=== PATIENT | female | born 1935 | race Caucasian/White ===

== ENCOUNTER 2018-01-23 16:00 | Inpatient (IN) ==
[2018-01-23] MEDS ORDERED: LORazepam 1 MG TABLET PO PRN (16:43)
[2018-01-23] MEDS ORDERED: SENNOSIDES 8.6 MG TABLET PO PRN (16:43)
[2018-01-23] MEDS ORDERED: DiphenhydrAMINE 50 MG/ML INJECTION IVP PRN (16:43)
[2018-01-23] MEDS ORDERED: DiphenhydrAMINE 25 MG CAPSULE PO PRN (16:43)
[2018-01-23] MEDS ORDERED: FALL RISK - PHARMACY CONSULT XX ONE (16:43)
--- NOTE | 2018-01-23 17:13 | IRU History & Physical Report ---
[facility] Date: Date: 01/23/18 Time: 170 Chief complaint: I had my hip replaced HPI: Ms. Webb is a pleasant 82 yo female referred by Dr. Vicente Ramon. Her primary care provider is Dr. Oscar Neff. Mrs. Webb had a scheduled right total hip arthroplasty performed by Dr. Ramon on 01/21/2018. Surgery went well but in the postoperative timeframe she developed paroxysmal atrial fibrillation with rapid ventricular response. She apparently has a long history of paroxysmal atrial fibrillation dating back to 2011. She has been on warfarin in this regard. She has been offered RF ablation procedure in the past but declined that. At this time she developed rapid ventricular response in the postoperative timeframe and was transferred to the intensive care unit. She was seen by Dr. Lopez. She was treated medically with verapamil and esmolol. She had control of her rate. She was asymptomatic. She had no chest pain. Consideration was given to cardioversion but this was decided against due to her recent medical standpoint as well as the fact that she had a controlled rate. The patient has developed multiple functional deficits as a result of her recent right total hip arthroplasty. In addition she requires close monitoring of her cardiac status in view of the recent atrial fibrillation with rapid ventricular response. The patient lives with her son in their own home. She has about 2 steps to get up in her home. She has been walking with a single-point cane at home. We discussed the issue of resuscitation with the patient. She declines CPR or any other heroic resuscitative efforts in the event of an arrest. Prior level of functioning is as follows: She was independent for all activities except for walking which was modified independent due to the use of a single-point cane. Current level of functioning is as follows: She is independent for eating require supervision for grooming, and upper body dressing. She requires moderate assistance for lower body dressing, minimum assistance for toileting, bed/chair/wheelchair transfers and toilet transfers. She requires total assistance for walking. She walks with a rolling walker 20 feet. The following medical conditions are noted and require active monitoring and/or management: 1. s/p total hip arthroplasty 2. Paroxysmal atrial fibrillation with episodes of rapid ventricular response 3. Benign essential hypertension The following therapies will be needed: 1. Physical therapy: for transfers and ambulation and stairs. 2. Occupational therapy: for ADL's and transfers. 3. Medical management: for the above conditions. 4. 24 hour Rehabilitation Nursing to monitor and address the following: Close monitoring of her cardiac status, blood pressure and wound monitoring. 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 Bilateral cataract procedure. Right total hip arthroplasty Family History: Family History (Last Reviewed 12/25/17 @ 13:32 by Vicente Ramon MD) Mother Arthritis Heart failure Father Liver cancer - Social History Smoking status: Never smoker second hand exposure: No Substance use type: does not use Alcohol intake: never Alcohol intake frequency: does not drink Housing: house Household members: other (1 adult son) Current occupational status: retired Does patient use chewing tobacco?: No Current residence: Apartment/Private Home Social history: Patient works for [employer] in [place]. She is retired twice from that company. She is a . She lives with her son in their own home. Review of Systems - Constitutional Constitutional: Present: weight gain. Absent: anorexia, chills, fatigue, fever( s), headache(s), lethargy, malaise, night sweats, weakness, weight loss - EENMT Eyes: Absent: blurry vision, change in vision, diplopia Mouth/Throat: Absent: changes in swallowing, painful swallowing, change in taste , bleeding gums, change in voice - Cardiovascular Cardiovascular: Present: dyspnea on exertion. Absent: chest pain, palpitations , syncope, orthopnea, edema, cyanosis, heart murmur Rhythm: Present: abnormal rhythm Vascular: Absent: intermittent claudication, pedal edema, unilateral swelling - Respiratory Respiratory: Present: dyspnea on exertion. Absent: cough, dyspnea, hemoptysis, wheezing, pain on inspiration, chest congestion, excessive phlegm production - Gastrointestinal Gastrointestinal: Absent: abdominal pain, change in bowel habits, constipation, diarrhea, dyspepsia, dysphagia, early satiety, hematochezia, melena, nausea, vomiting - Musculoskeletal Musculoskeletal: Present: arthralgias. Absent: abnormal gait, back pain, joint swelling, limited range of motion, muscle weakness - Integumentary/Breasts Integumentary: Absent: alopecia, erythema, lesions, pruritus, rash, jaundice - Neurological Neurological: Absent: abnormal gait, abnormal movements, abnormal speech, confusion, convulsions, dizziness, focal weakness, frequent falls, headache(s), loss of vision, memory loss, numbness, paresthesias, tremor(s) - Psychiatric Psychiatric: Absent: abnormal sleep pattern, anxiety, depression - Endocrine Endocrine: Absent: cold intolerance, flushing, heat intolerance, palpitations - Hematologic/Lymphatic Hematologic/Lymphatic: Absent: easy bleeding, easy bruising, lymphadenopathy - Allergic/Immunologic Allergic/Immunologic: Absent: urticaria Medications Home Medications Medication Instructions Recorded Confirmed Type Levothyroxine Sodium 112 mcg PO DAILY #0 05/11/14 01/21/18 History colon health 1 cap PO 1200 #0 10/28/16 01/21/18 History Calcium 500 + D [Os Jerry-D 500] 1 tab PO DAILY 12/25/17 01/21/18 History Losartan [Cozaar] 50 mg PO BID 12/25/17 01/21/18 History Louise-3/Dha/Epa/Fish Oil [Fish Oil 1 each PO DAILY 12/25/17 01/21/18 History 1,000 mg Softgel] Verapamil HCl [Verapamil ER] 180 mg PO DAILY 12/31/17 01/21/18 History Potassium Chloride [K-DUR 20 mEq 1 tab PO TID #30 tab 01/14/18 01/21/18 Rx Tablet] Ergocalciferol (Vitamin D2) 50,000 unit PO NOTE 01/21/18 01/21/18 History [Vitamin D2] Acetaminophen [Tylenol] 650 mg PO QID tab 01/23/18 Rx Enoxaparin Sodium [Lovenox] 70 mg SQ BID syringe 01/23/18 Rx Metoprolol Tartrate 100 mg PO BID #0 01/23/18 01/21/18 Rx PEG 3350 17gm PACKET [Miralax] 17 gm PO DAILY packet 01/23/18 Rx Tramadol [Ultram] 50 - 100 mg PO Q6H PRN tab 01/23/18 Rx Verapamil SR [Calan Sr] 180 mg PO DAILY tab 01/23/18 Rx Allergies Allergy/AdvReac Type Severity Reaction Status Date / Time Penicillins Allergy Mild Itching Verified 01/21/18 09:58 amlodipine AdvReac Unknown Nausea and Verified 01/21/18 09:58 Vomiting sulfamethoxazole AdvReac Nausea Verified 01/21/18 09:59 [From Bactrim] trimethoprim [From Bactrim] AdvReac Nausea Verified 01/21/18 09:59 Exam Height/Weight/BMI: Weight 69.8 kg - Constitutional Present: no acute distress, well nourished, well developed, average body habitus , cooperative - Routine HEENT Exam Head: Present: normocephalic, atraumatic. Absent: cushingoid faces, abrasion, laceration, hematoma Eye: Present: EOMI, PERRL. Absent: conjunctival icterus, scleral injection, periorbital swelling, nystagmus ENT: Present: mucous membranes moist, oropharynx clear - Routine Neck Exam Present: supple, full ROM, trachea midline. Absent: lymphadenopathy, thyromegaly, tenderness, swelling - Routine Chest/Breast/Axilla Exam Chest wall: Absent: tenderness, mass Axillae: Absent: lymphadenopathy, mass - Routine Respiratory Exam Present: CTA bilaterally. Absent: accessory muscle use, decreased breath sounds , prolonged expiratory phase, rales, respiratory distress, rhonchi, stridor, wheezes, crackles, distant breath sounds - Routine Cardiovascular Exam Present: S1, S2, no murmur, irregularly irregular. Absent: gallop, S3, S4, click, irregular rhythm - Routine Abdominal Exam Present: soft, normoactive bowel sounds, non distended, non tender. Absent: rebound, guarding, firm, rigid, organomegaly, mass, hernia, wound - Routine Extremities Exam Present: no edema, non tender, pulses intact, normal capillary refill. Absent: cyanosis, clubbing - Routine Back/Spine/Pelvis Exam Back/Spine: Present: full ROM. Absent: scoliosis, kyphosis - Routine Skin Exam Present: intact, dry, warm. Absent: cyanosis, erythema, pallor, mottling, petechiae, urticaria, lesions, jaundice - Routine Neurological Exam Present: alert, oriented X3, CN II-XII intact, moving all extremities, normal speech - Routine Psychiatric Exam Present: normal affect, normal thought process, cooperative, good insight, good judgment. Absent: depressed, anxious Sepsis Assessment - Evaluation Severe Sepsis: none seen IRU A/P (1) S/P hip replacement Qualifiers: Laterality: left Qualified Code(s): Z96.642 - Presence of left artificial hip joint Current visit: Yes Status: Acute (2) A-fib Qualifiers: Atrial fibrillation type: paroxysmal Qualified Code(s): I48.0 - Paroxysmal atrial fibrillation Current visit: No Status: Acute (3) Hypertension Qualifiers: Hypertension type: essential hypertension Qualified Code(s): I10 - Essential (primary) hypertension Current visit: No Status: Acute (4) Paroxysmal atrial fibrillation Current visit: No Status: Chronic DVT Prophylaxis: SCD's, Coumadin Resuscitation Status: Do Not Resuscitate - Course Hospital Course: Hoang Mondragon MD: - Interventions to Obtain Goals Goals Progress/Modifications: Patient has developed multiple functional deficits related to her recent surgery. She has a long history of paroxysmal atrial fibrillation but with recent rapid ventricular response. She has hypertension. She requires a multidisciplinary approach including PT and OT and 24 rehabilitation nursing with medical supervision.
--- NOTE | 2018-01-23 17:39 | IRU 24Hr Post Admit Eval ---
24 Hr Post Admission Physical - Relevant Changes Relevant Changes: No Reviewed: I have reviewed the patient's information and concur with the finding and results of the pre-admission screen. Certification: I certify the patient for rehabilitation. - Patient Condition (1) S/P hip replacement Status: Acute Qualifiers: Laterality: left Qualified Code(s): Z96.642 - Presence of left artificial hip joint Code(s): Z96.649 - Presence of unspecified artificial hip joint Classification: Present on IRF Admission, IRF Tx That Should Address Diagnosis, Diagnosis Requiring Medical Follow Up (2) A-fib Status: Acute Qualifiers: Atrial fibrillation type: paroxysmal Qualified Code(s): I48.0 - Paroxysmal atrial fibrillation Code(s): I48.91 - Unspecified atrial fibrillation Classification: Present on IRF Admission, IRF Tx That Should Address Diagnosis, Diagnosis Requiring Medical Follow Up (3) Hypertension Status: Acute Qualifiers: Hypertension type: essential hypertension Qualified Code(s): I10 - Essential (primary) hypertension Code(s): I10 - Essential (primary) hypertension Classification: Present on IRF Admission, IRF Tx That Should Address Diagnosis, Diagnosis Requiring Medical Follow Up (4) Paroxysmal atrial fibrillation Status: Chronic Code(s): I48.0 - Paroxysmal atrial fibrillation Classification: Present on IRF Admission, IRF Tx That Should Address Diagnosis, Diagnosis Requiring Medical Follow Up - Prior Functional Status Lives With: Other (with adult son) Residence Type: Apartment/Private Home Assitive Devices: Straight Cane Prior Functional Status: Indep. at home or school, Indep. w/ IADL - Current Functional Status Current Level of Function: Current level of functioning is as follows: She is independent for eating require supervision for grooming, and upper body dressing. She requires moderate assistance for lower body dressing, minimum assistance for toileting, bed/chair/wheelchair transfers and toilet transfers. She requires total assistance for walking. She walks with a rolling walker 20 feet. Failed Alternative Therapy: Arrived from Acute Care Patient Requirements: The patient requires oversight by rehabilitation physician to manage their rehabilitation treatment plan and multidisciplinary approach to care that can only be provided in an IRF and requires a multidisciplinary approach to care, provided by professional PTs, OTs, STs, dieticians, RTs, rehabilitation nurses and is not available in lesser levels of care. Limitations Req: Mobility Impairment, ADL Impairment Physical Therapy Minutes: 90 Occupational Therapy Minutes: 90 Therapy: The patient is to receive therapy at least 5 days a week. ROM Deficit: Right Lower Extremity - Complications/Comorbidities Impact on Functional Outcomes: Patient's pain as well as potential rapid ventricular response from her atrial fibrillation may negatively impact her functional outcome. - Plan to Avoid Complications Plan to Avoid Complications: The patient cannot receive this care in a lesser intensive setting such as Alf or Outpatient Therapy due to the patient requiring the following : Need for a multidisciplinary approach with PT, OT and 24 hour rehabilitation nursing to monitor atrial fibrillation and cardiac status as well as blood pressure. She requires medical supervision of these as well. .
[2018-01-23 17:56] VITALS: BMI 29.6
[2018-01-23] MEDS: ACETAMINOPHEN 325 MG TABLET PO SCH (18:38)
[2018-01-23] MEDS ORDERED: BISACODYL 10 MG SUPPOSITORY RECTALLY SCH (20:00)
[2018-01-23] MEDS: DOCUSATE SODIUM 100 MG CAPSULE PO SCH (20:42)
[2018-01-23] MEDS: ENOXAPARIN 80 MG/0.8 ML INJECTION SQ SCH (20:43)
[2018-01-23] MEDS: LOSARTAN 50 MG TABLET PO SCH (20:44)
[2018-01-23] MEDS: SENNOSIDES 8.6 MG TABLET PO SCH (20:44)
[2018-01-23] MEDS: NOZIN NASAL SWAB NAS SCH (20:46)
[2018-01-24] MEDS: NOZIN NASAL SWAB NAS SCH ×4 (00:23→21:08)
[2018-01-24] MEDS: ACETAMINOPHEN 325 MG TABLET PO SCH ×5 (01:25→21:09)
[2018-01-24] MEDS: TRAMADOL 50 MG TABLET PO PRN ×2 (05:05→23:11)
[2018-01-24] MEDS: LEVOTHYROXINE 112 MCG TABLET PO SCH ×2 (05:08→06:14)
[2018-01-24] MEDS: LOSARTAN 50 MG TABLET PO SCH ×2 (08:15→21:08)
[2018-01-24] MEDS: DOCUSATE SODIUM 100 MG CAPSULE PO SCH (08:15)
[2018-01-24] MEDS: POLYETHYL GLYCOL 3350 17gm PACKET PO SCH (08:25)
--- NOTE | 2018-01-24 08:36 | Consult Note ---
Consult Information - Data of Consult Consult date: 01/24/18 Requesting Physician: Hoang Mondragon MD Primary Care Provider: Richar Neff MD Family Provider: Richar Neff MD - Consult Narrative Reason for consult: S/P right hip arthroplasty, a-fib History of present illness: Ms. Tika Webb is a pleasant 82-year-old female patient of Dr. Neff who underwent elective right total hip arthroplasty performed by Dr. Ramon on 2017. She reports that her surgery went well but in the postoperative timeframe she developed paroxysmal atrial fibrillation with rapid ventricular response. She was transferred to the ICU and Dr. Lopez, her freezer worker was consulted. She was treated medically with an esmolol drip as well as continuation of her home verapamil. She established rate control and the esmolol drip was discontinued on 01/22/18. At that time, Dr. Lopez recommended increasing her home metoprolol dose from 50mg BID to 100mg BID while continuing her home verapamil at 180mg daily for continued rate control. She apparently has a long history of paroxysmal atrial fibrillation dating back to 2011 and is chronically anticoagulated on warfarin. She has been offered RF ablation procedure in the past but declined. She underwent cardioversion in June 2015. Throughout her acute admission, she remained asymptomatic without chest pain, shortness of breath, dizziness, lightheadedness or syncope. She was noted to have some acute post op anemia with labs continuing to show her hemoglobin trending down. She has a history of hypothyroidism and is currently on Synthroid 122mcg daily. Recent TSH revealed low TSH of 0.17 on 12/25/17. Given she has developed multiple functional deficits as a result of her recent right total hip arthroplasty as well as her continued need for close monitoring of her cardiac status in view of the recent atrial fibrillation with rapid ventricular response, she was admitted to IRU. The hospitalist service was consulted for continued medical management. She is seen on admission in the dining room after having completed almost all of her breakfast. She reports that she doesn't' have much of an appetite but is eating well. She admits to having a brief episode of lightheadedness this morning after standing up but denies any other complaints or concerns. No chest pain, shortness of breath, abdominal pain, nausea, vomiting or dysuria. Her bowels are moving and her pain is well controlled. She declines CPR or any other heroic resuscitative efforts in the event of an arrest. Past Medical History Patient Stated Medical History S/P rigth hip arthroplasty - 01/21/18, Dr. Ramon. Paroxysmal a-rib with history of RVR. Hypertension. Nonrheumatic mitral and tricuspid insufficiency. Chronic anticoagulation on warfarin. Hypothyroidism. Osteoarthritis. Cataracts. History of hypokalemia- resolved. History of cardioversion - 06/20/15, Dr. Lopez. Surgical History: Appendix - 1963. Adhesions removed off of ovaries - 1965. Bilateral cataract procedure. Right total hip arthroplasty - 01/21/18, Dr. Ramon. Cardioversion - 06/20/15. Family History Updates: Mother - Arthritis, Heart failure. Father - Liver cancer. - Social History Smoking status: Never smoker Substance use type: does not use Alcohol intake frequency: does not drink Housing: house Household members: family (adult son) Current occupational status: employed ([employer] in [place] - retired twice, but continues to work), retired Current residence: Apartment/Private Home Social history: PCP - Dr. Neff. Cardio - Dr. Lopez. Review of Systems All systems PM: 10-point ROS was reviewed, no additional remarkable complaints except - Constitutional Constitutional: Present: fatigue, weakness (generalized). Absent: chills, fever (s), headache(s), lethargy, malaise, night sweats - EENMT Eyes: Absent: diplopia, loss of vision, photophobia Ears: Absent: ear pain Balance: Absent: vertigo, falling to one side Nose: Absent: nosebleeds Mouth/Throat: Absent: sore throat, changes in swallowing, dry mouth - Cardiovascular Cardiovascular: Present: heart murmur. Absent: chest pain, palpitations, syncope, dyspnea on exertion, orthopnea, edema Vascular: Absent: pallor of an extermity, pedal edema - Respiratory Respiratory: Absent: cough, dyspnea, hemoptysis, dyspnea on exertion, wheezing, pain on inspiration, chest congestion - Gastrointestinal Gastrointestinal: Absent: abdominal pain, constipation, diarrhea, hematochezia, melena, nausea, vomiting - Genitourinary Genitourinary: Absent: dysuria, flank pain, hematuria Menstruation: post menopausal - Musculoskeletal Musculoskeletal: Present: muscle weakness. Absent: back pain, deformity - Integumentary/Breasts Integumentary: Absent: rash - Neurological Neurological: Present: weakness. Absent: confusion, convulsions, focal weakness , headache(s) - Psychiatric Psychiatric: Absent: anxiety, depression - Endocrine Endocrine: Absent: flushing, palpitations - Hematologic/Lymphatic Hematologic/Lymphatic: Present: easy bruising (chronic anticoagulation) - Allergic/Immunologic Allergic/Immunologic: Absent: seasonal rhinorrhea Medications Home Medications Medication Instructions Recorded Confirmed Type Levothyroxine Sodium 112 mcg PO DAILY #0 05/11/14 01/24/18 History colon health 1 cap PO 1200 #0 10/28/16 01/21/18 History Calcium 500 + D [Os Jerry-D 500] 1 tab PO DAILY 12/25/17 01/21/18 History Losartan [Cozaar] 50 mg PO BID 12/25/17 01/24/18 History [place]-3/Dha/Epa/Fish Oil [Fish Oil 1 each PO DAILY 12/25/17 01/21/18 History 1,000 mg Softgel] Verapamil HCl [Verapamil ER] 180 mg PO DAILY 12/31/17 01/21/18 History Potassium Chloride [K-DUR 20 mEq 1 tab PO TID #30 tab 01/14/18 01/24/18 Rx Tablet] Ergocalciferol (Vitamin D2) 50,000 unit PO NOTE 01/21/18 01/21/18 History [Vitamin D2] Acetaminophen [Tylenol] 650 mg PO QID tab 01/23/18 Rx Enoxaparin Sodium [Lovenox] 70 mg SQ BID syringe 01/23/18 Rx Metoprolol Tartrate 100 mg PO BID #0 01/23/18 01/24/18 Rx PEG 3350 17gm PACKET [Miralax] 17 gm PO DAILY packet 01/23/18 01/24/18 Rx Tramadol [Ultram] 50 - 100 mg PO Q6H PRN tab 01/23/18 01/24/18 Rx Verapamil SR [Calan Sr] 180 mg PO DAILY tab 01/23/18 01/24/18 Rx Allergies Allergy/AdvReac Type Severity Reaction Status Date / Time Penicillins Allergy Mild Itching Verified 01/21/18 09:58 amlodipine AdvReac Unknown Nausea and Verified 01/21/18 09:58 Vomiting sulfamethoxazole AdvReac Nausea Verified 01/21/18 09:59 [From Bactrim] trimethoprim [From Bactrim] AdvReac Nausea Verified 01/21/18 09:59 Exam Vital Signs: Temperature 98.3 F 01/24/18 08:00 Pulse Rate 123 H 01/24/18 08:00 Respiratory Rate 18 01/24/18 08:00 Blood Pressure 140/76 H 01/24/18 08:00 Pulse Oximetry 99 01/24/18 08:00 Telemetry Rhythm: A-fib with RVR Height/Weight/BMI: Height 5 ft 5 in Weight 153 lb 14.122 oz Body Mass Index 29.6 - Constitutional Present: no acute distress, well nourished, well developed, cooperative - Routine HEENT Exam Head: Present: normocephalic, atraumatic Eye: Present: PERRL. Absent: conjunctival icterus ENT: Present: mucous membranes moist, oropharynx clear - Routine Neck Exam Present: supple, full ROM, trachea midline - Routine Chest/Breast/Axilla Exam Chest wall: Absent: tenderness, pacemaker - Routine Respiratory Exam Present: CTA bilaterally. Absent: accessory muscle use, dyspnea, rales, respiratory distress, rhonchi, stridor, wheezes, crackles - Routine Cardiovascular Exam Present: irregularly irregular (a-fib with RVR) - Routine Abdominal Exam Present: soft, normoactive bowel sounds, non distended, non tender - Routine Extremities Exam Present: no edema, pulses intact - Routine Back/Spine/Pelvis Exam Back/Spine: Present: full ROM. Absent: vertebral tenderness - Routine Skin Exam Present: dry, pallor, warm. Absent: jaundice Comments: afebrile. - Routine Neurological Exam Present: alert, oriented X3, moving all extremities, hearing grossly intact, normal speech. Absent: facial asymmetry - Routine Psychiatric Exam Present: normal affect, cooperative Results - Labs CBC & Chem 7: 01/24/18 04:03 01/24/18 04:03 Assessment and Plan (1) S/P hip replacement Problem details: 01/21/18 - Dr. Ramon (right). Current visit: Yes Status: Acute (2) Paroxysmal atrial fibrillation Current visit: Yes Status: Chronic (3) Nonrheumatic mitral valve insufficiency Current visit: No Status: Chronic (4) Non-rheumatic tricuspid valve insufficiency Current visit: No Status: Chronic Assessment and Plan: Assessment: S/P rigth hip arthroplasty - 01/21/18, Dr. Ramon. Generalized debility and gait instability secondary to recent surgery. Paroxysmal a-rib with RVR. Acute blood loss anemia. Hyperthyroidism - history of hypothyroidism currently on Synthroid. Hypertension. Nonrheumatic mitral and tricuspid insufficiency. Chronic anticoagulation on warfarin. Osteoarthritis. Cataracts. History of hypokalemia- resolved. History of cardioversion - 06/20/15, Dr. Lopez. Plan - 01/24/18: Admit IRU for continued therapies and pain control per Dr. Mondragon for improvement in functional abilities and strength. A-fib with RVR (HR 140-150) on admission. Recent treatment in ICU with esmolol drip with improvement. Drip discontinued 01/22/18. Continue home medications - Cozaar 50mg BID and verapamil SR 180mg daily. Home metoprolol dose was increased from 50mg BID to 100mg BID by cardiology on . Will continue metoprolol 100mg BID. Consult Dr. Lopez for continued cardiac care. Continue to monitor closely on telemetry. History of hypothyroidism. Home Synthroid dose 112mcg daily. TSH on 01/22/18 was low at 0.17. Will decrease Synthroid dose to 88mcg daily and recommend rechecking TSH in 4-6 weeks. Hemoglobin slow trending down since surgery. Currently Hgb 9.0. Continue to monitor periodically. Patient asymptomatic without signs of acute bleeding. Lovenox for DVT prophylaxis and bridge therapy with Coumadin until INR therapeutic - currently INR 1.47. SCDs. Encourage incentive spirometry. Recheck labs on 01/26/18 to monitor blood counts, electrolytes and renal function. DVT Prophylaxis: SCD's, Lovenox, Coumadin Resuscitation Status: Do Not Resuscitate - Time spent with patient Time with patient PN: 50 minutes - Physician Narrative Physician: Joanne Angulo MD Narrative: Date: 01/24/18 Time: 1949 I have independently evaluated and examined this patient. I reviewed the chart, the patient's history, and the STEAM OVEN OPERATOR/PA's documented findings as above. We discussed and formulated the assessment and plan as above with additions as below: Mrs. Webb transfer to IRU yesterday evening following right elective WESLEY on 01/21 complicated by atrial fibrillation as described above. She denies current palpitations and reports pain control is adequate. She had minor lightheadedness this morning but was subsequently able to get up and walk with physical therapy without difficulty today. She has no concerns other than getting stronger and being able to go home functionally independently. NAD, alert, fluent speech Respirations nonlabored, good airflow, breath sounds clear Regular rhythm, S1-S2 INR 1.47, hemoglobin 9.0 (preop hemoglobin 13.3 on 01/14/18) Medications adjusted as noted above to minimize recurrent tachycardia. Monitor hemoglobin intermittently, do not anticipate significant further drop in hemoglobin at this point. Hospital Course Summary Disclaimer: The visit summary below is not to be considered part of the above Progress Note. Hospital Course: Plan - 01/24/18: Admit IRU for continued therapies and pain control per Dr. Mondragon for improvement in functional abilities and strength. A-fib with RVR (HR 140-150) on admission. Recent treatment in ICU with esmolol drip with improvement. Drip discontinued 01/22/18. Continue home medications - Cozaar 50mg BID and verapamil SR 180mg daily. Home metoprolol dose was increased from 50mg BID to 100mg BID by cardiology on . Will continue metoprolol 100mg BID. Consult Dr. Lopez for continued cardiac care. Continue to monitor closely on telemetry. History of hypothyroidism. Home Synthroid dose 112mcg daily. TSH on 01/22/18 was low at 0.17. Will decrease Synthroid dose to 88mcg daily and recommend rechecking TSH in 4-6 weeks. Hemoglobin slow trending down since surgery. Currently Hgb 9.0. Continue to monitor periodically. Patient asymptomatic without signs of acute bleeding. Lovenox for DVT prophylaxis and bridge therapy with Coumadin until INR therapeutic - currently INR 1.47. SCDs. Encourage incentive spirometry. Recheck labs on 01/26/18 to monitor blood counts, electrolytes and renal function.
[2018-01-24] MEDS ORDERED: WARFARIN - PHARMACY CONSULT MC ONE (08:55)
[2018-01-24] MEDS ORDERED: DOCUSATE SODIUM 100 MG CAPSULE PO PRN (09:26)
--- NOTE | 2018-01-24 09:27 | Pharmacy Consult ---
Pharmacy Consult-Warfarin - Laboratory Information 01/24/18 04:03 INR 1.47 H - Consult Information Not in target range yet. Warfarin 6mg ordered for today. Thank you.
[2018-01-24] MEDS: ENOXAPARIN 80 MG/0.8 ML INJECTION SQ SCH ×2 (09:32→21:08)
--- NOTE | 2018-01-24 11:26 | IRU Progress Note ---
- Subjective/Serverity of Illness Date: 01/24/18 Ms. Webb was assessed in her room today with therapy present. She is cooperative with therapy. Occupational therapy noted that there was some bump in her heart rate with activity. Reviewed telemetry indicates a heart rate maximum of 133, in atrial fibrillation pattern. She was however asymptomatic in this regard. She denies any dyspnea. She denies any chest pain. She would like to use her "Sepaton" probiotic from home and I told her that would be fine. She reports that the pain is a limiting factor but is reasonably well controlled at present. Exam Vital Signs: Temperature 98.3 F 01/24/18 08:00 Pulse Rate 123 H 01/24/18 08:00 Respiratory Rate 18 01/24/18 08:00 Blood Pressure 140/76 H 01/24/18 08:00 Pulse Oximetry 99 01/24/18 08:00 Height/Weight/BMI: Height 1.65 m Weight 69.8 kg Body Mass Index 29.6 - Constitutional Present: no acute distress, well nourished, well developed, cooperative Comments: loquacious - Routine HEENT Exam Head: Present: normocephalic Eye: Present: EOMI. Absent: scleral injection ENT: Present: mucous membranes moist, oropharynx clear - Routine Neck Exam Present: supple - Routine Respiratory Exam Present: CTA bilaterally. Absent: wheezes - Routine Cardiovascular Exam Present: S1, S2, murmur, irregularly irregular - Routine Abdominal Exam Present: soft, normoactive bowel sounds, non distended. Absent: tenderness - Routine Extremities Exam Present: edema (trace edema right lower extremity as anticipated.), normal capillary refill - Routine Skin Exam Present: dry, warm - Routine Neurological Exam Present: alert, oriented X3, CN II-XII intact - Routine Psychiatric Exam Present: normal affect, cooperative Results IRU - Labs Labs: Reviewed INR which is subtherapeutic at 1.47, managed by pharmacy. Also reviewed telemetry strips demonstrating atrial fibrillation with rates as high as 133 but now back down. IRU A/P (1) S/P hip replacement Qualifiers: Laterality: left Qualified Code(s): Z96.642 - Presence of left artificial hip joint Problem details: 01/21/18 - Dr. Ramon (right). Current visit: Yes Status: Acute Pain management appears to be adequate. We will try to get back on narcotics and rely on Tylenol etc. Unable to use nonsteroidals in view of her use of warfarin. (2) A-fib Qualifiers: Atrial fibrillation type: paroxysmal Qualified Code(s): I48.0 - Paroxysmal atrial fibrillation Current visit: No Status: Acute Has atrial fibrillation on telemetry which is been rather asymptomatic. Heart rate does bump up with activity as anticipated. INR managed by pharmacy and somewhat subtherapeutic at present. (3) Hypertension Qualifiers: Hypertension type: essential hypertension Qualified Code(s): I10 - Essential (primary) hypertension Current visit: No Status: Chronic Blood pressure is been reasonably well-controlled while on rehabilitation. (4) Paroxysmal atrial fibrillation Current visit: No Status: Chronic DVT Prophylaxis: SCD's, Lovenox, Coumadin Resuscitation Status: Do Not Resuscitate - Course Hospital Course: Hoang Mondragon MD: 01/24/18 11:27 Getting started with therapy and appears to be participatory. Reports pain adequately controlled in the hip. Atrial fib with occasional responses up to 133, asymptomatic. Denies dyspnea. - Interventions to Obtain Goals PT Treatment Plan: Balance/Proprioception, Functional Activities, Manual Therapy , Patient/Family Education, Therapeutic Exercise OT Treatment Plan: ADL (Basic Care), Balance Training, IADL, Pt./Family Education, Ther. Exercise for ADL Goals Progress/Modifications: Patient seems to be settling into rehabilitation routine well. Denies chest pain or shortness of breath. Reports pain is fairly well-controlled. We will try to schedule regular doses of Tylenol and just use narcotics as needed. In addition, we are monitoring her atrial fibrillation which at present is asymptomatic and not resulting in hypotension. Please note that the patient's individual plan of care was developed and documented today, requiring review of therapy notes, medical conditions and anticipated functional recovery. This required additional medical decision making with regard to interaction of the patient's medical issues with the anticipated functional recovery. Please see separate document
--- NOTE | 2018-01-24 11:31 | IRU Plan of Care ---
[facility] Overall Plan of Care - Date Date: 01/24/18 - Patient Impairments (1) S/P hip replacement Qualifiers: Laterality: left Qualified Code(s): Z96.642 - Presence of left artificial hip joint Code(s): Z96.649 - Presence of unspecified artificial hip joint Status: Acute Classification: Present on IRF Admission, IRF Tx That Should Address Diagnosis, Diagnosis Requiring Medical Follow Up (2) Paroxysmal atrial fibrillation Code(s): I48.0 - Paroxysmal atrial fibrillation Status: Chronic Classification: Present on IRF Admission, IRF Tx That Should Address Diagnosis, Diagnosis Requiring Medical Follow Up (3) Nonrheumatic mitral valve insufficiency Code(s): I34.0 - Nonrheumatic mitral (valve) insufficiency Status: Chronic Classification: Present on IRF Admission, Diagnosis Requiring Medical Follow Up (4) Non-rheumatic tricuspid valve insufficiency Code(s): I36.1 - Nonrheumatic tricuspid (valve) insufficiency Status: Chronic Classification: Present on IRF Admission, Diagnosis Requiring Medical Follow Up (5) Essential (primary) hypertension Code(s): I10 - Essential (primary) hypertension Status: Chronic Classification: Present on IRF Admission, IRF Tx That Should Address Diagnosis, Diagnosis Requiring Medical Follow Up - Relevant Changes Relevant Changes: No Reviewed: I have reviewed the patient's information and concur with the finding and results of the pre-admission screen. Certification: I certify the patient for rehabilitation. - Medical Prognosis Medical Prognosis: Good Vital Signs: Last Vital Signs Temp 98.3 F 01/24/18 08:00 Pulse 123 H 01/24/18 08:00 Resp 18 01/24/18 08:00 BP 140/76 H 01/24/18 08:00 Pulse Ox 99 01/24/18 08:00 - Anticipated Interventions Anticipated Interventions: The patient requires inpatient IRF care for PT and OT for residuals remaining from hip replacement and atrial fib with RVR resulting in muscular weakness and strength deficits. An individualized overall plan of care has been developed after careful review of the patient's preadmission screening, post admission physician evaluation and assessments of all therapy disciplines and/or other pertinent clinicians involved in treating the patient. This indicates medical necessity and rehabilitation necessity have been established through a thorough review of all available medical information. ROM Deficit: Right Lower Extremity Strength Deficits: Right Lower Extremity - Current Functional Status Failed Alternative Therapy: Arrived from Acute Care Patient Requires: The patient requires oversight by rehabilitation physician to manage their rehabilitation treatment plan and multidisciplinary approach to care that can only be provided in an IRF and requires a multidisciplinary approach to care, provided by professional PTs, OTs, STs, rehabilitation nurses, and may require STs, dieticians, and RTS. This is not available in lesser levels of care. Physical Therapy Minutes: 90 Occupational Therapy Minutes: 90 Therapy: The patient is to receive therapy at least 5 days a week. - Anticipated LOS/Outcomes Anticipated Functional Outcome: It is anticipated the patient will go to return to her home and live with her son at independent or modified independent level of functioning for ADLs, ambulation, transfers etc. It is anticipated that her atrial fibrillation will be adequately controlled and remain asymptomatic. Anticipated Length of Stay (days): 10 Anticipated DC Destination: Home, Self Care, Home Health Service Home Safety Plan: The patient will be provided with the development of a Home Safety Plan for return to a home or home-like environment and and to ensure safety post discharge. - Plan to Avoid Complications Barriers to Attaining Goals: Weakness, Endurance, Pain Control Plan to Avoid Complications: The patient cannot receive this care in a lesser intensive setting such as Senior Living or Outpatient Therapy due to the patient requiring the following : Patient has had rapid ventricular response from her atrial fibrillation. She has history of elevated blood pressure as well. She requires a multidisciplinary approach with PT, OT, 24 hour rehabilitation nursing and medical supervision to allow her to return to her previous level of functioning at a modified independent or independent level. This cannot be provided at a lower level of care.
[2018-01-24] MEDS ORDERED: WARFARIN 6 MG TABLET PO SCH (12:00)
--- NOTE | 2018-01-24 17:13 | Cardiology Consult Note ---
<Verito Coronado - Last Filed: 01/24/18 17:07> History of Present Illness Consult date: 01/24/18 Consult reason: atrial fibrillation Chief complaint: AFib RVR History of present illness: Tika is a 82 year old female who is well known to Dr. Lopez with a history PAF , nonrheumatic mitral and tricuspid insufficiency, HTN who is S/P Right hip arthroplasty and had Afib with RVR. She is chronically in A Fib, rate controlled and was discharged to IRU yesterday and this morning again had Afib RVR .Dr. Lopez is consulted for management and we appreciate the consult. She is seen in her room on IRU. She is asymptomatic. Currently rate is controlled. She denies chest pain or pressure, she denies racing or skipping heart beats, she denies nausea, dizziness or lightheadedness. Review of Systems - Constitutional Constitutional: Absent: chills, fatigue, fever(s) - EENMT Eyes: Absent: change in vision Balance: Absent: vertigo Mouth/Throat: Absent: sore throat - Cardiovascular Cardiovascular: Absent: chest pain, palpitations, syncope, dyspnea on exertion, orthopnea - Respiratory Respiratory: Absent: cough, dyspnea - Gastrointestinal Gastrointestinal: Absent: abdominal pain, nausea, vomiting - Genitourinary Genitourinary: Absent: dysuria - Integumentary/Breasts Integumentary: Absent: rash - Neurological Neurological: Absent: dizziness - Endocrine Endocrine: Absent: palpitations PFSH Patient Stated Medical History Cataracts Yes Cardiac Arrhythmia Yes: AFib Hypertension Yes Valvular Heart Disease Yes: stable tricuspid and mitral valve insuff per cardiology Sleep Apnea No Diabetes Mellitus Type 1 No Diabetes Mellitus Type 2 No Constipation No Hx Incontinence No Osteoarthritis Yes: right hip Other Musculoskeletal Yes: RA; osteopenia Blood Transfusions Yes: no known reactions Clinic Medical History (Last Reviewed 12/25/17 @ 13:32 by Vicente Ramon MD) Atrial fibrillation (Chronic Medical) Surgical History: Appendix - 1963. Adhesions removed off of ovaries - 1965. Bilateral cataract procedure. Right total hip arthroplasty - 01/21/18, Dr. Ramon. Cardioversion - 06/20/15. Family History: Family History (Last Reviewed 12/25/17 @ 13:32 by Vicente Ramon MD) Mother Arthritis Heart failure Father Liver cancer Family History Updates: Mother - Arthritis, Heart failure. Father - Liver cancer. - Social History Smoking status: Never smoker second hand exposure: No Substance use type: does not use Alcohol intake: never Alcohol intake frequency: does not drink Housing: house Household members: family (adult son) Current occupational status: employed (Merged with [employer] in [place] - retired twice, but continues to work), retired Does patient use chewing tobacco?: No Current residence: Apartment/Private Home Medications Home Medications Medication Instructions Recorded Confirmed Type colon health 1 cap PO 1200 #0 10/28/16 01/21/18 History Calcium 500 + D [Os Jerry-D 500] 1 tab PO DAILY 12/25/17 01/21/18 History Losartan [Cozaar] 50 mg PO BID 12/25/17 01/24/18 History [place]-3/Dha/Epa/Fish Oil [Fish Oil 1 each PO DAILY 12/25/17 01/21/18 History 1,000 mg Softgel] Potassium Chloride [K-DUR 20 mEq 1 tab PO TID #30 tab 01/14/18 01/24/18 Rx Tablet] Ergocalciferol (Vitamin D2) 50,000 unit PO NOTE 01/21/18 01/21/18 History [Vitamin D2] Acetaminophen [Tylenol] 650 mg PO QID tab 01/23/18 Rx PEG 3350 17gm PACKET [Miralax] 17 gm PO DAILY packet 01/23/18 01/24/18 Rx Digoxin [Lanoxin] 125 mcg PO DAILY #30 tab 01/30/18 Rx Furosemide [Lasix 40 mg Tab] 40 mg PO DAILY #30 tab 01/30/18 Rx Levothyroxine Tab [Synthroid] 88 mcg PO ACB #30 tab 01/30/18 Rx Metoprolol Tartrate [Lopressor] 200 mg PO BIDWM #60 tab 01/30/18 Rx PEG 3350 17gm PACKET [Miralax] 17 gm PO DAILY packet 01/30/18 Rx Verapamil SR [Calan Sr] 240 mg PO DAILY #30 tab 01/30/18 Rx Warfarin [Coumadin] 3 mg PO DAILY #30 tab 01/30/18 Rx Tramadol [Ultram] 50 mg PO Q6H PRN #40 tab 01/31/18 Rx Allergies Allergy/AdvReac Type Severity Reaction Status Date / Time Penicillins Allergy Mild Itching Verified 01/21/18 09:58 sulfamethoxazole Allergy Unknown Nausea Unverified 01/31/18 10:19 trimethoprim Allergy Unknown Nausea Unverified 01/31/18 10:19 amlodipine AdvReac Unknown Nausea and Verified 01/21/18 09:58 Vomiting Exam Vital signs: Temperature 97.9 F 01/24/18 15:59 Pulse Rate 92 01/24/18 16:35 Respiratory Rate 20 01/24/18 15:59 Blood Pressure 153/79 H 01/24/18 15:59 Pulse Oximetry 100 01/24/18 15:59 - Constitutional no acute distress, well nourished, cooperative - Routine HEENT Exam Head: Present: normocephalic ENT: Present: mucous membranes moist - Routine Neck Exam Absent: JVD, carotid bruit - Routine Chest/Breast/Axilla Exam Chest wall: Absent: tenderness - Routine Respiratory Exam Present: CTA bilaterally. Absent: rales, wheezes - Routine Cardiovascular Exam Present: no murmur, irregularly irregular - Routine Abdominal Exam Present: soft - Routine Extremities Exam Present: no edema - Routine Skin Exam Present: intact, dry, warm - Routine Neurological Exam Present: alert, oriented X3 - Routine Psychiatric Exam Present: normal affect, normal thought process Results 01/24/18 04:03 01/24/18 04:03 CBC 01/24/18 Range/Units 04:03 WBC 10.1 (4.5-11.0) T/MM3 RBC 2.77 L (4.00-5.20) M/MM3 Hgb 9.0 L (12-16) GM/DL Hct 27.5 L (36-46) % Plt Count 305 (130-400) T/MM3 Neut # (Auto) 6.5 (1.8-7.7) T/MM3 Lymph # (Auto) 2.3 (1-4.8) T/MM3 [place] # (Auto) 1.0 H (0-0.8) T/MM3 Eos # (Auto) 0.3 (0-0.5) T/MM3 Baso # (Auto) 0.0 (0-0.2) T/MM3 Comprehensive Metabolic Panel 01/24/18 Range/Units 04:03 Sodium 139 (134-144) MEQ/L Potassium 4.3 (3.6-5) MEQ/L Chloride 106 (98-107) MEQ/L Carbon Dioxide 23 (22-30) MEQ/L BUN 17.0 (7-17) MG/DL Creatinine 0.7 D (0.7-1.2) mg/dL Glucose 89 (65-110) MG/DL Calcium 8.7 (8.4-10.2) MG/DL Intake and Output 01/24/18 01/24/18 01/24/18 06:59 14:59 22:59 Intake Total 667 / 667 Balance 7 / 667 Intake: Oral 7 / 667 Other: Urine Appearance Clear Urine Color Yellow Yellow Straw Urine Odor Normal Normal Stool Color Brown Stool Consistency Loose Size of Bowel Movement Small # Voids 1 1 1 # Bowel Movements 1 Assessment and Plan - Assessment and Plan (1) Paroxysmal atrial fibrillation Status: Chronic Chronic: Rate control with Metoprolol 100mg po BID - Verapamil 180mg daily for rate control - Coumadin for stroke prevention - Lovenox 1mg/kg until INR therapeutic - EKG please (2) Nonrheumatic mitral valve insufficiency Status: Chronic (3) Non-rheumatic tricuspid valve insufficiency Status: Chronic (4) Essential (primary) hypertension Status: Chronic (5) S/P hip replacement Problem details: 01/21/18 - Dr. Ramon (right). Status: Acute - Assessment and Plan A FIB: Chronic: Rate control with Metoprolol 100mg po BID - Verapamil 180mg daily for rate control - Coumadin for stroke prevention - Lovenox 1mg/kg until INR therapeutic - EKG please Thank you for allowing us to participate in the care of this patient. Hospital Course Summary Disclaimer: The visit summary below is not to be considered part of the above Progress Note. Hospital Course: Plan - 01/24/18: Admit IRU for continued therapies and pain control per Dr. Mondragon for improvement in functional abilities and strength. A-fib with RVR (HR 140-150) on admission. Recent treatment in ICU with esmolol drip with improvement. Drip discontinued 01/22/18. Continue home medications - Cozaar 50mg BID and verapamil SR 180mg daily. Home metoprolol dose was increased from 50mg BID to 100mg BID by cardiology on . Will continue metoprolol 100mg BID. Consult Dr. Lopez for continued cardiac care. Continue to monitor closely on telemetry. History of hypothyroidism. Home Synthroid dose 112mcg daily. TSH on 01/22/18 was low at 0.17. Will decrease Synthroid dose to 88mcg daily and recommend rechecking TSH in 4-6 weeks. Hemoglobin slow trending down since surgery. Currently Hgb 9.0. Continue to monitor periodically. Patient asymptomatic without signs of acute bleeding. Lovenox for DVT prophylaxis and bridge therapy with Coumadin until INR therapeutic - currently INR 1.47. SCDs. Encourage incentive spirometry. Recheck labs on 01/26/18 to monitor blood counts, electrolytes and renal function. <Tej Lopez - Last Filed: 02/05/18 12:28> [facility] Patient Stated Medical History Cataracts Yes Cardiac Arrhythmia Yes: AFib Hypertension Yes Valvular Heart Disease Yes: stable tricuspid and mitral valve insuff per cardiology Sleep Apnea No Diabetes Mellitus Type 1 No Diabetes Mellitus Type 2 No Constipation No Hx Incontinence No Osteoarthritis Yes: right hip Other Musculoskeletal Yes: RA; osteopenia Blood Transfusions Yes: no known reactions Clinic Medical History (Last Reviewed 12/25/17 @ 13:32 by Vicente Ramon MD) Atrial fibrillation (Chronic Medical) Family History: Family History (Last Reviewed 12/25/17 @ 13:32 by Vicente Ramon MD) Mother Arthritis Heart failure Father Liver cancer Exam Vital signs: Temperature 97.0 F 01/31/18 07:20 Pulse Rate 138 H 01/31/18 09:54 Respiratory Rate 18 01/31/18 07:20 Blood Pressure 130/82 01/31/18 07:28 Pulse Oximetry 97 01/31/18 07:28 Results 01/31/18 04:13 01/31/18 04:13 Assessment and Plan - Attestation Attestation Narrative: 02/05/18 12:28 Recommendation After examining the patient I agree with the above assessment. I am involved in the formulation of the patient's plan of care. - Assessment and Plan (1) Paroxysmal atrial fibrillation Status: Chronic (2) Nonrheumatic mitral valve insufficiency Status: Chronic (3) Non-rheumatic tricuspid valve insufficiency Status: Chronic (4) Essential (primary) hypertension Status: Chronic (5) S/P hip replacement Problem details: 01/21/18 - Dr. Ramon (right). Status: Acute Hospital Course Summary Disclaimer: The visit summary below is not to be considered part of the above Progress Note.
[2018-01-24] MEDS: SENNOSIDES 8.6 MG TABLET PO SCH (21:07)
[2018-01-25] MEDS: LEVOTHYROXINE 88 MCG TABLET PO SCH (05:56)
[2018-01-25] MEDS: TRAMADOL 50 MG TABLET PO PRN (05:56)
--- NOTE | 2018-01-25 06:57 | Pharmacy Consult ---
Pharmacy Consult-Warfarin - Laboratory Information WARFARIN THERAPY: 01/24/18 01/25/18 04:03 04:25 INR 1.47 H 1.84 H 82yo F post left hip replacement. Developed significant Paroxysmal A. Fib with RVR. Has hx of this. And was on Warfarin therapy for this prior to procedure. Home dose reported as 5mg daily. INR has been slow getting to therapeutic level. Have been giving warfarin 6mg. Will repeat 6mg dose again today. On Enoxaparin 70mg SQ BID until we reach therapeutic INR. Thank you
[2018-01-25] MEDS: ACETAMINOPHEN 325 MG TABLET PO SCH ×4 (09:03→20:42)
[2018-01-25] MEDS: NOZIN NASAL SWAB NAS SCH ×4 (09:03→22:59)
[2018-01-25] MEDS: ENOXAPARIN 80 MG/0.8 ML INJECTION SQ SCH ×2 (09:05→20:43)
[2018-01-25] MEDS: LOSARTAN 50 MG TABLET PO SCH ×2 (09:05→20:42)
[2018-01-25] MEDS: POLYETHYL GLYCOL 3350 17gm PACKET PO SCH (09:05)
[2018-01-25] MEDS ORDERED: DIGOXIN 250 MCG TABLET PO ONE (10:34)
[2018-01-25] MEDS ORDERED: WARFARIN 6 MG TABLET PO SCH (12:00)
--- NOTE | 2018-01-25 14:19 | Progress Note ---
- Date 01/25/18 Subjective: Tika is seen today in follow up. She is feeling fairly well today. RN called today and reported patient was experiencing HR 140-150's when OOB. She was asx, but RN reports this persisted any time she is up. I did order a one time dig dose until I could assess her. Patient is feeling well- denies any c/o such as chest pain, SOA, or lightheadedness with standing. She reports "my heart rate was high, but I didn't feel a thing!" She denies any other c/o or concerns. Objective Vital signs: Temperature 97.6 F 01/25/18 07:22 Pulse Rate 105 H 01/25/18 10:40 Respiratory Rate 16 01/25/18 07:22 Blood Pressure 158/90 H 01/25/18 07:22 Pulse Oximetry 93 01/25/18 07:22 Rhythm: Atrial Fibrillation with Normal Ventricular Rate, Atrial Fibrillation with RVR Height/Weight/BMI: Height 1.65 m Weight 69.8 kg Body Mass Index 29.6 - Constitutional Present: no acute distress, obese, cooperative - Routine HEENT Exam Head: Present: normocephalic, atraumatic Eye: Present: EOMI, PERRL ENT: Present: mucous membranes moist - Routine Respiratory Exam Present: CTA bilaterally. Absent: rales, rhonchi, wheezes - Routine Cardiovascular Exam Present: S1, S2, irregular rhythm, irregularly irregular Comments: HR is controlled during exam. - Routine Abdominal Exam Present: soft, normoactive bowel sounds, non distended - Routine Extremities Exam Present: no edema, non tender - Routine Musculoskeletal Exam Musculoskeletal: Present: normal strength, moving extremities well, limited range of motion - Routine Skin Exam Present: intact, dry, warm - Routine Neurological Exam Present: alert, oriented X3 - Routine Psychiatric Exam Present: normal affect, cooperative Results - Labs CBC & Chem 7: 01/24/18 04:03 01/24/18 04:03 Assessment and Plan (1) Paroxysmal atrial fibrillation Current visit: Yes Status: Chronic (2) Nonrheumatic mitral valve insufficiency Current visit: No Status: Chronic (3) Non-rheumatic tricuspid valve insufficiency Current visit: No Status: Chronic (4) S/P hip replacement Problem details: 01/21/18 - Dr. Ramon (right). Current visit: Yes Status: Acute Assessment and Plan: Assessment: S/P right hip arthroplasty - 01/21/18, Dr. Ramon. Generalized debility and gait instability secondary to recent surgery. Paroxysmal a-rib with RVR. Acute blood loss anemia. Hyperthyroidism - history of hypothyroidism currently on Synthroid. Hypertension. Nonrheumatic mitral and tricuspid insufficiency. Chronic anticoagulation on warfarin. Osteoarthritis. Cataracts. History of hypokalemia- resolved. History of cardioversion - 06/20/15, Dr. Lopez. Plan - 01/25/18: Patient is improving- participating in therapy. She continues to struggle with an elevated HR- need to reassess labs in AM- anemia may be a part of the uncontrolled HR. Provided Dig x 1 dose only. Noted BB dosing was increased. Give Verapamil IR this evening, and then increase dose of SR to 240mg tomorrow AM. Continue Warfarin/Lovenox. (Consider change to NOAC?). Some mild hyperthyroid- Synthroid decreased. Recheck TSH in a few weeks. Monitor electrolytes. Overall, she is doing well. DVT Prophylaxis: Lovenox Resuscitation Status: Do Not Resuscitate - Physician Narrative Narrative: Date: 01/25/18 Time: 1415 Hospital Course Summary Disclaimer: The visit summary below is not to be considered part of the above Progress Note. Hospital Course: Plan - 01/24/18: Admit IRU for continued therapies and pain control per Dr. Mondragon for improvement in functional abilities and strength. A-fib with RVR (HR 140-150) on admission. Recent treatment in ICU with esmolol drip with improvement. Drip discontinued 01/22/18. Continue home medications - Cozaar 50mg BID and verapamil SR 180mg daily. Home metoprolol dose was increased from 50mg BID to 100mg BID by cardiology on . Will continue metoprolol 100mg BID. Consult Dr. Lopez for continued cardiac care. Continue to monitor closely on telemetry. History of hypothyroidism. Home Synthroid dose 112mcg daily. TSH on 01/22/18 was low at 0.17. Will decrease Synthroid dose to 88mcg daily and recommend rechecking TSH in 4-6 weeks. Hemoglobin slow trending down since surgery. Currently Hgb 9.0. Continue to monitor periodically. Patient asymptomatic without signs of acute bleeding. Lovenox for DVT prophylaxis and bridge therapy with Coumadin until INR therapeutic - currently INR 1.47. SCDs. Encourage incentive spirometry. Recheck labs on 01/26/18 to monitor blood counts, electrolytes and renal function. Plan - 01/25/18: Patient is improving- participating in therapy. She continues to struggle with an elevated HR- need to reassess labs in AM- anemia may be a part of the uncontrolled HR. Provided Dig x 1 dose only. Noted BB dosing was increased. Give Verapamil IR this evening, and then increase dose of SR to 240mg tomorrow AM. Continue Warfarin/Lovenox. (Consider change to NOAC?). Some mild hyperthyroid- Synthroid decreased. Recheck TSH in a few weeks. Monitor electrolytes. Overall, she is doing well.
[2018-01-25] MEDS: SENNOSIDES 8.6 MG TABLET PO SCH (20:42)
[2018-01-25] MEDS: ONDANSETRON 4 MG/2 ML INJECTION IVP PRN (22:45)
[2018-01-26] MEDS: LEVOTHYROXINE 88 MCG TABLET PO SCH ×2 (04:50→07:28)
[2018-01-26] MEDS: NOZIN NASAL SWAB NAS SCH ×4 (04:50→21:28)
[2018-01-26] MEDS: TRAMADOL 50 MG TABLET PO PRN (05:45)
--- NOTE | 2018-01-26 07:58 | Pharmacy Consult ---
Pharmacy Consult-Warfarin - Laboratory Information WARFARIN THERAPY: 01/24/18 01/25/18 01/26/18 04:03 04:25 06:36 INR 1.47 H 1.84 H 2.00 H 82yo F post left hip replacement. Developed significant Paroxysmal A. Fib with RVR. Has hx of this. And was on Warfarin therapy for this prior to procedure. Home dose reported as 5mg daily. INR has been slow getting to therapeutic level. Have been giving warfarin 6mg. Will repeat 6mg dose again today. On Enoxaparin 70mg SQ BID until we reach therapeutic INR. Thank you
[2018-01-26] MEDS: Verapamil SR 120 MG TABLET E.R. PO SCH (08:59)
[2018-01-26] MEDS: LOSARTAN 50 MG TABLET PO SCH ×2 (09:00→20:03)
[2018-01-26] MEDS: ENOXAPARIN 80 MG/0.8 ML INJECTION SQ SCH ×2 (09:00→21:27)
[2018-01-26] MEDS: ACETAMINOPHEN 325 MG TABLET PO SCH ×4 (09:00→20:03)
[2018-01-26] MEDS: POLYETHYL GLYCOL 3350 17gm PACKET PO SCH (09:01)
[2018-01-26] MEDS ORDERED: DIGOXIN 250 MCG TABLET PO ONE (10:34)
[2018-01-26] MEDS ORDERED: WARFARIN 6 MG TABLET PO SCH (12:00)
[2018-01-26] MEDS: ONDANSETRON 4 MG/2 ML INJECTION IVP PRN ×2 (14:39→19:50)
--- NOTE | 2018-01-26 14:48 | Cardiology Progress Note ---
<Lynette Caba L - Last Filed: 01/26/18 14:59> Subjective Principal diagnosis: hip fx, chronic afib w/RVR episode post op Interval history: Pt reports feeling nauseated and recently received some antinausea medication. She denies dyspnea, chest pain or dizziness. She is unaware her heart is beating rapidly. Exam Vital signs: Temperature 96.8 F 01/26/18 08:00 Pulse Rate 106 H 01/26/18 08:00 Respiratory Rate 16 01/26/18 08:00 Blood Pressure 165/88 H 01/26/18 08:00 Pulse Oximetry 92 01/26/18 08:00 Inpatient Medications: Generic Name Dose Route Start Last Admin Trade Name Freq PRN Reason Stop Dose Admin Acetaminophen 650 mg 01/23/18 17:00 01/26/18 14:39 Tylenol PO Not Given QID YAKOV Diphenhydramine HCl 25 mg 01/23/18 16:43 Benadryl PO Q6H PRN Itching Diphenhydramine HCl 25 mg 01/23/18 16:43 Benadryl IVP Q6HR PRN Itching Docusate Sodium 100 mg 01/24/18 09:26 Colace PO BID PRN Enoxaparin Sodium 70 mg 01/23/18 21:00 01/26/18 09:00 Lovenox SQ 70 mg BID YAKOV Administration Isopropyl Alcohol 1 each 01/23/18 22:00 01/26/18 14:39 Nozin Nasal Swab GISELL 1 each 0600,1400,2200 YAKOV Administration Levothyroxine Sodium 88 mcg 01/25/18 06:30 01/26/18 07:28 Synthroid PO Not Given ACB YAKOV Lorazepam 1 mg 01/23/18 16:43 Ativan PO HS PRN Sleep Losartan Potassium 50 mg 01/23/18 21:00 01/26/18 09:00 Cozaar PO 50 mg BID YAKOV Administration Metoprolol Tartrate 100 mg 01/24/18 17:30 01/26/18 09:00 Lopressor PO 100 mg BIDWM YAKOV Administration Probiotic Caps - 1 each 01/26/18 12:00 01/26/18 12:08 Lactobacillus PO 1 each DAILY@1200 YAKOV Administration Ondansetron HCl 4 mg 01/23/18 16:43 01/26/18 14:39 Zofran IVP 4 mg Q4H PRN Administration Nausea &/or vomiting Polyethylene Glycol 17 gm 01/24/18 09:00 01/26/18 09:01 Miralax PO 17 gm DAILY [facility] Administration Potassium Chloride 20 meq 01/23/18 17:30 01/26/18 12:08 K-Dur 20 Meq Tablet PO 20 meq TIDWM YAKOV Administration Senna 17.2 mg 01/23/18 21:00 01/25/18 20:42 Senna Lax PO 17.2 mg HS YAKOV Administration Senna 17.2 mg 01/23/18 16:43 Senna Lax PO DAILY PRN Constipation Tramadol HCl 50 - 100 mg 01/23/18 16:43 01/26/18 05:45 Ultram PO 50 mg Q6H PRN Administration Pain Verapamil HCl 240 mg 01/26/18 09:00 01/26/18 08:59 Calan Sr PO 240 mg DAILY [facility] Administration Warfarin Sodium 0 01/24/18 09:15 Coumadin Protocol NOTE YAKOV Discontinued Medications Generic Name Dose Route Start Last Admin Trade Name Freq PRN Reason Stop Dose Admin Bisacodyl 10 mg 01/23/18 20:00 01/23/18 20:41 Dulcolax RECTALLY 01/23/18 20:01 Not Given DAILY [facility] Digoxin 250 mcg 01/26/18 10:34 Lanoxin PO 01/26/18 10:35 ONE TIME ONE Digoxin 250 mcg 01/25/18 10:34 01/25/18 10:40 Lanoxin PO 01/25/18 10:35 250 mcg ONE TIME ONE Administration Docusate Sodium 100 mg 01/23/18 21:00 01/24/18 08:15 Colace PO 100 mg BID [facility] Administration Levothyroxine Sodium 112 mcg 01/24/18 06:30 01/24/18 06:14 Synthroid PO Not Given ACB [facility] Metoprolol Tartrate 50 mg 01/23/18 17:30 01/24/18 08:19 Lopressor PO 50 mg BIDWM [facility] Administration Metoprolol Tartrate 50 mg 01/24/18 08:51 01/24/18 08:57 Lopressor PO 01/24/18 08:52 50 mg O ONE Administration Probiotic Caps - 1 each 01/25/18 13:00 01/25/18 12:33 Lactobacillus PO 1 each DAILY@1300 [facility] Administration Pharmacy Consult 1 each 01/23/18 16:43 Pharmacy Consult - Fall Risk XX 01/23/18 16:44 ONE TIME ONE Verapamil HCl 180 mg 01/24/18 09:00 01/25/18 09:05 Calan Sr PO 180 mg DAILY YAKOV Administration Verapamil HCl 240 mg 01/25/18 14:15 01/25/18 18:21 Calan Sr PO Not Given DAILY YAKOV Verapamil HCl 80 mg 01/25/18 17:00 01/25/18 17:47 Calan PO 01/25/18 17:01 80 mg O ONE Administration Warfarin Sodium 1 each 01/24/18 08:55 01/25/18 08:36 Pharmacy Consult - Warfarin MC 01/24/18 08:56 1 each O ONE Administration Warfarin Sodium 6 mg 01/24/18 12:00 01/24/18 12:24 Coumadin PO 01/24/18 12:30 6 mg NOON YAKOV Administration Warfarin Sodium 6 mg 01/25/18 12:00 01/25/18 12:31 Coumadin PO 01/25/18 13:00 6 mg NOON YAKOV Administration Warfarin Sodium 6 mg 01/26/18 12:00 01/26/18 12:08 Coumadin PO 01/26/18 13:00 6 mg NOON YAKOV Administration - Constitutional mild distress - Routine HEENT Exam Head: Present: normocephalic, atraumatic Eye: Present: EOMI ENT: Present: mucous membranes moist - Routine Neck Exam Absent: JVD, carotid bruit - Routine Respiratory Exam Present: CTA bilaterally - Routine Cardiovascular Exam Present: tachycardia, irregular rhythm - Routine Abdominal Exam Present: soft, normoactive bowel sounds - Routine Skin Exam Present: intact - Routine Neurological Exam Present: alert, oriented X3 - Routine Psychiatric Exam Present: normal affect, normal thought process, cooperative Results 01/26/18 06:36 01/26/18 06:36 CBC 01/26/18 Range/Units 06:36 WBC 10.0 (4.5-11.0) T/MM3 RBC 2.98 L (4.00-5.20) M/MM3 Hgb 9.6 L (12-16) GM/DL Hct 29.8 L (36-46) % Plt Count 355 (130-400) T/MM3 Neut # (Auto) 5.9 (1.8-7.7) T/MM3 Lymph # (Auto) 2.8 (1-4.8) T/MM3 Garza # (Auto) 0.8 (0-0.8) T/MM3 Eos # (Auto) 0.3 (0-0.5) T/MM3 Baso # (Auto) 0.1 (0-0.2) T/MM3 Comprehensive Metabolic Panel 01/26/18 Range/Units 06:36 Sodium 139 (134-144) MEQ/L Potassium 4.5 (3.6-5) MEQ/L Chloride 104 (98-107) MEQ/L Carbon Dioxide 22 (22-30) MEQ/L BUN 13.0 (7-17) MG/DL Creatinine 0.7 (0.7-1.2) mg/dL Glucose 97 (65-110) MG/DL Calcium 8.9 (8.4-10.2) MG/DL Intake and Output 01/25/18 01/26/18 01/26/18 21:59 06:59 14:59 Intake Total 240 / 240 Balance 240 / 240 Intake: Oral 240 / 240 Other: Urine Appearance Cloudy Urine Color Yellow Urine Odor Normal Stool Color Yellow Stool Consistency Soft Formed Size of Bowel Movement Small # Voids 1 # Bowel Movements 1 Laboratory Results - last 24 hr 01/26/18 01/26/18 01/26/18 06:36 06:36 06:36 WBC 10.0 RBC 2.98 L Hgb 9.6 L Hct 29.8 L MCV 100.0 MCH 32.2 MCHC 32.2 RDW Std Deviation 47.0 Plt Count 355 MPV 10.2 Immature Gran % (Auto) 1.6 H Neut % (Auto) 58.9 Lymph % (Auto) 28.0 Garza % (Auto) 8.2 Eos % (Auto) 2.8 Baso % (Auto) 0.5 Neut # (Auto) 5.9 Lymph # (Auto) 2.8 Garza # (Auto) 0.8 Eos # (Auto) 0.3 Baso # (Auto) 0.1 Abs Immat Gran (auto) 0.16 H INR 2.00 H Turbidity < 20 Sodium 139 Potassium 4.5 Chloride 104 Carbon Dioxide 22 Anion Gap 13 BUN 13.0 Creatinine 0.7 GFR Calculation 80 BUN/Creatinine Ratio 19 Glucose 97 Calculated Osmolality 268 Calcium 8.9 Icterus Index < 2 Specimen Hemolysis 91 H Assessment and Plan - Assessment and Plan (1) Paroxysmal atrial fibrillation Status: Chronic (2) Nonrheumatic mitral valve insufficiency Status: Chronic (3) Non-rheumatic tricuspid valve insufficiency Status: Chronic (4) Essential (primary) hypertension Status: Chronic (5) S/P hip replacement Problem details: 01/21/18 - Dr. Ramon (right). Status: Acute - Assessment and Plan 01/24/18 A FIB: Chronic: Rate control with Metoprolol 100mg po BID - Verapamil 180mg daily for rate control - Coumadin for stroke prevention - Lovenox 1mg/kg until INR therapeutic - EKG please 01/26/18 Chronic afib, pt having runs of rvr. Previously rate controlled prior to transfer to IRU on metoprolol 100mg bid. Since transfer tele shows AFib rates 93-167. Vitals report pluse 70-90's. Verapamil 180mg added 2 days ago. Verapamil increased to 240mg today per attending, agree with plan. Monitor bp with dosage increases. Warfarin therapy for stroke risk reduction, managed per pharmacy. Would anticipate elevated rates with increased activity during PT, will follow along. Hospital Course Summary Disclaimer: The visit summary below is not to be considered part of the above Progress Note. Hospital Course: Plan - 01/24/18: Admit IRU for continued therapies and pain control per Dr. Mondragon for improvement in functional abilities and strength. A-fib with RVR (HR 140-150) on admission. Recent treatment in ICU with esmolol drip with improvement. Drip discontinued 01/22/18. Continue home medications - Cozaar 50mg BID and verapamil SR 180mg daily. Home metoprolol dose was increased from 50mg BID to 100mg BID by cardiology on . Will continue metoprolol 100mg BID. Consult Dr. Lopez for continued cardiac care. Continue to monitor closely on telemetry. History of hypothyroidism. Home Synthroid dose 112mcg daily. TSH on 01/22/18 was low at 0.17. Will decrease Synthroid dose to 88mcg daily and recommend rechecking TSH in 4-6 weeks. Hemoglobin slow trending down since surgery. Currently Hgb 9.0. Continue to monitor periodically. Patient asymptomatic without signs of acute bleeding. Lovenox for DVT prophylaxis and bridge therapy with Coumadin until INR therapeutic - currently INR 1.47. SCDs. Encourage incentive spirometry. Recheck labs on 01/26/18 to monitor blood counts, electrolytes and renal function. Plan - 01/25/18: Patient is improving- participating in therapy. She continues to struggle with an elevated HR- need to reassess labs in AM- anemia may be a part of the uncontrolled HR. Provided Dig x 1 dose only. Noted BB dosing was increased. Give Verapamil IR this evening, and then increase dose of SR to 240mg tomorrow AM. Continue Warfarin/Lovenox. (Consider change to NOAC?). Some mild hyperthyroid- Synthroid decreased. Recheck TSH in a few weeks. Monitor electrolytes. Overall, she is doing well. <Tej Lopez - Last Filed: 01/31/18 17:32> Exam Vital signs: Temperature 97.0 F 01/31/18 07:20 Pulse Rate 138 H 01/31/18 09:54 Respiratory Rate 18 01/31/18 07:20 Blood Pressure 130/82 01/31/18 07:28 Pulse Oximetry 97 01/31/18 07:28 Inpatient Medications: Discontinued Medications Generic Name Dose Route Start Last Admin Trade Name Freq PRN Reason Stop Dose Admin Acetaminophen 650 mg 01/23/18 17:00 01/31/18 08:17 Tylenol PO 650 mg QID YAKOV Administration Bisacodyl 10 mg 01/23/18 20:00 01/23/18 20:41 Dulcolax RECTALLY 01/23/18 20:01 Not Given DAILY YAKOV Digoxin 250 mcg 01/26/18 10:34 Lanoxin PO 01/26/18 10:35 ONE TIME ONE Digoxin 250 mcg 01/25/18 10:34 01/25/18 10:40 Lanoxin PO 01/25/18 10:35 250 mcg ONE TIME ONE Administration Digoxin 125 mcg 01/28/18 14:30 01/31/18 08:14 Lanoxin PO 125 mcg DAILY YAKOV Administration Digoxin 125 mcg 01/30/18 09:52 01/30/18 09:58 Lanoxin PO 01/30/18 09:53 125 mcg O ONE Administration Diphenhydramine HCl 25 mg 01/23/18 16:43 Benadryl PO Q6H PRN Itching Diphenhydramine HCl 25 mg 01/23/18 16:43 Benadryl IVP Q6HR PRN Itching Docusate Sodium 100 mg 01/23/18 21:00 01/24/18 08:15 Colace PO 100 mg BID YAKOV Administration Docusate Sodium 100 mg 01/24/18 09:26 Colace PO BID PRN Enoxaparin Sodium 70 mg 01/23/18 21:00 01/27/18 08:36 Lovenox SQ 70 mg BID YAKOV Administration Furosemide 40 mg 01/30/18 15:45 01/31/18 08:17 Lasix 40 Mg Tab PO 40 mg DAILY YAKOV Administration Isopropyl Alcohol 1 each 01/23/18 22:00 01/31/18 08:07 Nozin Nasal Swab GISELL Not Given 0600,1400,2200 YAKOV Levothyroxine Sodium 112 mcg 01/24/18 06:30 01/24/18 06:14 Synthroid PO Not Given ACB YAKOV Levothyroxine Sodium 88 mcg 01/25/18 06:30 01/31/18 05:30 Synthroid PO 88 mcg ACB YAKOV Administration Lorazepam 1 mg 01/23/18 16:43 Ativan PO HS PRN Sleep Losartan Potassium 50 mg 01/23/18 21:00 01/31/18 08:14 Cozaar PO 50 mg BID YAKOV Administration Metoprolol Tartrate 50 mg 01/23/18 17:30 01/24/18 08:19 Lopressor PO 50 mg BIDWM YAKOV Administration Metoprolol Tartrate 100 mg 01/24/18 17:30 01/27/18 08:35 Lopressor PO 100 mg BIDWM YAKOV Administration Metoprolol Tartrate 50 mg 01/24/18 08:51 01/24/18 08:57 Lopressor PO 01/24/18 08:52 50 mg O ONE Administration Metoprolol Tartrate 2.5 mg 01/27/18 10:21 01/27/18 10:40 Lopressor IVP 01/27/18 10:22 2.5 mg ONCE ONE Administration Metoprolol Tartrate 150 mg 01/27/18 17:30 01/27/18 17:53 Lopressor PO Not Given BIDWM YAKOV Metoprolol Tartrate 200 mg 01/27/18 17:45 01/31/18 08:13 Lopressor PO 200 mg BIDWM YAKOV Administration Probiotic Caps - 1 each 01/25/18 13:00 01/25/18 12:33 Lactobacillus PO 1 each DAILY@1300 YAKOV Administration Probiotic Caps - 1 each 01/26/18 12:00 01/30/18 12:18 Lactobacillus PO 1 each DAILY@1200 YAKOV Administration Ondansetron HCl 4 mg 01/23/18 16:43 01/30/18 18:18 Zofran IVP 4 mg Q4H PRN Administration Nausea &/or vomiting Pharmacy Consult 1 each 01/23/18 16:43 Pharmacy Consult - Fall Risk XX 01/23/18 16:44 ONE TIME ONE Polyethylene Glycol 17 gm 01/24/18 09:00 01/31/18 09:56 Miralax PO Not Given DAILY YAKOV Potassium Chloride 20 meq 01/23/18 17:30 01/31/18 08:14 K-Dur 20 Meq Tablet PO 20 meq TIDWM YAKOV Administration Potassium Chloride 20 meq 01/30/18 15:35 01/30/18 16:02 K-Dur 20 Meq Tablet PO 01/30/18 15:36 20 meq O ONE Administration Potassium Chloride 20 meq 01/31/18 08:00 K-Dur 20 Meq Tablet PO WB YAKOV Senna 17.2 mg 01/23/18 21:00 01/30/18 20:22 Senna Lax PO Not Given HS YAKOV Senna 17.2 mg 01/23/18 16:43 Senna Lax PO DAILY PRN Constipation Sodium Chloride 10 ml 01/27/18 20:39 01/30/18 20:23 Iv Flush IV 10 ml PRN PRN Administration Flushing Tramadol HCl 50 - 100 mg 01/23/18 16:43 01/31/18 08:26 Ultram PO 50 mg Q6H PRN Administration Pain Verapamil HCl 180 mg 01/24/18 09:00 01/25/18 09:05 Calan Sr PO 180 mg DAILY YAKOV Administration Verapamil HCl 240 mg 01/25/18 14:15 01/25/18 18:21 Calan Sr PO Not Given DAILY YAKOV Verapamil HCl 80 mg 01/25/18 17:00 01/25/18 17:47 Calan PO 01/25/18 17:01 80 mg O ONE Administration Verapamil HCl 240 mg 01/26/18 09:00 01/31/18 08:16 Calan Sr PO 240 mg DAILY YAKOV Administration Warfarin Sodium 1 each 01/24/18 08:55 01/25/18 08:36 Pharmacy Consult - Warfarin MC 01/24/18 08:56 1 each O ONE Administration Warfarin Sodium 0 01/24/18 09:15 Coumadin Protocol [facility] Warfarin Sodium 6 mg 01/24/18 12:00 01/24/18 12:24 Coumadin PO 01/24/18 12:30 6 mg NOON YAKOV Administration Warfarin Sodium 6 mg 01/25/18 12:00 01/25/18 12:31 Coumadin PO 01/25/18 13:00 6 mg NOON YAKOV Administration Warfarin Sodium 6 mg 01/26/18 12:00 01/26/18 12:08 Coumadin PO 01/26/18 13:00 6 mg NOON YAKOV Administration Warfarin Sodium 5 mg 01/27/18 12:00 01/27/18 12:24 Coumadin PO 01/27/18 12:30 5 mg NOON YAKOV Administration Warfarin Sodium 2.5 mg 01/28/18 12:00 01/28/18 12:26 Coumadin PO 01/28/18 12:30 2.5 mg NOON YAKOV Administration Warfarin Sodium 3 mg 01/30/18 12:00 01/30/18 12:18 Coumadin PO 01/30/18 12:30 3 mg NOON YAKOV Administration Warfarin Sodium 4 mg 01/31/18 12:00 Coumadin PO 01/31/18 12:15 NOON YAKOV Results 01/31/18 04:13 01/31/18 04:13 Cardiac Enzymes 01/31/18 Range/Units 04:13 AST 25 (14-36) U/L CBC 01/30/18 01/31/18 Range/Units 18:40 04:13 WBC 9.3 (4.5-11.0) T/MM3 RBC 2.73 L (4.00-5.20) M/MM3 Hgb 9.4 L 8.9 L (12-16) GM/DL Hct 27.6 L (36-46) % Plt Count 398 (130-400) T/MM3 Neut # (Auto) 6.1 (1.8-7.7) T/MM3 Lymph # (Auto) 2.0 (1-4.8) T/MM3 Garza # (Auto) 0.7 (0-0.8) T/MM3 Eos # (Auto) 0.2 (0-0.5) T/MM3 Baso # (Auto) 0.1 (0-0.2) T/MM3 Comprehensive Metabolic Panel 01/31/18 Range/Units 04:13 Sodium 137 (134-144) MEQ/L Potassium 4.0 (3.6-5) MEQ/L Chloride 101 (98-107) MEQ/L Carbon Dioxide 23 (22-30) MEQ/L BUN 16.0 (7-17) MG/DL Creatinine 0.8 D (0.7-1.2) mg/dL Glucose 94 (65-110) MG/DL Calcium 9.2 (8.4-10.2) MG/DL AST 25 (14-36) U/L ALT 21 (1-35) U/L Alkaline Phosphatase 97 (38-126) U/L Total Protein 6.7 (6.3-8.2) g/dL Albumin 3.8 (3.5-5.0) g/dL Intake and Output 01/31/18 01/31/18 01/31/18 06:59 14:59 22:59 Intake Total 840 / 840 Balance 840 / 840 Intake: Oral 840 / 840 Other: Urine Appearance Clear Urine Color Yellow Urine Odor Normal # Voids 1 Assessment and Plan - Assessment and Plan (1) Paroxysmal atrial fibrillation Status: Chronic (2) Nonrheumatic mitral valve insufficiency Status: Chronic (3) Non-rheumatic tricuspid valve insufficiency Status: Chronic (4) Essential (primary) hypertension Status: Chronic (5) S/P hip replacement Problem details: 01/21/18 - Dr. Ramon (right). Status: Acute - Attestation Attestation Narrative: 01/31/18 17:32 Recommendation I agree with the above and I am involved in the formulation of the patient's plan of care. Hospital Course Summary Disclaimer: The visit summary below is not to be considered part of the above Progress Note.
[2018-01-26] MEDS: SENNOSIDES 8.6 MG TABLET PO SCH (20:03)
[2018-01-27] MEDS: LEVOTHYROXINE 88 MCG TABLET PO SCH (05:52)
[2018-01-27] MEDS: Verapamil SR 120 MG TABLET E.R. PO SCH (08:34)
[2018-01-27] MEDS: TRAMADOL 50 MG TABLET PO PRN (08:34)
[2018-01-27] MEDS: LOSARTAN 50 MG TABLET PO SCH ×2 (08:35→20:47)
[2018-01-27] MEDS: ENOXAPARIN 80 MG/0.8 ML INJECTION SQ SCH (08:36)
--- NOTE | 2018-01-27 08:39 | Pharmacy Consult ---
Pharmacy Consult-Warfarin - Laboratory Information 01/24/18 01/25/18 01/26/18 04:03 04:25 06:36 INR 1.47 H 1.84 H 2.00 H 01/27/18 08:06 INR 2.4 - Consult Information INR in target range (increased 0.4). Warfarin 5mg ordered for today. Thank you.
[2018-01-27] MEDS: NOZIN NASAL SWAB NAS SCH ×3 (08:48→20:42)
[2018-01-27] MEDS: ACETAMINOPHEN 325 MG TABLET PO SCH ×4 (08:49→20:40)
[2018-01-27] MEDS: POLYETHYL GLYCOL 3350 17gm PACKET PO SCH (08:50)
[2018-01-27] MEDS ORDERED: METOPROLOL 5mg/5ml INJECTION IVP ONE (10:21)
--- NOTE | 2018-01-27 10:29 | IRU Progress Note ---
- Subjective/Serverity of Illness Date: 01/27/18 Ms. Webb was interviewed and examined in her room. She currently is on contact isolation due to loose stools. C. difficile has not yet been recovered. She reports that she feels very tired. She does not have energy to do much. She actually denies that she feels palpitations and denies shortness of breath or chest pain. Appetite is reasonable. She has been seen by cardiology. Continues to have rapid ventricular response intermittently with her atrial fibrillation. Her INR is now therapeutic at 2.4 so we will discontinue the enoxaparin. Brief therapy update: For occupational therapy she is contact-guard assist for toilet transfers. Bed/chair/wheelchair transfers are contact guard assist as well. For physical therapy she is moderate assistance for bed/chair/wheelchair transfers. She was able to walk 144 feet with a front-wheeled walker with standby assist of 1 person. Update on medical issues were actively monitoring and managin. s/p total hip arthroplasty: She continues to have discomfort in the hip as anticipated. 2. Paroxysmal atrial fibrillation with episodes of rapid ventricular response: She is followed by cardiology. She is on metoprolol 100 mg twice daily and verapamil has recently been increased. 3. Benign essential hypertension: Her blood pressures remain elevated at times it 140/100. Other times they are 130 systolic. No evidence of hypotension. Exam Vital Signs: Temperature 98.7 F 01/27/18 10:24 Pulse Rate 141 H 01/27/18 10:24 Respiratory Rate 16 01/27/18 10:24 Blood Pressure 139/67 01/27/18 10:24 Pulse Oximetry 99 01/27/18 10:24 Height/Weight/BMI: Height 1.65 m Weight 69.8 kg Body Mass Index 29.6 - Constitutional Present: mild distress (she feels fatigued today.), well nourished, well developed, cooperative - Routine HEENT Exam Head: Present: normocephalic Eye: Present: EOMI ENT: Present: mucous membranes moist, oropharynx clear - Routine Neck Exam Present: supple - Routine Respiratory Exam Present: CTA bilaterally. Absent: dyspnea, respiratory distress, wheezes, crackles - Routine Cardiovascular Exam Present: S1, S2, irregularly irregular. Absent: murmur - Routine Abdominal Exam Present: soft, normoactive bowel sounds, non distended. Absent: tenderness - Routine Extremities Exam Present: edema (trace edema right lower extremity.) - Routine Skin Exam Present: dry, warm - Routine Neurological Exam Present: alert, oriented X3, CN II-XII intact - Routine Psychiatric Exam Present: normal affect Results IRU - Labs Labs: I have reviewed the telemetry strips indicating occasional episodes of rapid ventricular response. Looks like she has chronic atrial fibrillation. Also reviewed labs. IRU A/P (1) S/P hip replacement Qualifiers: Laterality: left Qualified Code(s): Z96.642 - Presence of left artificial hip joint Problem details: 01/21/18 - Dr. Ramon (right). Current visit: Yes Status: Acute Pain reasonably well controlled. However she does report significant fatigue with activity. She denies any chest pain or overt shortness of breath. (2) Paroxysmal atrial fibrillation Current visit: Yes Status: Chronic Continues to have episodes of rapid ventricular response. Cardiology has seen. She is on metoprolol her milligrams twice daily and verapamil has been increased. (3) Nonrheumatic mitral valve insufficiency Current visit: No Status: Chronic (4) Non-rheumatic tricuspid valve insufficiency Current visit: No Status: Chronic (5) Essential (primary) hypertension Current visit: No Status: Chronic Overall blood pressures remain a bit high at times. DVT Prophylaxis: Lovenox Resuscitation Status: Do Not Resuscitate - Course Hospital Course: Hoang Mondragon MD: 01/24/18 11:27 Getting started with therapy and appears to be participatory. Reports pain adequately controlled in the hip. Atrial fib with occasional responses up to 133, asymptomatic. Denies dyspnea. 01/27/18 10:31 She does develop some loose stools. C. difficile is pending. Continues to have rapid ventricular response with her atrial fibrillation. Verapamil has been increased area Blood pressures a bit elevated. Complains of fatigue but no dyspnea. - Interventions to Obtain Goals PT Treatment Plan: Balance/Proprioception, Functional Activities, Manual Therapy , Patient/Family Education, Therapeutic Exercise OT Treatment Plan: ADL (Basic Care), Balance Training, IADL, Pt./Family Education, Ther. Exercise for ADL Goals Progress/Modifications: At the present time she complains of significant fatigue with activity. It is possible this is related to her rapid ventricular response although could also be related to the metoprolol 100 mg twice daily plus verapamil. In any event, her lungs remain clear and it is now felt she has heart failure at the present time. She denies any nausea or vomiting. She denies any chest pain. She is cooperative with therapy but does have fatigue. We will monitor carefully. In addition she has developed some loose stools. C. difficile is pending but she is in contact isolation until this is clarified.
--- NOTE | 2018-01-27 10:38 | Progress Note ---
- Date 01/27/18 Subjective: Tika was resting in her recliner. She feels tired, and has been told that her HR is high. She gets fatigued and tired with exertion as well. She denies shortness of breath or chest pain. She has had some laxatives and is now having diarrhea. Yesterday she was nauseated after lunch and didn't eat supper but she was able to eat breakfast this am without problems. She has bruising to her RLE. Objective Vital signs: Temperature 98.7 F 01/27/18 10:24 Pulse Rate 141 H 01/27/18 10:24 Respiratory Rate 16 01/27/18 10:24 Blood Pressure 139/67 01/27/18 10:24 Pulse Oximetry 99 01/27/18 10:24 Rhythm: Atrial Fibrillation with RVR Height/Weight/BMI: Height 1.65 m Weight 69.8 kg Body Mass Index 29.6 - Constitutional Present: no acute distress, well nourished, well developed - Routine HEENT Exam Head: Present: normocephalic Eye: Absent: conjunctival icterus, scleral injection - Routine Respiratory Exam Present: CTA bilaterally - Routine Cardiovascular Exam Present: tachycardia (rate 160 during exam), irregularly irregular - Routine Abdominal Exam Present: soft, normoactive bowel sounds, non distended, non tender - Routine Extremities Exam Present: edema (RLE), pulses intact. Absent: calf tenderness - Routine Skin Exam Present: dry, pallor, warm, ecchymosis (RLE purple discoloration) - Routine Neurological Exam Present: alert, oriented X3 - Routine Psychiatric Exam Present: normal affect, normal thought process, cooperative Results - Labs CBC & Chem 7: 01/26/18 06:36 01/26/18 06:36 Assessment and Plan (1) Paroxysmal atrial fibrillation Current visit: Yes Status: Chronic (2) Nonrheumatic mitral valve insufficiency Current visit: No Status: Chronic (3) Non-rheumatic tricuspid valve insufficiency Current visit: No Status: Chronic (4) S/P hip replacement Problem details: 01/21/18 - Dr. Ramon (right). Current visit: Yes Status: Acute Assessment and Plan: Assessment: S/P right hip arthroplasty - 01/21/18, Dr. Ramon. Generalized debility and gait instability secondary to recent surgery. Paroxysmal a-rib with RVR. Acute blood loss anemia. Hyperthyroidism - history of hypothyroidism currently on Synthroid. Hypertension. Nonrheumatic mitral and tricuspid insufficiency. Chronic anticoagulation on warfarin. Osteoarthritis. Cataracts. History of hypokalemia- resolved. History of cardioversion - 06/20/15, Dr. Lopez. Plan - 01/27/18: A-fib with RVR: Hr 160 (BP stable) during assessment today; RVR persists after verapamil 240 mg and metoprolol 100 mg this am. Verito Coronado APRN ordered metoprolol 2.5 mg IV -- RN assessing response. Metoprolol tartrate increased to 150 mg BID. ABLA - hgb improved to 9.6. Cont to monitor. Electrolytes are stable. Hypothyroidism with low TSH and normal free T4 - Synthroid dose decreased from 112 to 88 mcg. Rt leg ecchymosis and post op swelling. No calf tenderness. INR therapeutic. Discussed with RN and with cardiology. DVT Prophylaxis: Coumadin - Physician Narrative Narrative: Date: 01/27/18 Time: 1034 Hospital Course Summary Disclaimer: The visit summary below is not to be considered part of the above Progress Note. Hospital Course: Plan - 01/24/18: Admit IRU for continued therapies and pain control per Dr. Mondragon for improvement in functional abilities and strength. A-fib with RVR (HR 140-150) on admission. Recent treatment in ICU with esmolol drip with improvement. Drip discontinued 01/22/18. Continue home medications - Cozaar 50mg BID and verapamil SR 180mg daily. Home metoprolol dose was increased from 50mg BID to 100mg BID by cardiology on . Will continue metoprolol 100mg BID. Consult Dr. Lopez for continued cardiac care. Continue to monitor closely on telemetry. History of hypothyroidism. Home Synthroid dose 112mcg daily. TSH on 01/22/18 was low at 0.17. Will decrease Synthroid dose to 88mcg daily and recommend rechecking TSH in 4-6 weeks. Hemoglobin slow trending down since surgery. Currently Hgb 9.0. Continue to monitor periodically. Patient asymptomatic without signs of acute bleeding. Lovenox for DVT prophylaxis and bridge therapy with Coumadin until INR therapeutic - currently INR 1.47. SCDs. Encourage incentive spirometry. Recheck labs on 01/26/18 to monitor blood counts, electrolytes and renal function. Plan - 01/25/18: Patient is improving- participating in therapy. She continues to struggle with an elevated HR- need to reassess labs in AM- anemia may be a part of the uncontrolled HR. Provided Dig x 1 dose only. Noted BB dosing was increased. Give Verapamil IR this evening, and then increase dose of SR to 240mg tomorrow AM. Continue Warfarin/Lovenox. (Consider change to NOAC?). Some mild hyperthyroid- Synthroid decreased. Recheck TSH in a few weeks. Monitor electrolytes. Overall, she is doing well. 01/27/18 A-fib with RVR: Hr 160 (BP stable) during assessment today; RVR persists after verapamil 240 mg and metoprolol 100 mg this am. Verito Coronado APRN ordered metoprolol 2.5 mg IV -- RN assessing response. Metoprolol tartrate increased to 150 mg BID. ABLA - hgb improved to 9.6. Cont to monitor. Electrolytes are stable. Hypothyroidism with low TSH and normal free T4 - Synthroid dose decreased from 112 to 88 mcg. Rt leg ecchymosis and post op swelling. No calf tenderness. INR therapeutic.
[2018-01-27] MEDS ORDERED: WARFARIN 5 MG TABLET PO SCH (12:00)
--- NOTE | 2018-01-27 14:33 | Cardiology Progress Note ---
<Verito Coronado M - Last Filed: 01/28/18 07:46> Subjective Principal diagnosis: hip fx, chronic afib w/RVR episode post op Interval history: Tika is seen in follow up for AFib RVR. This morning her rate was quite elevated , as high as the 160s. She is unaware as she does not feel it. She denies dyspnea, chest pain or dizziness. Exam Vital signs: Temperature 98.7 F 01/27/18 10:24 Pulse Rate 93 01/27/18 14:21 Respiratory Rate 16 01/27/18 10:24 Blood Pressure 131/71 01/27/18 11:11 Pulse Oximetry 99 01/27/18 11:11 Inpatient Medications: Generic Name Dose Route Start Last Admin Trade Name Freq PRN Reason Stop Dose Admin Acetaminophen 650 mg 01/23/18 17:00 01/27/18 12:25 Tylenol PO 650 mg QID YAKOV Administration Diphenhydramine HCl 25 mg 01/23/18 16:43 Benadryl PO Q6H PRN Itching Diphenhydramine HCl 25 mg 01/23/18 16:43 Benadryl IVP Q6HR PRN Itching Docusate Sodium 100 mg 01/24/18 09:26 Colace PO BID PRN Isopropyl Alcohol 1 each 01/23/18 22:00 01/27/18 14:10 Nozin Nasal Swab GISELL 1 each 0600,1400,2200 YAKOV Administration Levothyroxine Sodium 88 mcg 01/25/18 06:30 01/27/18 05:52 Synthroid PO 88 mcg ACB YAKOV Administration Lorazepam 1 mg 01/23/18 16:43 Ativan PO HS PRN Sleep Losartan Potassium 50 mg 01/23/18 21:00 01/27/18 08:35 Cozaar PO 50 mg BID YAKOV Administration Metoprolol Tartrate 150 mg 01/27/18 17:30 Lopressor PO BIDWM YAKOV Probiotic Caps - 1 each 01/26/18 12:00 01/27/18 12:28 Lactobacillus PO 1 each DAILY@1200 YAKOV Administration Ondansetron HCl 4 mg 01/23/18 16:43 01/26/18 19:50 Zofran IVP 4 mg Q4H PRN Administration Nausea &/or vomiting Polyethylene Glycol 17 gm 01/24/18 09:00 01/27/18 08:50 Miralax PO Not Given DAILY YAKOV Potassium Chloride 20 meq 01/23/18 17:30 01/27/18 12:25 K-Dur 20 Meq Tablet PO 20 meq TIDWM YAKOV Administration Senna 17.2 mg 01/23/18 21:00 01/26/18 20:03 Senna Lax PO Not Given HS YAKOV Senna 17.2 mg 01/23/18 16:43 Senna Lax PO DAILY PRN Constipation Tramadol HCl 50 - 100 mg 01/23/18 16:43 01/27/18 08:34 Ultram PO 50 mg Q6H PRN Administration Pain Verapamil HCl 240 mg 01/26/18 09:00 01/27/18 08:34 Calan Sr PO 240 mg DAILY YAKOV Administration Warfarin Sodium 0 01/24/18 09:15 Coumadin Protocol NOTE YAKOV Discontinued Medications Generic Name Dose Route Start Last Admin Trade Name Freq PRN Reason Stop Dose Admin Bisacodyl 10 mg 01/23/18 20:00 01/23/18 20:41 Dulcolax RECTALLY 01/23/18 20:01 Not Given DAILY YAKOV Digoxin 250 mcg 01/26/18 10:34 Lanoxin PO 01/26/18 10:35 ONE TIME ONE Digoxin 250 mcg 01/25/18 10:34 01/25/18 10:40 Lanoxin PO 01/25/18 10:35 250 mcg ONE TIME ONE Administration Docusate Sodium 100 mg 01/23/18 21:00 01/24/18 08:15 Colace PO 100 mg BID YAKOV Administration Enoxaparin Sodium 70 mg 01/23/18 21:00 01/27/18 08:36 Lovenox SQ 70 mg BID YAKOV Administration Levothyroxine Sodium 112 mcg 01/24/18 06:30 01/24/18 06:14 Synthroid PO Not Given ACB YAKOV Metoprolol Tartrate 50 mg 01/23/18 17:30 01/24/18 08:19 Lopressor PO 50 mg BIDWM YAKOV Administration Metoprolol Tartrate 100 mg 01/24/18 17:30 01/27/18 08:35 Lopressor PO 100 mg BIDWM YAKOV Administration Metoprolol Tartrate 50 mg 01/24/18 08:51 01/24/18 08:57 Lopressor PO 01/24/18 08:52 50 mg O ONE Administration Metoprolol Tartrate 2.5 mg 01/27/18 10:21 01/27/18 10:40 Lopressor IVP 01/27/18 10:22 2.5 mg ONCE ONE Administration Probiotic Caps - 1 each 01/25/18 13:00 01/25/18 12:33 Lactobacillus PO 1 each DAILY@1300 [facility] Administration Pharmacy Consult 1 each 01/23/18 16:43 Pharmacy Consult - Fall Risk XX 01/23/18 16:44 ONE TIME ONE Verapamil HCl 180 mg 01/24/18 09:00 01/25/18 09:05 Calan Sr PO 180 mg DAILY [facility] Administration Verapamil HCl 240 mg 01/25/18 14:15 01/25/18 18:21 Calan Sr PO Not Given DAILY [facility] Verapamil HCl 80 mg 01/25/18 17:00 01/25/18 17:47 Calan PO 01/25/18 17:01 80 mg O ONE Administration Warfarin Sodium 1 each 01/24/18 08:55 01/25/18 08:36 Pharmacy Consult - Warfarin MC 01/24/18 08:56 1 each O ONE Administration Warfarin Sodium 6 mg 01/24/18 12:00 01/24/18 12:24 Coumadin PO 01/24/18 12:30 6 mg NOON [facility] Administration Warfarin Sodium 6 mg 01/25/18 12:00 01/25/18 12:31 Coumadin PO 01/25/18 13:00 6 mg NOON [facility] Administration Warfarin Sodium 6 mg 01/26/18 12:00 01/26/18 12:08 Coumadin PO 01/26/18 13:00 6 mg NOON [facility] Administration Warfarin Sodium 5 mg 01/27/18 12:00 01/27/18 12:24 Coumadin PO 01/27/18 12:30 5 mg NOON [facility] Administration - Constitutional no acute distress, well nourished, cooperative - Routine HEENT Exam Head: Present: normocephalic ENT: Present: mucous membranes moist - Routine Neck Exam Absent: JVD, carotid bruit - Routine Chest/Breast/Axilla Exam Chest wall: Absent: tenderness - Routine Respiratory Exam Present: CTA bilaterally. Absent: rales, wheezes - Routine Cardiovascular Exam Present: tachycardia, irregular rhythm - Routine Abdominal Exam Present: soft, normoactive bowel sounds - Routine Extremities Exam Present: no edema - Routine Skin Exam Present: intact, dry, warm - Routine Neurological Exam Present: alert, oriented X3 - Routine Psychiatric Exam Present: normal affect, normal thought process - Additional findings Additional findings: Acetaminophen (Tylenol) 650 mg PO QID [facility] Last Admin: 01/27/18 12:25 Dose: 650 mg Diphenhydramine HCl (Benadryl) 25 mg PO Q6H PRN PRN Reason: Itching Diphenhydramine HCl (Benadryl) 25 mg IVP Q6HR PRN PRN Reason: Itching Docusate Sodium (Colace) 100 mg PO BID PRN Isopropyl Alcohol (Nozin Nasal Swab) 1 each GISELL 0600,1400,2200 [facility] Last Admin: 01/27/18 14:10 Dose: 1 each Levothyroxine Sodium (Synthroid) 88 mcg PO ACB [facility] Last Admin: 01/27/18 05:52 Dose: 88 mcg Lorazepam (Ativan) 1 mg PO HS PRN PRN Reason: Sleep Losartan Potassium (Cozaar) 50 mg PO BID [facility] Last Admin: 01/27/18 08:35 Dose: 50 mg Metoprolol Tartrate (Lopressor) 150 mg PO BIDWM [facility] Probiotic Caps - (Lactobacillus) 1 each PO DAILY@1200 [facility] Last Admin: 01/27/18 12:28 Dose: 1 each Ondansetron HCl (Zofran) 4 mg IVP Q4H PRN PRN Reason: Nausea &/or vomiting Last Admin: 01/26/18 19:50 Dose: 4 mg Polyethylene Glycol (Miralax) 17 gm PO DAILY [facility] Last Admin: 01/27/18 08:50 Dose: Not Given Potassium Chloride (K-Dur 20 Meq Tablet) 20 meq PO TIDWM [facility] Last Admin: 01/27/18 12:25 Dose: 20 meq Senna (Senna Lax) 17.2 mg PO HS [facility] Last Admin: 01/26/18 20:03 Dose: Not Given Senna (Senna Lax) 17.2 mg PO DAILY PRN PRN Reason: Constipation Tramadol HCl (Ultram) 50 - 100 mg PO Q6H PRN PRN Reason: Pain Last Admin: 01/27/18 08:34 Dose: 50 mg Verapamil HCl (Calan Sr) 240 mg PO DAILY [facility] Last Admin: 01/27/18 08:34 Dose: 240 mg Warfarin Sodium (Coumadin Protocol) 0 MC NOTE [facility] Results 01/26/18 06:36 01/26/18 06:36 Intake and Output 01/26/18 01/27/18 01/27/18 22:59 06:59 14:59 Other: Stool Color Brown Stool Consistency Liquid Liquid Size of Bowel Movement Large Moderate # Voids 1 1 # Bowel Movements 1 1 Assessment and Plan - Assessment and Plan (1) Paroxysmal atrial fibrillation Status: Chronic (2) Nonrheumatic mitral valve insufficiency Status: Chronic (3) Non-rheumatic tricuspid valve insufficiency Status: Chronic (4) Essential (primary) hypertension Status: Chronic (5) S/P hip replacement Problem details: 01/21/18 - Dr. Ramon (right). Status: Acute - Assessment and Plan 01/24/18 A FIB: Chronic: Rate control with Metoprolol 100mg po BID - Verapamil 180mg daily for rate control - Coumadin for stroke prevention - Lovenox 1mg/kg until INR therapeutic - EKG please 01/26/18 Chronic afib, pt having runs of rvr. Previously rate controlled prior to transfer to IRU on metoprolol 100mg bid. Since transfer tele shows AFib rates 93-167. Vitals report pluse 70-90's. Verapamil 180mg added 2 days ago. Verapamil increased to 240mg today per attending, agree with plan. Monitor bp with dosage increases. Warfarin therapy for stroke risk reduction, managed per pharmacy. Would anticipate elevated rates with increased activity during PT, will follow along. 01/27/18 Poor rate control today, HR up to 160s - Metoprolol 2.5mg IV X1 - Increase Metoprolol to 200mg BID Hospital Course Summary Disclaimer: The visit summary below is not to be considered part of the above Progress Note. Hospital Course: Plan - 01/24/18: Admit IRU for continued therapies and pain control per Dr. Mondragon for improvement in functional abilities and strength. A-fib with RVR (HR 140-150) on admission. Recent treatment in ICU with esmolol drip with improvement. Drip discontinued 01/22/18. Continue home medications - Cozaar 50mg BID and verapamil SR 180mg daily. Home metoprolol dose was increased from 50mg BID to 100mg BID by cardiology on . Will continue metoprolol 100mg BID. Consult Dr. Lopez for continued cardiac care. Continue to monitor closely on telemetry. History of hypothyroidism. Home Synthroid dose 112mcg daily. TSH on 01/22/18 was low at 0.17. Will decrease Synthroid dose to 88mcg daily and recommend rechecking TSH in 4-6 weeks. Hemoglobin slow trending down since surgery. Currently Hgb 9.0. Continue to monitor periodically. Patient asymptomatic without signs of acute bleeding. Lovenox for DVT prophylaxis and bridge therapy with Coumadin until INR therapeutic - currently INR 1.47. SCDs. Encourage incentive spirometry. Recheck labs on 01/26/18 to monitor blood counts, electrolytes and renal function. Plan - 01/25/18: Patient is improving- participating in therapy. She continues to struggle with an elevated HR- need to reassess labs in AM- anemia may be a part of the uncontrolled HR. Provided Dig x 1 dose only. Noted BB dosing was increased. Give Verapamil IR this evening, and then increase dose of SR to 240mg tomorrow AM. Continue Warfarin/Lovenox. (Consider change to NOAC?). Some mild hyperthyroid- Synthroid decreased. Recheck TSH in a few weeks. Monitor electrolytes. Overall, she is doing well. 01/27/18 A-fib with RVR: Hr 160 (BP stable) during assessment today; RVR persists after verapamil 240 mg and metoprolol 100 mg this am. Verito Coronado APRN ordered metoprolol 2.5 mg IV -- RN assessing response. Metoprolol tartrate increased to 150 mg BID. ABLA - hgb improved to 9.6. Cont to monitor. Electrolytes are stable. Hypothyroidism with low TSH and normal free T4 - Synthroid dose decreased from 112 to 88 mcg. Rt leg ecchymosis and post op swelling. No calf tenderness. INR therapeutic. <Tej Lopez - Last Filed: 02/05/18 12:31> Exam Vital signs: Temperature 97.0 F 01/31/18 07:20 Pulse Rate 138 H 01/31/18 09:54 Respiratory Rate 18 01/31/18 07:20 Blood Pressure 130/82 01/31/18 07:28 Pulse Oximetry 97 01/31/18 07:28 Inpatient Medications: Discontinued Medications Generic Name Dose Route Start Last Admin Trade Name Freq PRN Reason Stop Dose Admin Acetaminophen 650 mg 01/23/18 17:00 01/31/18 08:17 Tylenol PO 650 mg QID YAKOV Administration Bisacodyl 10 mg 01/23/18 20:00 01/23/18 20:41 Dulcolax RECTALLY 01/23/18 20:01 Not Given DAILY YAKOV Digoxin 250 mcg 01/26/18 10:34 Lanoxin PO 01/26/18 10:35 ONE TIME ONE Digoxin 250 mcg 01/25/18 10:34 01/25/18 10:40 Lanoxin PO 01/25/18 10:35 250 mcg ONE TIME ONE Administration Digoxin 125 mcg 01/28/18 14:30 01/31/18 08:14 Lanoxin PO 125 mcg DAILY YAKOV Administration Digoxin 125 mcg 01/30/18 09:52 01/30/18 09:58 Lanoxin PO 01/30/18 09:53 125 mcg O ONE Administration Diphenhydramine HCl 25 mg 01/23/18 16:43 Benadryl PO Q6H PRN Itching Diphenhydramine HCl 25 mg 01/23/18 16:43 Benadryl IVP Q6HR PRN Itching Docusate Sodium 100 mg 01/23/18 21:00 01/24/18 08:15 Colace PO 100 mg BID YAKOV Administration Docusate Sodium 100 mg 01/24/18 09:26 Colace PO BID PRN Enoxaparin Sodium 70 mg 01/23/18 21:00 01/27/18 08:36 Lovenox SQ 70 mg BID YAKOV Administration Furosemide 40 mg 01/30/18 15:45 01/31/18 08:17 Lasix 40 Mg Tab PO 40 mg DAILY YAKOV Administration Isopropyl Alcohol 1 each 01/23/18 22:00 01/31/18 08:07 Nozin Nasal Swab GISELL Not Given 0600,1400,2200 YAKOV Levothyroxine Sodium 112 mcg 01/24/18 06:30 01/24/18 06:14 Synthroid PO Not Given ACB YAKOV Levothyroxine Sodium 88 mcg 01/25/18 06:30 01/31/18 05:30 Synthroid PO 88 mcg ACB YAKOV Administration Lorazepam 1 mg 01/23/18 16:43 Ativan PO HS PRN Sleep Losartan Potassium 50 mg 01/23/18 21:00 01/31/18 08:14 Cozaar PO 50 mg BID YAKOV Administration Metoprolol Tartrate 50 mg 01/23/18 17:30 01/24/18 08:19 Lopressor PO 50 mg BIDWM YAKOV Administration Metoprolol Tartrate 100 mg 01/24/18 17:30 01/27/18 08:35 Lopressor PO 100 mg BIDWM YAKOV Administration Metoprolol Tartrate 50 mg 01/24/18 08:51 01/24/18 08:57 Lopressor PO 01/24/18 08:52 50 mg O ONE Administration Metoprolol Tartrate 2.5 mg 01/27/18 10:21 01/27/18 10:40 Lopressor IVP 01/27/18 10:22 2.5 mg ONCE ONE Administration Metoprolol Tartrate 150 mg 01/27/18 17:30 01/27/18 17:53 Lopressor PO Not Given BIDWM YAKOV Metoprolol Tartrate 200 mg 01/27/18 17:45 01/31/18 08:13 Lopressor PO 200 mg BIDWM YAKOV Administration Probiotic Caps - 1 each 01/25/18 13:00 01/25/18 12:33 Lactobacillus PO 1 each DAILY@1300 YAKOV Administration Probiotic Caps - 1 each 01/26/18 12:00 01/30/18 12:18 Lactobacillus PO 1 each DAILY@1200 YAKOV Administration Ondansetron HCl 4 mg 01/23/18 16:43 01/30/18 18:18 Zofran IVP 4 mg Q4H PRN Administration Nausea &/or vomiting Pharmacy Consult 1 each 01/23/18 16:43 Pharmacy Consult - Fall Risk XX 01/23/18 16:44 ONE TIME ONE Polyethylene Glycol 17 gm 01/24/18 09:00 01/31/18 09:56 Miralax PO Not Given DAILY YAKOV Potassium Chloride 20 meq 01/23/18 17:30 01/31/18 08:14 K-Dur 20 Meq Tablet PO 20 meq TIDWM YAKOV Administration Potassium Chloride 20 meq 01/30/18 15:35 01/30/18 16:02 K-Dur 20 Meq Tablet PO 01/30/18 15:36 20 meq O ONE Administration Potassium Chloride 20 meq 01/31/18 08:00 K-Dur 20 Meq Tablet PO WB YAKOV Senna 17.2 mg 01/23/18 21:00 01/30/18 20:22 Senna Lax PO Not Given HS YAKOV Senna 17.2 mg 01/23/18 16:43 Senna Lax PO DAILY PRN Constipation Sodium Chloride 10 ml 01/27/18 20:39 01/30/18 20:23 Iv Flush IV 10 ml PRN PRN Administration Flushing Tramadol HCl 50 - 100 mg 01/23/18 16:43 01/31/18 08:26 Ultram PO 50 mg Q6H PRN Administration Pain Verapamil HCl 180 mg 01/24/18 09:00 01/25/18 09:05 Calan Sr PO 180 mg DAILY YAKOV Administration Verapamil HCl 240 mg 01/25/18 14:15 01/25/18 18:21 Calan Sr PO Not Given DAILY YAKOV Verapamil HCl 80 mg 01/25/18 17:00 01/25/18 17:47 Calan PO 01/25/18 17:01 80 mg O ONE Administration Verapamil HCl 240 mg 01/26/18 09:00 01/31/18 08:16 Calan Sr PO 240 mg DAILY YAKOV Administration Warfarin Sodium 1 each 01/24/18 08:55 01/25/18 08:36 Pharmacy Consult - Warfarin 01/24/18 08:56 1 each O ONE Administration Warfarin Sodium 0 01/24/18 09:15 Coumadin Protocol NOTE YAKOV Warfarin Sodium 6 mg 01/24/18 12:00 01/24/18 12:24 Coumadin PO 01/24/18 12:30 6 mg NOON YAKOV Administration Warfarin Sodium 6 mg 01/25/18 12:00 01/25/18 12:31 Coumadin PO 01/25/18 13:00 6 mg NOON YAKOV Administration Warfarin Sodium 6 mg 01/26/18 12:00 01/26/18 12:08 Coumadin PO 01/26/18 13:00 6 mg NOON YAKOV Administration Warfarin Sodium 5 mg 01/27/18 12:00 01/27/18 12:24 Coumadin PO 01/27/18 12:30 5 mg NOON YAKOV Administration Warfarin Sodium 2.5 mg 01/28/18 12:00 01/28/18 12:26 Coumadin PO 01/28/18 12:30 2.5 mg NOON YAKOV Administration Warfarin Sodium 3 mg 01/30/18 12:00 01/30/18 12:18 Coumadin PO 01/30/18 12:30 3 mg NOON YAKOV Administration Warfarin Sodium 4 mg 01/31/18 12:00 Coumadin PO 01/31/18 12:15 NOON YAKOV Results 01/31/18 04:13 01/31/18 04:13 Assessment and Plan - Assessment and Plan (1) Paroxysmal atrial fibrillation Status: Chronic (2) Nonrheumatic mitral valve insufficiency Status: Chronic (3) Non-rheumatic tricuspid valve insufficiency Status: Chronic (4) Essential (primary) hypertension Status: Chronic (5) S/P hip replacement Problem details: 01/21/18 - Dr. Ramon (right). Status: Acute - Attestation Attestation Narrative: 02/05/18 12:31 Recommendation After examining the patient I agree with the above assessment. I am involved in the formulation of the patient's plan of care. Hospital Course Summary Disclaimer: The visit summary below is not to be considered part of the above Progress Note.
[2018-01-27] MEDS: SALINE FLUSH 10ml SYRINGE IV PRN (20:40)
[2018-01-27] MEDS: SENNOSIDES 8.6 MG TABLET PO SCH (20:48)
[2018-01-28] MEDS: NOZIN NASAL SWAB NAS SCH ×4 (02:33→22:44)
[2018-01-28] MEDS: LEVOTHYROXINE 88 MCG TABLET PO SCH ×2 (05:16→08:38)
--- NOTE | 2018-01-28 07:48 | Pharmacy Consult ---
Pharmacy Consult-Warfarin - Laboratory Information 01/24/18 01/25/18 01/26/18 04:03 04:25 06:36 INR 1.47 H 1.84 H 2.00 H 01/27/18 01/28/18 08:06 06:16 INR 2.4 2.90 H - Consult Information INR is in target range. INR trending up. Warfarin 2.5mg ordered for noon today. Thank you.
[2018-01-28] MEDS: Verapamil SR 120 MG TABLET E.R. PO SCH (08:46)
[2018-01-28] MEDS: ACETAMINOPHEN 325 MG TABLET PO SCH ×4 (08:46→22:16)
[2018-01-28] MEDS: LOSARTAN 50 MG TABLET PO SCH ×2 (08:46→22:17)
[2018-01-28] MEDS: POLYETHYL GLYCOL 3350 17gm PACKET PO SCH (08:47)
[2018-01-28] MEDS: SALINE FLUSH 10ml SYRINGE IV PRN ×3 (08:47→22:51)
--- NOTE | 2018-01-28 10:41 | IRU Progress Note ---
- Subjective/Serverity of Illness Date: 01/28/18 Tika was evaluated in her room on inpatient rehabilitation. She continues to state that she has significant fatigue with activity. She actually denies shortness of breath and cannot tell when her heart is beating fast. Pain control is reasonably good she states. There is a trace of edema in the right lower extremity. Was seen by cardiology yesterday. She is on verapamil and now metoprolol has been increased to 200 mg twice daily. Her appetite tends to come and go. Does not like the food always. However no nausea no vomiting. Chart indicates liquid stool yesterday. However stool was sent down apparently it was too formed to be checked for C. difficile. She states that she has had formed stools ever since. She denies any abdominal cramping or pain. Continues to progress with therapy. Has not really walked in the hallway but mainly complains of fatigability. Exam Vital Signs: Temperature 98.2 F 01/28/18 08:38 Pulse Rate 110 H 01/28/18 08:38 Respiratory Rate 16 01/28/18 08:38 Blood Pressure 156/88 H 01/28/18 08:38 Pulse Oximetry 98 01/28/18 08:38 Height/Weight/BMI: Height 1.65 m Weight 69.8 kg Body Mass Index 29.6 - Constitutional Present: no acute distress, well nourished, well developed, average body habitus , cooperative - Routine HEENT Exam Head: Present: normocephalic, atraumatic Eye: Present: EOMI ENT: Present: mucous membranes moist, oropharynx clear - Routine Neck Exam Present: supple - Routine Respiratory Exam Present: CTA bilaterally. Absent: wheezes - Routine Cardiovascular Exam Present: S1, S2, irregularly irregular. Absent: murmur - Routine Abdominal Exam Present: soft, normoactive bowel sounds, non distended. Absent: tenderness - Routine Extremities Exam Present: edema (trace right lower extremity). Absent: cyanosis, clubbing - Routine Skin Exam Present: dry, warm - Routine Neurological Exam Present: alert, oriented X3, CN II-XII intact - Routine Psychiatric Exam Present: normal affect, cooperative Results IRU - Labs Labs: Reviewed other providers notes, lab results etc. Reviewed telemetry strips as well. IRU A/P (1) S/P hip replacement Qualifiers: Laterality: right Qualified Code(s): Z96.641 - Presence of right artificial hip joint Problem details: 01/21/18 - Dr. Ramon (right). Current visit: Yes Status: Acute Patient has the anticipated amount of mild edema on the right side. Reports that her pain is adequately controlled at present. Complains of fatigability with activity. (2) Paroxysmal atrial fibrillation Current visit: Yes Status: Chronic Atrial fibrillation appears to be more chronic at present. Cardiology has seen and his increased metoprolol to 200 mg twice daily. Rates are around 100-120 on tele. (3) Nonrheumatic mitral valve insufficiency Current visit: No Status: Chronic (4) Non-rheumatic tricuspid valve insufficiency Current visit: No Status: Chronic (5) Essential (primary) hypertension Current visit: No Status: Chronic Blood pressure overall is adequately controlled. Still has occasional spikes, despite metoprolol. DVT Prophylaxis: Coumadin Resuscitation Status: Do Not Resuscitate - Course Hospital Course: Hoang Mondragon MD: 01/24/18 11:27 Getting started with therapy and appears to be participatory. Reports pain adequately controlled in the hip. Atrial fib with occasional responses up to 133, asymptomatic. Denies dyspnea. 01/27/18 10:31 She does develop some loose stools. C. difficile is pending. Continues to have rapid ventricular response with her atrial fibrillation. Verapamil has been increased area Blood pressures a bit elevated. Complains of fatigue but no dyspnea. 01/28/18 10:43 Loose stools abating. She reports firm stools at present. Easy fatigability. Metoprolol increased to 200 mg twice daily. RVR a bit improved at 100-120. - Interventions to Obtain Goals PT Treatment Plan: Balance/Proprioception, Functional Activities, Manual Therapy , Patient/Family Education, Therapeutic Exercise OT Treatment Plan: ADL (Basic Care), Balance Training, IADL, Pt./Family Education, Ther. Exercise for ADL
[2018-01-28] MEDS ORDERED: WARFARIN 2.5 MG TABLET PO SCH (12:00)
--- NOTE | 2018-01-28 13:51 | IRU Team Meeting ---
IRU Team Meeting - Nursing Bladder Assistive Devices Utilized:: Absorbent Pad Bladder Management Level of Assist: Independent Bladder Frequency of Accidents: No accidents Bowel Assistive Devices Utilized:: Medication Bowel Management Level of Assist: Modified Independent Bowel Frequency of Accidents: No accidents Vital Signs: Vital Signs - 24 hr 01/27/18 14:21 01/27/18 15:30 01/27/18 15:55 Temperature 97.8 F Pulse Rate 93 78 92 Respiratory Rate 16 Blood Pressure 144/83 H Pulse Oximetry 95 01/27/18 20:47 01/28/18 00:00 01/28/18 05:36 Temperature 97.9 F Pulse Rate 81 84 108 H Respiratory Rate 20 Blood Pressure 135/71 Pulse Oximetry 98 01/28/18 08:00 01/28/18 08:38 Temperature 98.2 F Pulse Rate 112 H 110 H Respiratory Rate 16 Blood Pressure 156/88 H Pulse Oximetry 98 Current Medications: Acetaminophen (Tylenol) 650 mg PO QID [facility] Last Admin: 01/28/18 12:26 Dose: 650 mg Diphenhydramine HCl (Benadryl) 25 mg PO Q6H PRN PRN Reason: Itching Diphenhydramine HCl (Benadryl) 25 mg IVP Q6HR PRN PRN Reason: Itching Docusate Sodium (Colace) 100 mg PO BID PRN Isopropyl Alcohol (Nozin Nasal Swab) 1 each GISELL 0600,1400,2200 [facility] Last Admin: 01/28/18 05:16 Dose: 1 each Levothyroxine Sodium (Synthroid) 88 mcg PO ACB [facility] Last Admin: 01/28/18 08:38 Dose: Not Given Lorazepam (Ativan) 1 mg PO HS PRN PRN Reason: Sleep Losartan Potassium (Cozaar) 50 mg PO BID [facility] Last Admin: 01/28/18 08:46 Dose: 50 mg Metoprolol Tartrate (Lopressor) 200 mg PO BIDWM [facility] Last Admin: 01/28/18 08:46 Dose: 200 mg Probiotic Caps - (Lactobacillus) 1 each PO DAILY@1200 [facility] Last Admin: 01/28/18 12:26 Dose: 1 each Ondansetron HCl (Zofran) 4 mg IVP Q4H PRN PRN Reason: Nausea &/or vomiting Last Admin: 01/26/18 19:50 Dose: 4 mg Polyethylene Glycol (Miralax) 17 gm PO DAILY [facility] Last Admin: 01/28/18 08:47 Dose: Not Given Potassium Chloride (K-Dur 20 Meq Tablet) 20 meq PO TIDWM [facility] Last Admin: 01/28/18 12:26 Dose: 20 meq Senna (Senna Lax) 17.2 mg PO HS [facility] Last Admin: 01/27/18 20:48 Dose: Not Given Senna (Senna Lax) 17.2 mg PO DAILY PRN PRN Reason: Constipation Sodium Chloride (Iv Flush) 10 ml IV PRN PRN PRN Reason: Flushing Last Admin: 01/28/18 08:47 Dose: 10 ml Tramadol HCl (Ultram) 50 - 100 mg PO Q6H PRN PRN Reason: Pain Last Admin: 01/27/18 08:34 Dose: 50 mg Verapamil HCl (Calan Sr) 240 mg PO DAILY [facility] Last Admin: 01/28/18 08:46 Dose: 240 mg Warfarin Sodium (Coumadin Protocol) 0 MC NOTE [facility] Current Medical Issues: atrial fib, hypertension, occasional loose stools Comments: I certify that I personally led the interdisciplinary team meeting and agree with comments, barriers and goals indicated. Team meeting was held in the patient's room with the patient and the following family members present: pt alone Patient's atrial fibrillation has continued to demonstrate rapid ventricular response. Her metoprolol has been increased to 200 mg twice daily. She remains on verapamil. She does have easy fatigability but denies much in the way of dyspnea. She has had some loose stools but these are thankfully negative for C. difficile. - Physical Therapy Bed, Chair, Wheelchair Transfer Assist: Stand By Assist/Supervision, 1 Person Assist Ambulation Ability: Stand By Assist/Supervision, Household Exception Ambulation Distance: 66 Wheelchair Propulsion Ability: Maximal Assistance Wheelchair Propulsion Distance: 20 Stair Climbing Ability: Maximal Assistance, 1 Person Assist Number of Steps Climbed: 6 Car Transfer Ability: Minimal Assistance, 1 Person Assist Comments: Patient has demonstrated good bilateral lower extremity strength. She has tolerated progressive exercises to the standing position. She has demonstrated good maintenance of hip precautions and is able to verbalize 3 out of 3. Due to contact precautions, distance has been limited with regard to gait. With resolution of her contact precautions, strength and endurance and distance should increase. - Occupational Therapy Eating Ability: Independent Grooming Ability: Stand By Assist/Supervision Bathing Ability: Modified Independent Upper Body Dressing Ability: Independent Lower Body Dressing Ability: Modified Independent Tub Transfer Assist: Stand By Assist/Supervision Toileting Assist: Modified Independent Toilet Transfer Assist: Stand By Assist/Supervision Comments: She does tend to fatigue quickly and has a low activity tolerance. She does require encouragement to participate in therapy and does take some extra time to complete tasks. Nevertheless she is independent for many activities and modified independent for lower body dressing and bathing ability. She is standby assist for grooming and tub transfer assist. - Goals Physical Therapy Goals: 01/28/18 Goals: 1.) Amublation distance of 150 feet with front wheeled walker. 2.) Demonstrate hip precautions 100% of the time with functional mobility. Occupational Therapy Goals: 01/28/18 Goals: 1) Perform lower body dressing with adaptive equipment modified-independent. 2) Demonstrate hip precautions 100% of the time during self-care tasks. - Barriers to Discharge Barriers to Attaining Goals: Weakness (she is provided with progressive resistive exercises.), Endurance (goal for fewer rest breaks and increased cardiovascular training.), Comprehension (hip precautions: She is provided continued education and visual aid.) - Care Plan Anticipated Length of Stay (days): 3 Anticipated DC Destination: Home, Self Care, Home Health Service I have led this team conference and agree with the plan. Interventions/Goals: If the patient continues to progress as anticipated, she will be dismissed to her home with home health assistance on 01/31/2018. Her questions were addressed.
--- NOTE | 2018-01-28 14:18 | Cardiology Progress Note ---
<Verito Coronado M - Last Filed: 01/28/18 14:14> Subjective Principal diagnosis: hip fx, chronic afib w/RVR episode post op Interval history: Tika is seen in follow up for AFib RVR. She reports increased swelling to operative knee, but denies pain in calf or knee. Her rate is suboptimally controlled. She is unaware as she does not feel it. Will add a little Digoxin. She denies dyspnea, chest pain or dizziness. Exam Vital signs: Temperature 98.2 F 01/28/18 08:38 Pulse Rate 110 H 01/28/18 08:38 Respiratory Rate 16 01/28/18 08:38 Blood Pressure 156/88 H 01/28/18 08:38 Pulse Oximetry 98 01/28/18 08:38 Inpatient Medications: Generic Name Dose Route Start Last Admin Trade Name Freq PRN Reason Stop Dose Admin Acetaminophen 650 mg 01/23/18 17:00 01/28/18 12:26 Tylenol PO 650 mg QID YAKOV Administration Diphenhydramine HCl 25 mg 01/23/18 16:43 Benadryl PO Q6H PRN Itching Diphenhydramine HCl 25 mg 01/23/18 16:43 Benadryl IVP Q6HR PRN Itching Docusate Sodium 100 mg 01/24/18 09:26 Colace PO BID PRN Isopropyl Alcohol 1 each 01/23/18 22:00 01/28/18 05:16 Nozin Nasal Swab GISELL 1 each 0600,1400,2200 YAKOV Administration Levothyroxine Sodium 88 mcg 01/25/18 06:30 01/28/18 08:38 Synthroid PO Not Given ACB YAKOV Lorazepam 1 mg 01/23/18 16:43 Ativan PO HS PRN Sleep Losartan Potassium 50 mg 01/23/18 21:00 01/28/18 08:46 Cozaar PO 50 mg BID YAKOV Administration Metoprolol Tartrate 200 mg 01/27/18 17:45 01/28/18 08:46 Lopressor PO 200 mg BIDWM YAKOV Administration Probiotic Caps - 1 each 01/26/18 12:00 01/28/18 12:26 Lactobacillus PO 1 each DAILY@1200 YAKOV Administration Ondansetron HCl 4 mg 01/23/18 16:43 01/26/18 19:50 Zofran IVP 4 mg Q4H PRN Administration Nausea &/or vomiting Polyethylene Glycol 17 gm 01/24/18 09:00 01/28/18 08:47 Miralax PO Not Given DAILY YAKOV Potassium Chloride 20 meq 01/23/18 17:30 01/28/18 12:26 K-Dur 20 Meq Tablet PO 20 meq TIDWM YAKOV Administration Senna 17.2 mg 01/23/18 21:00 01/27/18 20:48 Senna Lax PO Not Given HS YAKOV Senna 17.2 mg 01/23/18 16:43 Senna Lax PO DAILY PRN Constipation Sodium Chloride 10 ml 01/27/18 20:39 01/28/18 08:47 Iv Flush IV 10 ml PRN PRN Administration Flushing Tramadol HCl 50 - 100 mg 01/23/18 16:43 01/27/18 08:34 Ultram PO 50 mg Q6H PRN Administration Pain Verapamil HCl 240 mg 01/26/18 09:00 01/28/18 08:46 Calan Sr PO 240 mg DAILY YAKOV Administration Warfarin Sodium 0 01/24/18 09:15 Coumadin Protocol NOTE YAKOV Discontinued Medications Generic Name Dose Route Start Last Admin Trade Name Freq PRN Reason Stop Dose Admin Bisacodyl 10 mg 01/23/18 20:00 01/23/18 20:41 Dulcolax RECTALLY 01/23/18 20:01 Not Given DAILY YAKOV Digoxin 250 mcg 01/26/18 10:34 Lanoxin PO 01/26/18 10:35 ONE TIME ONE Digoxin 250 mcg 01/25/18 10:34 01/25/18 10:40 Lanoxin PO 01/25/18 10:35 250 mcg ONE TIME ONE Administration Docusate Sodium 100 mg 01/23/18 21:00 01/24/18 08:15 Colace PO 100 mg BID YAKOV Administration Enoxaparin Sodium 70 mg 01/23/18 21:00 01/27/18 08:36 Lovenox SQ 70 mg BID YAKOV Administration Levothyroxine Sodium 112 mcg 01/24/18 06:30 01/24/18 06:14 Synthroid PO Not Given ACB YAKOV Metoprolol Tartrate 50 mg 01/23/18 17:30 01/24/18 08:19 Lopressor PO 50 mg BIDWM YAKOV Administration Metoprolol Tartrate 100 mg 01/24/18 17:30 01/27/18 08:35 Lopressor PO 100 mg BIDWM YAKOV Administration Metoprolol Tartrate 50 mg 01/24/18 08:51 01/24/18 08:57 Lopressor PO 01/24/18 08:52 50 mg O ONE Administration Metoprolol Tartrate 2.5 mg 01/27/18 10:21 01/27/18 10:40 Lopressor IVP 01/27/18 10:22 2.5 mg ONCE ONE Administration Metoprolol Tartrate 150 mg 01/27/18 17:30 01/27/18 17:53 Lopressor PO Not Given BIDWM YAKOV Probiotic Caps - 1 each 01/25/18 13:00 01/25/18 12:33 Lactobacillus PO 1 each DAILY@1300 [facility] Administration Pharmacy Consult 1 each 01/23/18 16:43 Pharmacy Consult - Fall Risk XX 01/23/18 16:44 ONE TIME ONE Verapamil HCl 180 mg 01/24/18 09:00 01/25/18 09:05 Calan Sr PO 180 mg DAILY YAKOV Administration Verapamil HCl 240 mg 01/25/18 14:15 01/25/18 18:21 Calan Sr PO Not Given DAILY YAKOV Verapamil HCl 80 mg 01/25/18 17:00 01/25/18 17:47 Calan PO 01/25/18 17:01 80 mg O ONE Administration Warfarin Sodium 1 each 01/24/18 08:55 01/25/18 08:36 Pharmacy Consult - Warfarin MC 01/24/18 08:56 1 each O ONE Administration Warfarin Sodium 6 mg 01/24/18 12:00 01/24/18 12:24 Coumadin PO 01/24/18 12:30 6 mg NOON YAKOV Administration Warfarin Sodium 6 mg 01/25/18 12:00 01/25/18 12:31 Coumadin PO 01/25/18 13:00 6 mg NOON YAKOV Administration Warfarin Sodium 6 mg 01/26/18 12:00 01/26/18 12:08 Coumadin PO 01/26/18 13:00 6 mg NOON YAKOV Administration Warfarin Sodium 5 mg 01/27/18 12:00 01/27/18 12:24 Coumadin PO 01/27/18 12:30 5 mg NOON YAKOV Administration Warfarin Sodium 2.5 mg 01/28/18 12:00 01/28/18 12:26 Coumadin PO 01/28/18 12:30 2.5 mg NOON [facility] Administration - Constitutional no acute distress, well nourished, cooperative - Routine HEENT Exam Head: Present: normocephalic ENT: Present: mucous membranes moist - Routine Neck Exam Absent: JVD, carotid bruit - Routine Chest/Breast/Axilla Exam Chest wall: Absent: tenderness - Routine Respiratory Exam Present: CTA bilaterally. Absent: rales, wheezes - Routine Cardiovascular Exam Present: tachycardia, irregular rhythm - Routine Abdominal Exam Present: soft, normoactive bowel sounds - Routine Extremities Exam Present: edema (right knee) - Routine Skin Exam Present: intact, dry, warm - Routine Neurological Exam Present: alert, oriented X3 - Routine Psychiatric Exam Present: normal affect, normal thought process - Additional findings Additional findings: Acetaminophen (Tylenol) 650 mg PO QID [facility] Last Admin: 01/28/18 12:26 Dose: 650 mg Digoxin (Lanoxin) 125 mcg PO DAILY [facility] Diphenhydramine HCl (Benadryl) 25 mg PO Q6H PRN PRN Reason: Itching Diphenhydramine HCl (Benadryl) 25 mg IVP Q6HR PRN PRN Reason: Itching Docusate Sodium (Colace) 100 mg PO BID PRN Isopropyl Alcohol (Nozin Nasal Swab) 1 each GISELL 0600,1400,2200 [facility] Last Admin: 01/28/18 05:16 Dose: 1 each Levothyroxine Sodium (Synthroid) 88 mcg PO ACB [facility] Last Admin: 01/28/18 08:38 Dose: Not Given Lorazepam (Ativan) 1 mg PO HS PRN PRN Reason: Sleep Losartan Potassium (Cozaar) 50 mg PO BID [facility] Last Admin: 01/28/18 08:46 Dose: 50 mg Metoprolol Tartrate (Lopressor) 200 mg PO BIDWM [facility] Last Admin: 01/28/18 08:46 Dose: 200 mg Probiotic Caps - (Lactobacillus) 1 each PO DAILY@1200 [facility] Last Admin: 01/28/18 12:26 Dose: 1 each Ondansetron HCl (Zofran) 4 mg IVP Q4H PRN PRN Reason: Nausea &/or vomiting Last Admin: 01/26/18 19:50 Dose: 4 mg Polyethylene Glycol (Miralax) 17 gm PO DAILY [facility] Last Admin: 01/28/18 08:47 Dose: Not Given Potassium Chloride (K-Dur 20 Meq Tablet) 20 meq PO TIDWM [facility] Last Admin: 01/28/18 12:26 Dose: 20 meq Senna (Senna Lax) 17.2 mg PO HS [facility] Last Admin: 01/27/18 20:48 Dose: Not Given Senna (Senna Lax) 17.2 mg PO DAILY PRN PRN Reason: Constipation Sodium Chloride (Iv Flush) 10 ml IV PRN PRN PRN Reason: Flushing Last Admin: 01/28/18 08:47 Dose: 10 ml Tramadol HCl (Ultram) 50 - 100 mg PO Q6H PRN PRN Reason: Pain Last Admin: 01/27/18 08:34 Dose: 50 mg Verapamil HCl (Calan Sr) 240 mg PO DAILY [facility] Last Admin: 01/28/18 08:46 Dose: 240 mg Warfarin Sodium (Coumadin Protocol) 0 MC NOTE [facility] Results 01/26/18 06:36 01/26/18 06:36 Intake and Output 01/27/18 01/28/18 01/28/18 22:59 06:59 14:59 Other: Urine Appearance Clear Urine Color Yellow Urine Odor Normal Stool Consistency Loose Size of Bowel Movement Moderate # Voids 1 1 1 Assessment and Plan - Assessment and Plan (1) Paroxysmal atrial fibrillation Status: Chronic (2) Nonrheumatic mitral valve insufficiency Status: Chronic (3) Non-rheumatic tricuspid valve insufficiency Status: Chronic (4) Essential (primary) hypertension Status: Chronic (5) S/P hip replacement Problem details: 01/21/18 - Dr. Ramon (right). Status: Acute - Assessment and Plan 01/24/18 A FIB: Chronic: Rate control with Metoprolol 100mg po BID - Verapamil 180mg daily for rate control - Coumadin for stroke prevention - Lovenox 1mg/kg until INR therapeutic - EKG please 01/26/18 Chronic afib, pt having runs of rvr. Previously rate controlled prior to transfer to IRU on metoprolol 100mg bid. Since transfer tele shows AFib rates 93-167. Vitals report pluse 70-90's. Verapamil 180mg added 2 days ago. Verapamil increased to 240mg today per attending, agree with plan. Monitor bp with dosage increases. Warfarin therapy for stroke risk reduction, managed per pharmacy. Would anticipate elevated rates with increased activity during PT, will follow along. 01/27/18 Poor rate control today, HR up to 160s - Metoprolol 2.5mg IV X1 - Increase Metoprolol to 200mg BID 01/28/18 Digoxin 125mcg po Daily - Check Digoxin level in 10 days. Hospital Course Summary Disclaimer: The visit summary below is not to be considered part of the above Progress Note. Hospital Course: Plan - 01/24/18: Admit IRU for continued therapies and pain control per Dr. Mondragon for improvement in functional abilities and strength. A-fib with RVR (HR 140-150) on admission. Recent treatment in ICU with esmolol drip with improvement. Drip discontinued 01/22/18. Continue home medications - Cozaar 50mg BID and verapamil SR 180mg daily. Home metoprolol dose was increased from 50mg BID to 100mg BID by cardiology on . Will continue metoprolol 100mg BID. Consult Dr. Lopez for continued cardiac care. Continue to monitor closely on telemetry. History of hypothyroidism. Home Synthroid dose 112mcg daily. TSH on 01/22/18 was low at 0.17. Will decrease Synthroid dose to 88mcg daily and recommend rechecking TSH in 4-6 weeks. Hemoglobin slow trending down since surgery. Currently Hgb 9.0. Continue to monitor periodically. Patient asymptomatic without signs of acute bleeding. Lovenox for DVT prophylaxis and bridge therapy with Coumadin until INR therapeutic - currently INR 1.47. SCDs. Encourage incentive spirometry. Recheck labs on 01/26/18 to monitor blood counts, electrolytes and renal function. Plan - 01/25/18: Patient is improving- participating in therapy. She continues to struggle with an elevated HR- need to reassess labs in AM- anemia may be a part of the uncontrolled HR. Provided Dig x 1 dose only. Noted BB dosing was increased. Give Verapamil IR this evening, and then increase dose of SR to 240mg tomorrow AM. Continue Warfarin/Lovenox. (Consider change to NOAC?). Some mild hyperthyroid- Synthroid decreased. Recheck TSH in a few weeks. Monitor electrolytes. Overall, she is doing well. 01/27/18 A-fib with RVR: Hr 160 (BP stable) during assessment today; RVR persists after verapamil 240 mg and metoprolol 100 mg this am. Verito Coronado APRN ordered metoprolol 2.5 mg IV -- RN assessing response. Metoprolol tartrate increased to 150 mg BID. ABLA - hgb improved to 9.6. Cont to monitor. Electrolytes are stable. Hypothyroidism with low TSH and normal free T4 - Synthroid dose decreased from 112 to 88 mcg. Rt leg ecchymosis and post op swelling. No calf tenderness. INR therapeutic. <Tej Lopez - Last Filed: 02/05/18 12:38> Exam Vital signs: Temperature 97.0 F 01/31/18 07:20 Pulse Rate 138 H 01/31/18 09:54 Respiratory Rate 18 01/31/18 07:20 Blood Pressure 130/82 01/31/18 07:28 Pulse Oximetry 97 01/31/18 07:28 Inpatient Medications: Discontinued Medications Generic Name Dose Route Start Last Admin Trade Name Freq PRN Reason Stop Dose Admin Acetaminophen 650 mg 01/23/18 17:00 01/31/18 08:17 Tylenol PO 650 mg QID YAKOV Administration Bisacodyl 10 mg 01/23/18 20:00 01/23/18 20:41 Dulcolax RECTALLY 01/23/18 20:01 Not Given DAILY YAKOV Digoxin 250 mcg 01/26/18 10:34 Lanoxin PO 01/26/18 10:35 ONE TIME ONE Digoxin 250 mcg 01/25/18 10:34 01/25/18 10:40 Lanoxin PO 01/25/18 10:35 250 mcg ONE TIME ONE Administration Digoxin 125 mcg 01/28/18 14:30 01/31/18 08:14 Lanoxin PO 125 mcg DAILY YAKOV Administration Digoxin 125 mcg 01/30/18 09:52 01/30/18 09:58 Lanoxin PO 01/30/18 09:53 125 mcg O ONE Administration Diphenhydramine HCl 25 mg 01/23/18 16:43 Benadryl PO Q6H PRN Itching Diphenhydramine HCl 25 mg 01/23/18 16:43 Benadryl IVP Q6HR PRN Itching Docusate Sodium 100 mg 01/23/18 21:00 01/24/18 08:15 Colace PO 100 mg BID YAKOV Administration Docusate Sodium 100 mg 01/24/18 09:26 Colace PO BID PRN Enoxaparin Sodium 70 mg 01/23/18 21:00 01/27/18 08:36 Lovenox SQ 70 mg BID YAKOV Administration Furosemide 40 mg 01/30/18 15:45 01/31/18 08:17 Lasix 40 Mg Tab PO 40 mg DAILY YAKOV Administration Isopropyl Alcohol 1 each 01/23/18 22:00 01/31/18 08:07 Nozin Nasal Swab GISELL Not Given 0600,1400,2200 YAKOV Levothyroxine Sodium 112 mcg 01/24/18 06:30 01/24/18 06:14 Synthroid PO Not Given ACB YAKOV Levothyroxine Sodium 88 mcg 01/25/18 06:30 01/31/18 05:30 Synthroid PO 88 mcg ACB YAKOV Administration Lorazepam 1 mg 01/23/18 16:43 Ativan PO HS PRN Sleep Losartan Potassium 50 mg 01/23/18 21:00 01/31/18 08:14 Cozaar PO 50 mg BID YAKOV Administration Metoprolol Tartrate 50 mg 01/23/18 17:30 01/24/18 08:19 Lopressor PO 50 mg BIDWM YAKOV Administration Metoprolol Tartrate 100 mg 01/24/18 17:30 01/27/18 08:35 Lopressor PO 100 mg BIDWM YAKOV Administration Metoprolol Tartrate 50 mg 01/24/18 08:51 01/24/18 08:57 Lopressor PO 01/24/18 08:52 50 mg O ONE Administration Metoprolol Tartrate 2.5 mg 01/27/18 10:21 01/27/18 10:40 Lopressor IVP 01/27/18 10:22 2.5 mg ONCE ONE Administration Metoprolol Tartrate 150 mg 01/27/18 17:30 01/27/18 17:53 Lopressor PO Not Given BIDWM YAKOV Metoprolol Tartrate 200 mg 01/27/18 17:45 01/31/18 08:13 Lopressor PO 200 mg BIDWM YAKOV Administration Probiotic Caps - 1 each 01/25/18 13:00 01/25/18 12:33 Lactobacillus PO 1 each DAILY@1300 YAKOV Administration Probiotic Caps - 1 each 01/26/18 12:00 01/30/18 12:18 Lactobacillus PO 1 each DAILY@1200 YAKOV Administration Ondansetron HCl 4 mg 01/23/18 16:43 01/30/18 18:18 Zofran IVP 4 mg Q4H PRN Administration Nausea &/or vomiting Pharmacy Consult 1 each 01/23/18 16:43 Pharmacy Consult - Fall Risk XX 01/23/18 16:44 ONE TIME ONE Polyethylene Glycol 17 gm 01/24/18 09:00 01/31/18 09:56 Miralax PO Not Given DAILY YAKOV Potassium Chloride 20 meq 01/23/18 17:30 01/31/18 08:14 K-Dur 20 Meq Tablet PO 20 meq TIDWM YAKOV Administration Potassium Chloride 20 meq 01/30/18 15:35 01/30/18 16:02 K-Dur 20 Meq Tablet PO 01/30/18 15:36 20 meq O ONE Administration Potassium Chloride 20 meq 01/31/18 08:00 K-Dur 20 Meq Tablet PO WB YAKOV Senna 17.2 mg 01/23/18 21:00 01/30/18 20:22 Senna Lax PO Not Given HS YAKOV Senna 17.2 mg 01/23/18 16:43 Senna Lax PO DAILY PRN Constipation Sodium Chloride 10 ml 01/27/18 20:39 01/30/18 20:23 Iv Flush IV 10 ml PRN PRN Administration Flushing Tramadol HCl 50 - 100 mg 01/23/18 16:43 01/31/18 08:26 Ultram PO 50 mg Q6H PRN Administration Pain Verapamil HCl 180 mg 01/24/18 09:00 01/25/18 09:05 Calan Sr PO 180 mg DAILY YAKOV Administration Verapamil HCl 240 mg 01/25/18 14:15 01/25/18 18:21 Calan Sr PO Not Given DAILY YAKOV Verapamil HCl 80 mg 01/25/18 17:00 01/25/18 17:47 Calan PO 01/25/18 17:01 80 mg O ONE Administration Verapamil HCl 240 mg 01/26/18 09:00 01/31/18 08:16 Calan Sr PO 240 mg DAILY YAKOV Administration Warfarin Sodium 1 each 01/24/18 08:55 01/25/18 08:36 Pharmacy Consult - Warfarin MC 01/24/18 08:56 1 each O ONE Administration Warfarin Sodium 0 01/24/18 09:15 Coumadin Protocol NOTE YAKOV Warfarin Sodium 6 mg 01/24/18 12:00 01/24/18 12:24 Coumadin PO 01/24/18 12:30 6 mg NOON YAKOV Administration Warfarin Sodium 6 mg 01/25/18 12:00 01/25/18 12:31 Coumadin PO 01/25/18 13:00 6 mg NOON YAKOV Administration Warfarin Sodium 6 mg 01/26/18 12:00 01/26/18 12:08 Coumadin PO 01/26/18 13:00 6 mg NOON YAKOV Administration Warfarin Sodium 5 mg 01/27/18 12:00 01/27/18 12:24 Coumadin PO 01/27/18 12:30 5 mg NOON YAKOV Administration Warfarin Sodium 2.5 mg 01/28/18 12:00 01/28/18 12:26 Coumadin PO 01/28/18 12:30 2.5 mg NOON YAKOV Administration Warfarin Sodium 3 mg 01/30/18 12:00 01/30/18 12:18 Coumadin PO 01/30/18 12:30 3 mg NOON YAKOV Administration Warfarin Sodium 4 mg 01/31/18 12:00 Coumadin PO 01/31/18 12:15 NOON YAKOV Results 01/31/18 04:13 01/31/18 04:13 Assessment and Plan - Assessment and Plan (1) Paroxysmal atrial fibrillation Status: Chronic (2) Nonrheumatic mitral valve insufficiency Status: Chronic (3) Non-rheumatic tricuspid valve insufficiency Status: Chronic (4) Essential (primary) hypertension Status: Chronic (5) S/P hip replacement Problem details: 01/21/18 - Dr. Ramon (right). Status: Acute - Attestation Attestation Narrative: 02/05/18 12:38 Recommendation After examining the patient I agree with the above assessment. I am involved in the formulation of the patient's plan of care. Hospital Course Summary Disclaimer: The visit summary below is not to be considered part of the above Progress Note.
[2018-01-28] MEDS: DIGOXIN 125 MCG TABLET PO SCH (15:03)
--- NOTE | 2018-01-28 15:29 | Progress Note ---
Progress Note: Therapy noted some bloody drainage on the dressing from the right hip. I contacted René Tapia who checked on the patient. He changed the dressing. He states the wound looks fine. Bloody drainage is likely due to the fact that she is on warfarin. He will recheck in the morning. There is no evidence of infection.
[2018-01-28] MEDS: TRAMADOL 50 MG TABLET PO PRN (16:05)
[2018-01-28] MEDS: SENNOSIDES 8.6 MG TABLET PO SCH (22:17)
[2018-01-29] MEDS: TRAMADOL 50 MG TABLET PO PRN (06:10)
[2018-01-29] MEDS: LEVOTHYROXINE 88 MCG TABLET PO SCH (06:10)
[2018-01-29] MEDS: NOZIN NASAL SWAB NAS SCH ×3 (06:10→21:01)
[2018-01-29] MEDS: POLYETHYL GLYCOL 3350 17gm PACKET PO SCH (08:09)
[2018-01-29] MEDS: Verapamil SR 120 MG TABLET E.R. PO SCH (08:46)
[2018-01-29] MEDS: ACETAMINOPHEN 325 MG TABLET PO SCH ×4 (08:46→20:00)
[2018-01-29] MEDS: LOSARTAN 50 MG TABLET PO SCH ×2 (08:47→20:00)
--- NOTE | 2018-01-29 09:47 | Pharmacy Consult ---
Pharmacy Consult-Warfarin - Laboratory Information 01/24/18 01/25/18 01/26/18 04:03 04:25 06:36 INR 1.47 H 1.84 H 2.00 H 01/27/18 01/28/18 01/29/18 08:06 06:16 04:44 INR 2.4 2.90 H 2.90 H - Consult Information COUMADIN CONSULT: RB is an 82 yo female who recently had a right total hip replacement. Surgery went well but in the postoperative timeframe she developed paroxysmal atrial fibrillation with rapid ventricular response. She has a long history of paroxysmal atrial fibrillation dating back to 2011. She has been on warfarin in this regard. She has been offered RF ablation procedure in the past but declined that. She developed rapid ventricular response in the postoperative timeframe and was transferred to the intensive care unit. Patient also has stable tricuspid and mitral valve insufficiency. Date INR Dose 01/21 --- 5 mg 01/22 1.26 5 mg 01/23 1.27 6 mg 01/24 1.47 6 mg 01/25 1.84 6 mg 01/26 2.00 6 mg 01/27 2.40 5 mg 01/28 2.90 2.5 mg 01/29 2.90 Plan 2.5 mg I will give another dose of the Warfarin 2.5 mg p.o. today. The Pharmacy will continue to monitor the INR's and adjust the dosage of the Coumadin accordingly. Thanks for the Warfarin Dosing Protocol, Rush Mims, Pharmacist.
[2018-01-29] MEDS: DIGOXIN 125 MCG TABLET PO SCH (10:30)
--- NOTE | 2018-01-29 14:09 | Cardiology Progress Note ---
<Verito Coronado M - Last Filed: 01/30/18 18:54> Subjective Principal diagnosis: hip fx, chronic afib w/RVR episode post op Interval history: Tika is seen in follow up for AFib RVR. She is in the dining room eating breakfast. Her rate is better controlled with addition of Digoxin. She denies dyspnea, chest pain or dizziness. Exam Vital signs: Temperature 98.4 F 01/29/18 08:00 Pulse Rate 98 01/29/18 10:30 Respiratory Rate 16 01/29/18 08:00 Blood Pressure 146/85 H 01/29/18 08:00 Pulse Oximetry 99 01/29/18 08:00 Inpatient Medications: Generic Name Dose Route Start Last Admin Trade Name Freq PRN Reason Stop Dose Admin Acetaminophen 650 mg 01/23/18 17:00 01/29/18 12:17 Tylenol PO 650 mg QID YAKOV Administration Digoxin 125 mcg 01/28/18 14:30 01/29/18 10:30 Lanoxin PO 125 mcg DAILY YAKOV Administration Diphenhydramine HCl 25 mg 01/23/18 16:43 Benadryl PO Q6H PRN Itching Diphenhydramine HCl 25 mg 01/23/18 16:43 Benadryl IVP Q6HR PRN Itching Docusate Sodium 100 mg 01/24/18 09:26 Colace PO BID PRN Isopropyl Alcohol 1 each 01/23/18 22:00 01/29/18 06:10 Nozin Nasal Swab GISELL 1 each 0600,1400,2200 YAKOV Administration Levothyroxine Sodium 88 mcg 01/25/18 06:30 01/29/18 06:10 Synthroid PO 88 mcg ACB YAKOV Administration Lorazepam 1 mg 01/23/18 16:43 Ativan PO HS PRN Sleep Losartan Potassium 50 mg 01/23/18 21:00 01/29/18 08:47 Cozaar PO 50 mg BID YAKOV Administration Metoprolol Tartrate 200 mg 01/27/18 17:45 01/29/18 08:46 Lopressor PO 200 mg BIDWM YAKOV Administration Probiotic Caps - 1 each 01/26/18 12:00 01/29/18 12:18 Lactobacillus PO 1 each DAILY@1200 YAKOV Administration Ondansetron HCl 4 mg 01/23/18 16:43 01/26/18 19:50 Zofran IVP 4 mg Q4H PRN Administration Nausea &/or vomiting Polyethylene Glycol 17 gm 01/24/18 09:00 01/29/18 08:09 Miralax PO Not Given DAILY YAKOV Potassium Chloride 20 meq 01/23/18 17:30 01/29/18 12:18 K-Dur 20 Meq Tablet PO 20 meq TIDWM YAKOV Administration Senna 17.2 mg 01/23/18 21:00 01/28/18 22:17 Senna Lax PO Not Given HS YAKOV Senna 17.2 mg 01/23/18 16:43 Senna Lax PO DAILY PRN Constipation Sodium Chloride 10 ml 01/27/18 20:39 01/28/18 22:51 Iv Flush IV 10 ml PRN PRN Administration Flushing Tramadol HCl 50 - 100 mg 01/23/18 16:43 01/29/18 06:10 Ultram PO 50 mg Q6H PRN Administration Pain Verapamil HCl 240 mg 01/26/18 09:00 01/29/18 08:46 Calan Sr PO 240 mg DAILY YAKOV Administration Warfarin Sodium 0 01/24/18 09:15 Coumadin Protocol NOTE YAKOV Discontinued Medications Generic Name Dose Route Start Last Admin Trade Name Freq PRN Reason Stop Dose Admin Bisacodyl 10 mg 01/23/18 20:00 01/23/18 20:41 Dulcolax RECTALLY 01/23/18 20:01 Not Given DAILY [facility] Digoxin 250 mcg 01/26/18 10:34 Lanoxin PO 01/26/18 10:35 ONE TIME ONE Digoxin 250 mcg 01/25/18 10:34 01/25/18 10:40 Lanoxin PO 01/25/18 10:35 250 mcg ONE TIME ONE Administration Docusate Sodium 100 mg 01/23/18 21:00 01/24/18 08:15 Colace PO 100 mg BID YAKOV Administration Enoxaparin Sodium 70 mg 01/23/18 21:00 01/27/18 08:36 Lovenox SQ 70 mg BID YAKOV Administration Levothyroxine Sodium 112 mcg 01/24/18 06:30 01/24/18 06:14 Synthroid PO Not Given ACB YAKOV Metoprolol Tartrate 50 mg 01/23/18 17:30 01/24/18 08:19 Lopressor PO 50 mg BIDWM YAKOV Administration Metoprolol Tartrate 100 mg 01/24/18 17:30 01/27/18 08:35 Lopressor PO 100 mg BIDWM YAKOV Administration Metoprolol Tartrate 50 mg 01/24/18 08:51 01/24/18 08:57 Lopressor PO 01/24/18 08:52 50 mg O ONE Administration Metoprolol Tartrate 2.5 mg 01/27/18 10:21 01/27/18 10:40 Lopressor IVP 01/27/18 10:22 2.5 mg ONCE ONE Administration Metoprolol Tartrate 150 mg 01/27/18 17:30 01/27/18 17:53 Lopressor PO Not Given BIDWM YAKOV Probiotic Caps - 1 each 01/25/18 13:00 01/25/18 12:33 Lactobacillus PO 1 each DAILY@1300 [facility] Administration Pharmacy Consult 1 each 01/23/18 16:43 Pharmacy Consult - Fall Risk XX 01/23/18 16:44 ONE TIME ONE Verapamil HCl 180 mg 01/24/18 09:00 01/25/18 09:05 Calan Sr PO 180 mg DAILY YAKOV Administration Verapamil HCl 240 mg 01/25/18 14:15 01/25/18 18:21 Calan Sr PO Not Given DAILY YAKOV Verapamil HCl 80 mg 01/25/18 17:00 01/25/18 17:47 Calan PO 01/25/18 17:01 80 mg O ONE Administration Warfarin Sodium 1 each 01/24/18 08:55 01/25/18 08:36 Pharmacy Consult - Warfarin MC 01/24/18 08:56 1 each O ONE Administration Warfarin Sodium 6 mg 01/24/18 12:00 01/24/18 12:24 Coumadin PO 01/24/18 12:30 6 mg NOON YAKOV Administration Warfarin Sodium 6 mg 01/25/18 12:00 01/25/18 12:31 Coumadin PO 01/25/18 13:00 6 mg NOON YAKOV Administration Warfarin Sodium 6 mg 01/26/18 12:00 01/26/18 12:08 Coumadin PO 01/26/18 13:00 6 mg NOON YAKOV Administration Warfarin Sodium 5 mg 01/27/18 12:00 01/27/18 12:24 Coumadin PO 01/27/18 12:30 5 mg NOON YAKOV Administration Warfarin Sodium 2.5 mg 01/28/18 12:00 01/28/18 12:26 Coumadin PO 01/28/18 12:30 2.5 mg NOON [facility] Administration - Constitutional no acute distress, well nourished, cooperative - Routine HEENT Exam Head: Present: normocephalic ENT: Present: mucous membranes moist - Routine Neck Exam Absent: JVD, carotid bruit - Routine Chest/Breast/Axilla Exam Chest wall: Absent: tenderness - Routine Respiratory Exam Present: CTA bilaterally. Absent: rales, wheezes - Routine Cardiovascular Exam Present: no murmur, irregular rhythm. Absent: JVD - Routine Abdominal Exam Present: soft, normoactive bowel sounds - Routine Extremities Exam Present: no edema - Routine Skin Exam Present: intact, dry, warm - Routine Neurological Exam Present: alert, oriented X3 - Routine Psychiatric Exam Present: normal affect, normal thought process - Additional findings Additional findings: Acetaminophen (Tylenol) 650 mg PO QID [facility] Last Admin: 01/29/18 12:17 Dose: 650 mg Digoxin (Lanoxin) 125 mcg PO DAILY [facility] Last Admin: 01/29/18 10:30 Dose: 125 mcg Diphenhydramine HCl (Benadryl) 25 mg PO Q6H PRN PRN Reason: Itching Diphenhydramine HCl (Benadryl) 25 mg IVP Q6HR PRN PRN Reason: Itching Docusate Sodium (Colace) 100 mg PO BID PRN Isopropyl Alcohol (Nozin Nasal Swab) 1 each GISELL 0600,1400,2200 [facility] Last Admin: 01/29/18 06:10 Dose: 1 each Levothyroxine Sodium (Synthroid) 88 mcg PO ACB [facility] Last Admin: 01/29/18 06:10 Dose: 88 mcg Lorazepam (Ativan) 1 mg PO HS PRN PRN Reason: Sleep Losartan Potassium (Cozaar) 50 mg PO BID [facility] Last Admin: 01/29/18 08:47 Dose: 50 mg Metoprolol Tartrate (Lopressor) 200 mg PO BIDWM [facility] Last Admin: 01/29/18 08:46 Dose: 200 mg Probiotic Caps - (Lactobacillus) 1 each PO DAILY@1200 [facility] Last Admin: 01/29/18 12:18 Dose: 1 each Ondansetron HCl (Zofran) 4 mg IVP Q4H PRN PRN Reason: Nausea &/or vomiting Last Admin: 01/26/18 19:50 Dose: 4 mg Polyethylene Glycol (Miralax) 17 gm PO DAILY [facility] Last Admin: 01/29/18 08:09 Dose: Not Given Potassium Chloride (K-Dur 20 Meq Tablet) 20 meq PO TIDWM [facility] Last Admin: 01/29/18 12:18 Dose: 20 meq Senna (Senna Lax) 17.2 mg PO HS [facility] Last Admin: 01/28/18 22:17 Dose: Not Given Senna (Senna Lax) 17.2 mg PO DAILY PRN PRN Reason: Constipation Sodium Chloride (Iv Flush) 10 ml IV PRN PRN PRN Reason: Flushing Last Admin: 01/28/18 22:51 Dose: 10 ml Tramadol HCl (Ultram) 50 - 100 mg PO Q6H PRN PRN Reason: Pain Last Admin: 01/29/18 06:10 Dose: 50 mg Verapamil HCl (Calan Sr) 240 mg PO DAILY [facility] Last Admin: 01/29/18 08:46 Dose: 240 mg Warfarin Sodium (Coumadin Protocol) 0 MC NOTE [facility] Results 01/29/18 04:44 01/29/18 04:44 CBC 01/29/18 Range/Units 04:44 WBC 11.0 (4.5-11.0) T/MM3 RBC 2.66 L (4.00-5.20) M/MM3 Hgb 8.8 L (12-16) GM/DL Hct 26.5 L D (36-46) % Plt Count 343 (130-400) T/MM3 Neut # (Auto) Not performed Lymph # (Auto) Not performed [place] # (Auto) Not performed Eos # (Auto) Not performed Baso # (Auto) Not performed Comprehensive Metabolic Panel 01/29/18 Range/Units 04:44 Sodium 137 (134-144) MEQ/L Potassium 4.8 (3.6-5) MEQ/L Chloride 106 (98-107) MEQ/L Carbon Dioxide 21 L (22-30) MEQ/L BUN 12.0 (7-17) MG/DL Creatinine 0.6 L (0.7-1.2) mg/dL Glucose 91 (65-110) MG/DL Calcium 8.9 (8.4-10.2) MG/DL Intake and Output 01/28/18 01/29/18 01/29/18 22:59 06:59 14:59 Intake Total 190 / 190 100 / 100 790 / 790 Balance 190 / 190 100 / 100 790 / 790 Intake: Oral 190 / 190 100 / 100 790 / 790 Other: Urine Appearance Clear Urine Color Pale Urine Odor Normal # Voids 1 Assessment and Plan - Assessment and Plan (1) Paroxysmal atrial fibrillation Status: Chronic (2) Nonrheumatic mitral valve insufficiency Status: Chronic (3) Non-rheumatic tricuspid valve insufficiency Status: Chronic (4) Essential (primary) hypertension Status: Chronic (5) S/P hip replacement Problem details: 01/21/18 - Dr. Ramon (right). Status: Acute - Assessment and Plan 01/24/18 A FIB: Chronic: Rate control with Metoprolol 100mg po BID - Verapamil 180mg daily for rate control - Coumadin for stroke prevention - Lovenox 1mg/kg until INR therapeutic - EKG please 01/26/18 Chronic afib, pt having runs of rvr. Previously rate controlled prior to transfer to IRU on metoprolol 100mg bid. Since transfer tele shows AFib rates 93-167. Vitals report pluse 70-90's. Verapamil 180mg added 2 days ago. Verapamil increased to 240mg today per attending, agree with plan. Monitor bp with dosage increases. Warfarin therapy for stroke risk reduction, managed per pharmacy. Would anticipate elevated rates with increased activity during PT, will follow along. 01/27/18 Poor rate control today, HR up to 160s - Metoprolol 2.5mg IV X1 - Increase Metoprolol to 200mg BID 01/28/18 Digoxin 125mcg po Daily - Check Digoxin level in 10 days. 01/29/18 Rate controlled with addition of Digoxin. - Continue to monitor cardiac telemetry Hospital Course Summary Disclaimer: The visit summary below is not to be considered part of the above Progress Note. Hospital Course: Plan - 01/24/18: Admit IRU for continued therapies and pain control per Dr. Mondragon for improvement in functional abilities and strength. A-fib with RVR (HR 140-150) on admission. Recent treatment in ICU with esmolol drip with improvement. Drip discontinued 01/22/18. Continue home medications - Cozaar 50mg BID and verapamil SR 180mg daily. Home metoprolol dose was increased from 50mg BID to 100mg BID by cardiology on . Will continue metoprolol 100mg BID. Consult Dr. Lopez for continued cardiac care. Continue to monitor closely on telemetry. History of hypothyroidism. Home Synthroid dose 112mcg daily. TSH on 01/22/18 was low at 0.17. Will decrease Synthroid dose to 88mcg daily and recommend rechecking TSH in 4-6 weeks. Hemoglobin slow trending down since surgery. Currently Hgb 9.0. Continue to monitor periodically. Patient asymptomatic without signs of acute bleeding. Lovenox for DVT prophylaxis and bridge therapy with Coumadin until INR therapeutic - currently INR 1.47. SCDs. Encourage incentive spirometry. Recheck labs on 01/26/18 to monitor blood counts, electrolytes and renal function. Plan - 01/25/18: Patient is improving- participating in therapy. She continues to struggle with an elevated HR- need to reassess labs in AM- anemia may be a part of the uncontrolled HR. Provided Dig x 1 dose only. Noted BB dosing was increased. Give Verapamil IR this evening, and then increase dose of SR to 240mg tomorrow AM. Continue Warfarin/Lovenox. (Consider change to NOAC?). Some mild hyperthyroid- Synthroid decreased. Recheck TSH in a few weeks. Monitor electrolytes. Overall, she is doing well. 01/27/18 A-fib with RVR: Hr 160 (BP stable) during assessment today; RVR persists after verapamil 240 mg and metoprolol 100 mg this am. Verito Coronado APRN ordered metoprolol 2.5 mg IV -- RN assessing response. Metoprolol tartrate increased to 150 mg BID. ABLA - hgb improved to 9.6. Cont to monitor. Electrolytes are stable. Hypothyroidism with low TSH and normal free T4 - Synthroid dose decreased from 112 to 88 mcg. Rt leg ecchymosis and post op swelling. No calf tenderness. INR therapeutic. <Tej Lopez - Last Filed: 02/05/18 12:42> Exam Vital signs: Temperature 97.0 F 01/31/18 07:20 Pulse Rate 138 H 01/31/18 09:54 Respiratory Rate 18 01/31/18 07:20 Blood Pressure 130/82 01/31/18 07:28 Pulse Oximetry 97 01/31/18 07:28 Inpatient Medications: Discontinued Medications Generic Name Dose Route Start Last Admin Trade Name Freq PRN Reason Stop Dose Admin Acetaminophen 650 mg 01/23/18 17:00 01/31/18 08:17 Tylenol PO 650 mg QID YAKOV Administration Bisacodyl 10 mg 01/23/18 20:00 01/23/18 20:41 Dulcolax RECTALLY 01/23/18 20:01 Not Given DAILY YAKOV Digoxin 250 mcg 01/26/18 10:34 Lanoxin PO 01/26/18 10:35 ONE TIME ONE Digoxin 250 mcg 01/25/18 10:34 01/25/18 10:40 Lanoxin PO 01/25/18 10:35 250 mcg ONE TIME ONE Administration Digoxin 125 mcg 01/28/18 14:30 01/31/18 08:14 Lanoxin PO 125 mcg DAILY YAKOV Administration Digoxin 125 mcg 01/30/18 09:52 01/30/18 09:58 Lanoxin PO 01/30/18 09:53 125 mcg O ONE Administration Diphenhydramine HCl 25 mg 01/23/18 16:43 Benadryl PO Q6H PRN Itching Diphenhydramine HCl 25 mg 01/23/18 16:43 Benadryl IVP Q6HR PRN Itching Docusate Sodium 100 mg 01/23/18 21:00 01/24/18 08:15 Colace PO 100 mg BID YAKOV Administration Docusate Sodium 100 mg 01/24/18 09:26 Colace PO BID PRN Enoxaparin Sodium 70 mg 01/23/18 21:00 01/27/18 08:36 Lovenox SQ 70 mg BID YAKOV Administration Furosemide 40 mg 01/30/18 15:45 01/31/18 08:17 Lasix 40 Mg Tab PO 40 mg DAILY YAKOV Administration Isopropyl Alcohol 1 each 01/23/18 22:00 01/31/18 08:07 Nozin Nasal Swab GISELL Not Given 0600,1400,2200 YAKOV Levothyroxine Sodium 112 mcg 01/24/18 06:30 01/24/18 06:14 Synthroid PO Not Given ACB YAKOV Levothyroxine Sodium 88 mcg 01/25/18 06:30 01/31/18 05:30 Synthroid PO 88 mcg ACB YAKOV Administration Lorazepam 1 mg 01/23/18 16:43 Ativan PO HS PRN Sleep Losartan Potassium 50 mg 01/23/18 21:00 01/31/18 08:14 Cozaar PO 50 mg BID YAKOV Administration Metoprolol Tartrate 50 mg 01/23/18 17:30 01/24/18 08:19 Lopressor PO 50 mg BIDWM YAKOV Administration Metoprolol Tartrate 100 mg 01/24/18 17:30 01/27/18 08:35 Lopressor PO 100 mg BIDWM YAKOV Administration Metoprolol Tartrate 50 mg 01/24/18 08:51 01/24/18 08:57 Lopressor PO 01/24/18 08:52 50 mg O ONE Administration Metoprolol Tartrate 2.5 mg 01/27/18 10:21 01/27/18 10:40 Lopressor IVP 01/27/18 10:22 2.5 mg ONCE ONE Administration Metoprolol Tartrate 150 mg 01/27/18 17:30 01/27/18 17:53 Lopressor PO Not Given BIDWM YAKOV Metoprolol Tartrate 200 mg 01/27/18 17:45 01/31/18 08:13 Lopressor PO 200 mg BIDWM YAKOV Administration Probiotic Caps - 1 each 01/25/18 13:00 01/25/18 12:33 Lactobacillus PO 1 each DAILY@1300 YAKOV Administration Probiotic Caps - 1 each 01/26/18 12:00 01/30/18 12:18 Lactobacillus PO 1 each DAILY@1200 YAKOV Administration Ondansetron HCl 4 mg 01/23/18 16:43 01/30/18 18:18 Zofran IVP 4 mg Q4H PRN Administration Nausea &/or vomiting Pharmacy Consult 1 each 01/23/18 16:43 Pharmacy Consult - Fall Risk XX 01/23/18 16:44 ONE TIME ONE Polyethylene Glycol 17 gm 01/24/18 09:00 01/31/18 09:56 Miralax PO Not Given DAILY YAKOV Potassium Chloride 20 meq 01/23/18 17:30 01/31/18 08:14 K-Dur 20 Meq Tablet PO 20 meq TIDWM YAKOV Administration Potassium Chloride 20 meq 01/30/18 15:35 01/30/18 16:02 K-Dur 20 Meq Tablet PO 01/30/18 15:36 20 meq O ONE Administration Potassium Chloride 20 meq 01/31/18 08:00 K-Dur 20 Meq Tablet PO WB [facility] Senna 17.2 mg 01/23/18 21:00 01/30/18 20:22 Senna Lax PO Not Given [facility] Senna 17.2 mg 01/23/18 16:43 Senna Lax PO DAILY PRN Constipation Sodium Chloride 10 ml 01/27/18 20:39 01/30/18 20:23 Iv Flush IV 10 ml PRN PRN Administration Flushing Tramadol HCl 50 - 100 mg 01/23/18 16:43 01/31/18 08:26 Ultram PO 50 mg Q6H PRN Administration Pain Verapamil HCl 180 mg 01/24/18 09:00 01/25/18 09:05 Calan Sr PO 180 mg DAILY [facility] Administration Verapamil HCl 240 mg 01/25/18 14:15 01/25/18 18:21 Calan Sr PO Not Given DAILY [facility] Verapamil HCl 80 mg 01/25/18 17:00 01/25/18 17:47 Calan PO 01/25/18 17:01 80 mg O ONE Administration Verapamil HCl 240 mg 01/26/18 09:00 01/31/18 08:16 Calan Sr PO 240 mg DAILY [facility] Administration Warfarin Sodium 1 each 01/24/18 08:55 01/25/18 08:36 Pharmacy Consult - Warfarin 01/24/18 08:56 1 each O ONE Administration Warfarin Sodium 0 01/24/18 09:15 Coumadin Protocol NOTE YAKOV Warfarin Sodium 6 mg 01/24/18 12:00 01/24/18 12:24 Coumadin PO 01/24/18 12:30 6 mg NOON YAKOV Administration Warfarin Sodium 6 mg 01/25/18 12:00 01/25/18 12:31 Coumadin PO 01/25/18 13:00 6 mg NOON YAKOV Administration Warfarin Sodium 6 mg 01/26/18 12:00 01/26/18 12:08 Coumadin PO 01/26/18 13:00 6 mg NOON YAKOV Administration Warfarin Sodium 5 mg 01/27/18 12:00 01/27/18 12:24 Coumadin PO 01/27/18 12:30 5 mg NOON YAKOV Administration Warfarin Sodium 2.5 mg 01/28/18 12:00 01/28/18 12:26 Coumadin PO 01/28/18 12:30 2.5 mg NOON YAKOV Administration Warfarin Sodium 3 mg 01/30/18 12:00 01/30/18 12:18 Coumadin PO 01/30/18 12:30 3 mg NOON [facility] Administration Warfarin Sodium 4 mg 01/31/18 12:00 Coumadin PO 01/31/18 12:15 NOON YAKOV Results 01/31/18 04:13 01/31/18 04:13 Assessment and Plan - Assessment and Plan (1) Paroxysmal atrial fibrillation Status: Chronic (2) Nonrheumatic mitral valve insufficiency Status: Chronic (3) Non-rheumatic tricuspid valve insufficiency Status: Chronic (4) Essential (primary) hypertension Status: Chronic (5) S/P hip replacement Problem details: 01/21/18 - Dr. Ramon (right). Status: Acute - Attestation Attestation Narrative: 02/05/18 12:42 Recommendation After examining the patient I agree with the above assessment. I am involved in the formulation of the patient's plan of care. Hospital Course Summary Disclaimer: The visit summary below is not to be considered part of the above Progress Note.
[2018-01-29] MEDS: SALINE FLUSH 10ml SYRINGE IV PRN (19:56)
[2018-01-29] MEDS: SENNOSIDES 8.6 MG TABLET PO SCH (20:01)
[2018-01-30] MEDS: LEVOTHYROXINE 88 MCG TABLET PO SCH (05:54)
[2018-01-30] MEDS: TRAMADOL 50 MG TABLET PO PRN (05:54)
[2018-01-30] MEDS: NOZIN NASAL SWAB NAS SCH ×3 (05:56→20:23)
--- NOTE | 2018-01-30 08:19 | Pharmacy Consult ---
Pharmacy Consult-Warfarin - Laboratory Information 01/24/18 01/25/18 01/26/18 04:03 04:25 06:36 INR 1.47 H 1.84 H 2.00 H 01/27/18 01/28/18 01/29/18 08:06 06:16 04:44 INR 2.4 2.90 H 2.90 H 01/30/18 04:07 INR 2.30 H - Consult Information We will plan to give 3mg of warfarin p.o. today at noon. Thanks
[2018-01-30] MEDS: ACETAMINOPHEN 325 MG TABLET PO SCH ×4 (08:53→20:22)
[2018-01-30] MEDS: DIGOXIN 125 MCG TABLET PO SCH (08:54)
[2018-01-30] MEDS: LOSARTAN 50 MG TABLET PO SCH ×2 (08:56→20:22)
[2018-01-30] MEDS: POLYETHYL GLYCOL 3350 17gm PACKET PO SCH (08:56)
[2018-01-30] MEDS: Verapamil SR 120 MG TABLET E.R. PO SCH (08:56)
[2018-01-30] MEDS ORDERED: DIGOXIN 125 MCG TABLET PO ONE (09:52)
--- NOTE | 2018-01-30 10:43 | IRU Progress Note ---
- Subjective/Serverity of Illness Date: 01/30/18 Tika reports that her pain is better controlled. She was able to walk to the dining area with minimal if any discomfort in the right hip. Continues to have just a bit of edema on the right side but nothing major. Inspection of the right hip indicates no drainage at present. She does have easy fatigability. She has continued to struggle with elevated heart rate despite metoprolol 200 mg twice daily plus verapamil 240 mg daily. Digoxin was begun. She really is unable to sense when her heart rate is up. Because it has remained elevated even on fairly good doses of the calcium channel maykel and beta maykel, digoxin is being increased by cardiology. She denies any nausea or vomiting. She and her son state that she feels confident going home tomorrow. Exam Vital Signs: Temperature 97.3 F 01/30/18 08:00 Pulse Rate 118 H 01/30/18 09:58 Respiratory Rate 16 01/30/18 08:00 Blood Pressure 161/89 H 01/30/18 08:00 Pulse Oximetry 97 01/30/18 08:00 Height/Weight/BMI: Height 1.65 m Weight 77.5 kg Body Mass Index 29.6 - Constitutional Present: no acute distress, well nourished, well developed, cooperative - Routine HEENT Exam Head: Present: normocephalic Eye: Present: EOMI ENT: Present: mucous membranes moist, oropharynx clear - Routine Neck Exam Present: supple - Routine Respiratory Exam Present: CTA bilaterally. Absent: respiratory distress, wheezes, crackles - Routine Cardiovascular Exam Present: S1, S2, irregularly irregular. Absent: murmur - Routine Abdominal Exam Present: soft, normoactive bowel sounds, non distended. Absent: tenderness - Routine Extremities Exam Present: edema (trace to 1+ edema right lower extremity. No edema and left lower extremity.), normal capillary refill. Absent: cyanosis, clubbing - Routine Skin Exam Present: dry, warm - Routine Neurological Exam Present: alert, oriented X3, CN II-XII intact - Routine Psychiatric Exam Present: normal affect, cooperative Results IRU - Labs Labs: Have reviewed all labs, vital signs and other providers notes. Has been seen by cardiology. IRU A/P (1) S/P hip replacement Qualifiers: Laterality: right Qualified Code(s): Z96.641 - Presence of right artificial hip joint Problem details: 01/21/18 - Dr. Ramon (right). Current visit: Yes Status: Acute Pain management is improved. Able to ambulate further and without much discomfort. (2) Paroxysmal atrial fibrillation Current visit: Yes Status: Chronic At this point her atrial fibrillation appears to be more chronic than paroxysmal. Difficulty with rate management despite hefty doses of metoprolol plus verapamil. Digoxin has been started. Management per cardiology. Patient is relatively asymptomatic although does have easy fatigability which may well be from the metoprolol. (3) Nonrheumatic mitral valve insufficiency Current visit: No Status: Chronic (4) Non-rheumatic tricuspid valve insufficiency Current visit: No Status: Chronic (5) Essential (primary) hypertension Current visit: No Status: Chronic Blood pressure controlled for the most part. Occasional elevated values despite hefty doses of beta maykel and calcium channel maykel. DVT Prophylaxis: Coumadin Resuscitation Status: Do Not Resuscitate - Course Hospital Course: Hoang Mondragon MD: 01/24/18 11:27 Getting started with therapy and appears to be participatory. Reports pain adequately controlled in the hip. Atrial fib with occasional responses up to 133, asymptomatic. Denies dyspnea. 01/27/18 10:31 She does develop some loose stools. C. difficile is pending. Continues to have rapid ventricular response with her atrial fibrillation. Verapamil has been increased area Blood pressures a bit elevated. Complains of fatigue but no dyspnea. 01/28/18 10:43 Loose stools abating. She reports firm stools at present. Easy fatigability. Metoprolol increased to 200 mg twice daily. RVR a bit improved at 100-120. 01/30/18 10:43 Digoxin increased. Ventricular rate remains above 100 much of the time. Continues to have easy fatigability. No dyspnea. Pain improved. - Interventions to Obtain Goals PT Treatment Plan: Balance/Proprioception, Functional Activities, Manual Therapy , Patient/Family Education, Therapeutic Exercise OT Treatment Plan: ADL (Basic Care), Balance Training, IADL, Pt./Family Education, Ther. Exercise for ADL Goals Progress/Modifications: Anticipate safe dismissal tomorrow. Pain improved.
[2018-01-30] MEDS: SALINE FLUSH 10ml SYRINGE IV PRN ×3 (10:59→20:23)
[2018-01-30] MEDS ORDERED: WARFARIN 3 MG TABLET PO SCH (12:00)
--- NOTE | 2018-01-30 15:16 | Progress Note ---
- Date 01/30/18 Subjective: Patient seen sitting in her chair this afternoon. She reports she feels SOA and overwhelmingly fatigued since lunch today. States she felt the same way yesterday after lunch. No CP, no cough. Her meds have been adjusted d/t her consistently elevated HR. Objective Vital signs: Temperature 97.3 F 01/30/18 08:00 Pulse Rate 69 01/30/18 14:49 Respiratory Rate 16 01/30/18 08:00 Blood Pressure 96/60 01/30/18 14:49 Pulse Oximetry 100 01/30/18 14:49 Rhythm: Atrial Fibrillation with RVR Height/Weight/BMI: Height 1.65 m Weight 77.5 kg Body Mass Index 29.6 - Constitutional Present: no acute distress, well nourished, well developed - Routine HEENT Exam Head: Present: normocephalic, atraumatic - Routine Respiratory Exam Present: CTA bilaterally. Absent: wheezes - Routine Cardiovascular Exam Present: RRR - Routine Abdominal Exam Present: soft, non distended, non tender - Routine Extremities Exam Present: no edema, normal capillary refill - Routine Skin Exam Present: dry, warm - Routine Neurological Exam appears very tired - Routine Lymphatic Exam Lymphatic: Absent: adenopathy - Routine Psychiatric Exam Present: normal affect, cooperative Results - Labs CBC & Chem 7: 01/29/18 04:44 01/29/18 04:44 Assessment and Plan (1) Paroxysmal atrial fibrillation Current visit: Yes Status: Chronic (2) Nonrheumatic mitral valve insufficiency Current visit: No Status: Chronic (3) Non-rheumatic tricuspid valve insufficiency Current visit: No Status: Chronic (4) S/P hip replacement Problem details: 01/21/18 - Dr. Ramon (right). Current visit: Yes Status: Acute Assessment and Plan: Assessment: S/P right hip arthroplasty - 01/21/18, Dr. Ramon. Generalized debility and gait instability secondary to recent surgery. Paroxysmal a-rib with RVR. Acute blood loss anemia. Hypothyroidism - currently on Synthroid (currently over-replaced). Hypertension. Nonrheumatic mitral and tricuspid insufficiency. Chronic anticoagulation on warfarin. Osteoarthritis. Cataracts. History of hypokalemia- resolved. History of cardioversion - 06/20/15, Dr. Lopez. Plan Her metoprolol and verapamil have recently been increased and she was recently started on digoxin. Discussed her sxs and hypotension this afternoon with Verito Coronado APRN. She will check dig in the am and will f-u with pt. Suspect the high dose of metoprolol is contributing to her fatigue. Recommend holding off on therapy this afternoon given her hypotension. She c/o lightheadedness with standing. Will check orthostatic BP's. CBC, CMP in am. Hypothyroidism with low TSH and normal free T4 - Synthroid dose decreased from 112 to 88 mcg. Follow hgb - trending down. (8.8 today) Discussed warfarin dosing with pharmacy --recommending home on 3mg qd with repeat INR within a week (if she is dismissed tomorrow) 01/30/2018-6 PM-I reviewed this chart, the patient history, and the [employer]'s/PA's documented findings as above. We discussed and formulated the assessment and plan as above with the additions below.-Dr. Arevalo Patient was seen earlier this evening in her room. She was feeling a little bit better but not well enough to go eat supper. She complains of some mild nausea which was worse after receiving potassium. Orthostatics were done later this afternoon and showed no significant drop in blood pressure. She denies any pain currently. She states she had a good bowel movement today. Exam she is alert and in no acute distress. Chest is clear to auscultation. Cardiovascular reveals a regular rate and rhythm. Abdomen is soft and nontender. Extremities are free of edema. Impression and plan Hypotension with lightheadedness earlier today. Blood pressure improved on orthostatics later this afternoon. Beta maykel is currently on hold. We'll check a hemoglobin now. Will check CBC and CMP tomorrow.. - Physician Narrative Narrative: Date: 01/30/18 Time: 1513 Hospital Course Summary Disclaimer: The visit summary below is not to be considered part of the above Progress Note. Hospital Course: Plan - 01/24/18: Admit IRU for continued therapies and pain control per Dr. Mondragon for improvement in functional abilities and strength. A-fib with RVR (HR 140-150) on admission. Recent treatment in ICU with esmolol drip with improvement. Drip discontinued 01/22/18. Continue home medications - Cozaar 50mg BID and verapamil SR 180mg daily. Home metoprolol dose was increased from 50mg BID to 100mg BID by cardiology on . Will continue metoprolol 100mg BID. Consult Dr. Lopez for continued cardiac care. Continue to monitor closely on telemetry. History of hypothyroidism. Home Synthroid dose 112mcg daily. TSH on 01/22/18 was low at 0.17. Will decrease Synthroid dose to 88mcg daily and recommend rechecking TSH in 4-6 weeks. Hemoglobin slow trending down since surgery. Currently Hgb 9.0. Continue to monitor periodically. Patient asymptomatic without signs of acute bleeding. Lovenox for DVT prophylaxis and bridge therapy with Coumadin until INR therapeutic - currently INR 1.47. SCDs. Encourage incentive spirometry. Recheck labs on 01/26/18 to monitor blood counts, electrolytes and renal function. Plan - 01/25/18: Patient is improving- participating in therapy. She continues to struggle with an elevated HR- need to reassess labs in AM- anemia may be a part of the uncontrolled HR. Provided Dig x 1 dose only. Noted BB dosing was increased. Give Verapamil IR this evening, and then increase dose of SR to 240mg tomorrow AM. Continue Warfarin/Lovenox. (Consider change to NOAC?). Some mild hyperthyroid- Synthroid decreased. Recheck TSH in a few weeks. Monitor electrolytes. Overall, she is doing well. 01/27/18 A-fib with RVR: Hr 160 (BP stable) during assessment today; RVR persists after verapamil 240 mg and metoprolol 100 mg this am. Verito Coronado APRN ordered metoprolol 2.5 mg IV -- RN assessing response. Metoprolol tartrate increased to 150 mg BID. ABLA - hgb improved to 9.6. Cont to monitor. Electrolytes are stable. Hypothyroidism with low TSH and normal free T4 - Synthroid dose decreased from 112 to 88 mcg. Rt leg ecchymosis and post op swelling. No calf tenderness. INR therapeutic.
[2018-01-30] MEDS: FUROSEMIDE 40 MG TABLET PO SCH (16:02)
--- NOTE | 2018-01-30 16:04 | XRay Report ---
Indication: JVD PROCEDURE: XR chest 1V: Encounter: Initial Comparison: October 28, 2016 Findings: The lungs are stable in appearance without new focal airspace consolidation. Emphysema. There is no pleural effusion or pneumothorax. The cardiac silhouette remains moderately enlarged. The pulmonary vascularity and mediastinal contours are unchanged. IMPRESSION: Stable appearance of the chest without acute cardiopulmonary disease. .
[2018-01-30] MEDS: ONDANSETRON 4 MG/2 ML INJECTION IVP PRN (18:18)
--- NOTE | 2018-01-30 18:57 | Cardiology Progress Note ---
<Verito Coronado M - Last Filed: 01/30/18 18:54> Subjective Principal diagnosis: hip fx, chronic afib w/RVR episode post op Interval history: Tika is seen in follow up for AFib RVR. She is in the recliner in her room, states she is worn out from therapy today. She denies dyspnea, chest pain or dizziness. Exam Vital signs: Temperature 96.7 F L 01/30/18 16:00 Pulse Rate 86 01/30/18 16:41 Respiratory Rate 14 01/30/18 16:02 Blood Pressure 119/65 01/30/18 16:41 Pulse Oximetry 99 01/30/18 16:41 Inpatient Medications: Generic Name Dose Route Start Last Admin Trade Name Freq PRN Reason Stop Dose Admin Acetaminophen 650 mg 01/23/18 17:00 01/30/18 17:00 Tylenol PO 650 mg QID YAKOV Administration Digoxin 125 mcg 01/28/18 14:30 01/30/18 08:54 Lanoxin PO 125 mcg DAILY YAKOV Administration Diphenhydramine HCl 25 mg 01/23/18 16:43 Benadryl PO Q6H PRN Itching Diphenhydramine HCl 25 mg 01/23/18 16:43 Benadryl IVP Q6HR PRN Itching Docusate Sodium 100 mg 01/24/18 09:26 Colace PO BID PRN Furosemide 40 mg 01/30/18 15:45 01/30/18 16:02 Lasix 40 Mg Tab PO 40 mg DAILY YAKOV Administration Isopropyl Alcohol 1 each 01/23/18 22:00 01/30/18 15:19 Nozin Nasal Swab GISELL 1 each 0600,1400,2200 YAKOV Administration Levothyroxine Sodium 88 mcg 01/25/18 06:30 01/30/18 05:54 Synthroid PO 88 mcg ACB YAKOV Administration Lorazepam 1 mg 01/23/18 16:43 Ativan PO HS PRN Sleep Losartan Potassium 50 mg 01/23/18 21:00 01/30/18 08:56 Cozaar PO 50 mg BID YAKOV Administration Metoprolol Tartrate 200 mg 01/27/18 17:45 01/30/18 17:00 Lopressor PO Not Given BIDWM YAKOV Probiotic Caps - 1 each 01/26/18 12:00 01/30/18 12:18 Lactobacillus PO 1 each DAILY@1200 YAKOV Administration Ondansetron HCl 4 mg 01/23/18 16:43 01/30/18 18:18 Zofran IVP 4 mg Q4H PRN Administration Nausea &/or vomiting Polyethylene Glycol 17 gm 01/24/18 09:00 01/30/18 08:56 Miralax PO 17 gm DAILY YAKOV Administration Potassium Chloride 20 meq 01/23/18 17:30 01/30/18 17:00 K-Dur 20 Meq Tablet PO 20 meq TIDWM YAKOV Administration Senna 17.2 mg 01/23/18 21:00 01/29/18 20:01 Senna Lax PO Not Given HS [facility] Senna 17.2 mg 01/23/18 16:43 Senna Lax PO DAILY PRN Constipation Sodium Chloride 10 ml 01/27/18 20:39 01/30/18 18:18 Iv Flush IV 10 ml PRN PRN Administration Flushing Tramadol HCl 50 - 100 mg 01/23/18 16:43 01/30/18 05:54 Ultram PO 50 mg Q6H PRN Administration Pain Verapamil HCl 240 mg 01/26/18 09:00 01/30/18 08:56 Calan Sr PO 240 mg DAILY [facility] Administration Warfarin Sodium 0 01/24/18 09:15 Coumadin Protocol NOTE YAKOV Discontinued Medications Generic Name Dose Route Start Last Admin Trade Name Freq PRN Reason Stop Dose Admin Bisacodyl 10 mg 01/23/18 20:00 01/23/18 20:41 Dulcolax RECTALLY 01/23/18 20:01 Not Given DAILY [facility] Digoxin 250 mcg 01/26/18 10:34 Lanoxin PO 01/26/18 10:35 ONE TIME ONE Digoxin 250 mcg 01/25/18 10:34 01/25/18 10:40 Lanoxin PO 01/25/18 10:35 250 mcg ONE TIME ONE Administration Digoxin 125 mcg 01/30/18 09:52 01/30/18 09:58 Lanoxin PO 01/30/18 09:53 125 mcg O ONE Administration Docusate Sodium 100 mg 01/23/18 21:00 01/24/18 08:15 Colace PO 100 mg BID YAKOV Administration Enoxaparin Sodium 70 mg 01/23/18 21:00 01/27/18 08:36 Lovenox SQ 70 mg BID [facility] Administration Levothyroxine Sodium 112 mcg 01/24/18 06:30 01/24/18 06:14 Synthroid PO Not Given ACB YAKOV Metoprolol Tartrate 50 mg 01/23/18 17:30 01/24/18 08:19 Lopressor PO 50 mg BIDWM YAKOV Administration Metoprolol Tartrate 100 mg 01/24/18 17:30 01/27/18 08:35 Lopressor PO 100 mg BIDWM YAKOV Administration Metoprolol Tartrate 50 mg 01/24/18 08:51 01/24/18 08:57 Lopressor PO 01/24/18 08:52 50 mg O ONE Administration Metoprolol Tartrate 2.5 mg 01/27/18 10:21 01/27/18 10:40 Lopressor IVP 01/27/18 10:22 2.5 mg ONCE ONE Administration Metoprolol Tartrate 150 mg 01/27/18 17:30 01/27/18 17:53 Lopressor PO Not Given BIDWM YAKOV Probiotic Caps - 1 each 01/25/18 13:00 01/25/18 12:33 Lactobacillus PO 1 each DAILY@1300 [facility] Administration Pharmacy Consult 1 each 01/23/18 16:43 Pharmacy Consult - Fall Risk XX 01/23/18 16:44 ONE TIME ONE Potassium Chloride 20 meq 01/30/18 15:35 01/30/18 16:02 K-Dur 20 Meq Tablet PO 01/30/18 15:36 20 meq O ONE Administration Potassium Chloride 20 meq 01/31/18 08:00 K-Dur 20 Meq Tablet PO WB YAKOV Verapamil HCl 180 mg 01/24/18 09:00 01/25/18 09:05 Calan Sr PO 180 mg DAILY YAKOV Administration Verapamil HCl 240 mg 01/25/18 14:15 01/25/18 18:21 Calan Sr PO Not Given DAILY YAKOV Verapamil HCl 80 mg 01/25/18 17:00 01/25/18 17:47 Calan PO 01/25/18 17:01 80 mg O ONE Administration Warfarin Sodium 1 each 01/24/18 08:55 01/25/18 08:36 Pharmacy Consult - Warfarin MC 01/24/18 08:56 1 each O ONE Administration Warfarin Sodium 6 mg 01/24/18 12:00 01/24/18 12:24 Coumadin PO 01/24/18 12:30 6 mg NOON YAKOV Administration Warfarin Sodium 6 mg 01/25/18 12:00 01/25/18 12:31 Coumadin PO 01/25/18 13:00 6 mg NOON YAKOV Administration Warfarin Sodium 6 mg 01/26/18 12:00 01/26/18 12:08 Coumadin PO 01/26/18 13:00 6 mg NOON YAKOV Administration Warfarin Sodium 5 mg 01/27/18 12:00 01/27/18 12:24 Coumadin PO 01/27/18 12:30 5 mg NOON YAKOV Administration Warfarin Sodium 2.5 mg 01/28/18 12:00 01/28/18 12:26 Coumadin PO 01/28/18 12:30 2.5 mg NOON YAKOV Administration Warfarin Sodium 3 mg 01/30/18 12:00 01/30/18 12:18 Coumadin PO 01/30/18 12:30 3 mg NOON YAKOV Administration - Constitutional no acute distress, well nourished, cooperative - Routine HEENT Exam Head: Present: normocephalic ENT: Present: mucous membranes moist - Routine Neck Exam Present: JVD. Absent: carotid bruit - Routine Chest/Breast/Axilla Exam Chest wall: Absent: tenderness - Routine Respiratory Exam Present: CTA bilaterally. Absent: dyspnea, respiratory distress - Routine Cardiovascular Exam Present: no murmur, irregular rhythm - Routine Abdominal Exam Present: soft, normoactive bowel sounds - Routine Extremities Exam Present: edema - Routine Skin Exam Present: intact, dry, warm, ecchymosis (right leg) - Routine Neurological Exam Present: alert, oriented X3 - Routine Psychiatric Exam Present: normal affect, normal thought process - Additional findings Additional findings: Acetaminophen (Tylenol) 650 mg PO QID [facility] Last Admin: 01/30/18 17:00 Dose: 650 mg Digoxin (Lanoxin) 125 mcg PO DAILY [facility] Last Admin: 01/30/18 08:54 Dose: 125 mcg Diphenhydramine HCl (Benadryl) 25 mg PO Q6H PRN PRN Reason: Itching Diphenhydramine HCl (Benadryl) 25 mg IVP Q6HR PRN PRN Reason: Itching Docusate Sodium (Colace) 100 mg PO BID PRN Furosemide (Lasix 40 Mg Tab) 40 mg PO DAILY [facility] Last Admin: 01/30/18 16:02 Dose: 40 mg Isopropyl Alcohol (Nozin Nasal Swab) 1 each GISELL 0600,1400,2200 [facility] Last Admin: 01/30/18 15:19 Dose: 1 each Levothyroxine Sodium (Synthroid) 88 mcg PO ACB [facility] Last Admin: 01/30/18 05:54 Dose: 88 mcg Lorazepam (Ativan) 1 mg PO HS PRN PRN Reason: Sleep Losartan Potassium (Cozaar) 50 mg PO BID [facility] Last Admin: 01/30/18 08:56 Dose: 50 mg Metoprolol Tartrate (Lopressor) 200 mg PO BIDWM [facility] Last Admin: 01/30/18 17:00 Dose: Not Given Probiotic Caps - (Lactobacillus) 1 each PO DAILY@1200 [facility] Last Admin: 01/30/18 12:18 Dose: 1 each Ondansetron HCl (Zofran) 4 mg IVP Q4H PRN PRN Reason: Nausea &/or vomiting Last Admin: 01/30/18 18:18 Dose: 4 mg Polyethylene Glycol (Miralax) 17 gm PO DAILY [facility] Last Admin: 01/30/18 08:56 Dose: 17 gm Potassium Chloride (K-Dur 20 Meq Tablet) 20 meq PO TIDWM [facility] Last Admin: 01/30/18 17:00 Dose: 20 meq Senna (Senna Lax) 17.2 mg PO HS [facility] Last Admin: 01/29/18 20:01 Dose: Not Given Senna (Senna Lax) 17.2 mg PO DAILY PRN PRN Reason: Constipation Sodium Chloride (Iv Flush) 10 ml IV PRN PRN PRN Reason: Flushing Last Admin: 01/30/18 18:18 Dose: 10 ml Tramadol HCl (Ultram) 50 - 100 mg PO Q6H PRN PRN Reason: Pain Last Admin: 01/30/18 05:54 Dose: 50 mg Verapamil HCl (Calan Sr) 240 mg PO DAILY [facility] Last Admin: 01/30/18 08:56 Dose: 240 mg Warfarin Sodium (Coumadin Protocol) 0 MC NOTE [facility] Results 01/29/18 04:44 01/29/18 04:44 Intake and Output 01/30/18 01/30/18 01/30/18 06:59 14:59 22:59 Intake Total 480 / 480 Balance 480 / 480 Intake: Oral 480 / 480 Other: Urine Appearance Clear Urine Color Yellow Pale Stool Color Brown Stool Consistency Soft Size of Bowel Movement Moderate # Voids 1 1 # Bowel Movements 1 1 Weight 170 lb 13.732 oz - Imaging and Cardiology Imaging & Cardiology Narrative: Date of Exam: 01/30/18 Ordering Provider: Verito Coroando APRN Type of Exam(s): XR chest 1V Reason for Exam(s): JVD Indication: JVD PROCEDURE: XR chest 1V: Encounter: Initial Comparison: October 28, 2016 Findings: The lungs are stable in appearance without new focal airspace consolidation. Emphysema. There is no pleural effusion or pneumothorax. The cardiac silhouette remains moderately enlarged. The pulmonary vascularity and mediastinal contours are unchanged. IMPRESSION: Stable appearance of the chest without acute cardiopulmonary disease. 01/30/18 18:56 Assessment and Plan - Assessment and Plan (1) Paroxysmal atrial fibrillation Status: Chronic (2) Nonrheumatic mitral valve insufficiency Status: Chronic (3) Non-rheumatic tricuspid valve insufficiency Status: Chronic (4) Essential (primary) hypertension Status: Chronic (5) S/P hip replacement Problem details: 01/21/18 - Dr. Ramon (right). Status: Acute - Assessment and Plan 01/24/18 A FIB: Chronic: Rate control with Metoprolol 100mg po BID - Verapamil 180mg daily for rate control - Coumadin for stroke prevention - Lovenox 1mg/kg until INR therapeutic - EKG please 01/26/18 Chronic afib, pt having runs of rvr. Previously rate controlled prior to transfer to IRU on metoprolol 100mg bid. Since transfer tele shows AFib rates 93-167. Vitals report pluse 70-90's. Verapamil 180mg added 2 days ago. Verapamil increased to 240mg today per attending, agree with plan. Monitor bp with dosage increases. Warfarin therapy for stroke risk reduction, managed per pharmacy. Would anticipate elevated rates with increased activity during PT, will follow along. 01/27/18 Poor rate control today, HR up to 160s - Metoprolol 2.5mg IV X1 - Increase Metoprolol to 200mg BID 01/28/18 Digoxin 125mcg po Daily - Check Digoxin level in 10 days. 01/29/18 Rate controlled with addition of Digoxin. - Continue to monitor cardiac telemetry 01/30/18 Rate uncontrolled this am , Increased Digoxin to 250mcg, check Digoxin level in am - Has JVD, Diurese with Lasix 40mg po daily and replace K+ - CXR now - BNP in am Hospital Course Summary Disclaimer: The visit summary below is not to be considered part of the above Progress Note. Hospital Course: Plan - 01/24/18: Admit IRU for continued therapies and pain control per Dr. Mondragon for improvement in functional abilities and strength. A-fib with RVR (HR 140-150) on admission. Recent treatment in ICU with esmolol drip with improvement. Drip discontinued 01/22/18. Continue home medications - Cozaar 50mg BID and verapamil SR 180mg daily. Home metoprolol dose was increased from 50mg BID to 100mg BID by cardiology on . Will continue metoprolol 100mg BID. Consult Dr. Lopez for continued cardiac care. Continue to monitor closely on telemetry. History of hypothyroidism. Home Synthroid dose 112mcg daily. TSH on 01/22/18 was low at 0.17. Will decrease Synthroid dose to 88mcg daily and recommend rechecking TSH in 4-6 weeks. Hemoglobin slow trending down since surgery. Currently Hgb 9.0. Continue to monitor periodically. Patient asymptomatic without signs of acute bleeding. Lovenox for DVT prophylaxis and bridge therapy with Coumadin until INR therapeutic - currently INR 1.47. SCDs. Encourage incentive spirometry. Recheck labs on 01/26/18 to monitor blood counts, electrolytes and renal function. Plan - 01/25/18: Patient is improving- participating in therapy. She continues to struggle with an elevated HR- need to reassess labs in AM- anemia may be a part of the uncontrolled HR. Provided Dig x 1 dose only. Noted BB dosing was increased. Give Verapamil IR this evening, and then increase dose of SR to 240mg tomorrow AM. Continue Warfarin/Lovenox. (Consider change to NOAC?). Some mild hyperthyroid- Synthroid decreased. Recheck TSH in a few weeks. Monitor electrolytes. Overall, she is doing well. 01/27/18 A-fib with RVR: Hr 160 (BP stable) during assessment today; RVR persists after verapamil 240 mg and metoprolol 100 mg this am. Verito Coronado APRN ordered metoprolol 2.5 mg IV -- RN assessing response. Metoprolol tartrate increased to 150 mg BID. ABLA - hgb improved to 9.6. Cont to monitor. Electrolytes are stable. Hypothyroidism with low TSH and normal free T4 - Synthroid dose decreased from 112 to 88 mcg. Rt leg ecchymosis and post op swelling. No calf tenderness. INR therapeutic. <Tej Lopez - Last Filed: 02/05/18 12:43> Exam Vital signs: Temperature 97.0 F 01/31/18 07:20 Pulse Rate 138 H 01/31/18 09:54 Respiratory Rate 18 01/31/18 07:20 Blood Pressure 130/82 01/31/18 07:28 Pulse Oximetry 97 01/31/18 07:28 Inpatient Medications: Discontinued Medications Generic Name Dose Route Start Last Admin Trade Name Freq PRN Reason Stop Dose Admin Acetaminophen 650 mg 01/23/18 17:00 01/31/18 08:17 Tylenol PO 650 mg QID YAKOV Administration Bisacodyl 10 mg 01/23/18 20:00 01/23/18 20:41 Dulcolax RECTALLY 01/23/18 20:01 Not Given DAILY YAKOV Digoxin 250 mcg 01/26/18 10:34 Lanoxin PO 01/26/18 10:35 ONE TIME ONE Digoxin 250 mcg 01/25/18 10:34 01/25/18 10:40 Lanoxin PO 01/25/18 10:35 250 mcg ONE TIME ONE Administration Digoxin 125 mcg 01/28/18 14:30 01/31/18 08:14 Lanoxin PO 125 mcg DAILY YAKOV Administration Digoxin 125 mcg 01/30/18 09:52 01/30/18 09:58 Lanoxin PO 01/30/18 09:53 125 mcg O ONE Administration Diphenhydramine HCl 25 mg 01/23/18 16:43 Benadryl PO Q6H PRN Itching Diphenhydramine HCl 25 mg 01/23/18 16:43 Benadryl IVP Q6HR PRN Itching Docusate Sodium 100 mg 01/23/18 21:00 01/24/18 08:15 Colace PO 100 mg BID YAKOV Administration Docusate Sodium 100 mg 01/24/18 09:26 Colace PO BID PRN Enoxaparin Sodium 70 mg 01/23/18 21:00 01/27/18 08:36 Lovenox SQ 70 mg BID YAKOV Administration Furosemide 40 mg 01/30/18 15:45 01/31/18 08:17 Lasix 40 Mg Tab PO 40 mg DAILY YAKOV Administration Isopropyl Alcohol 1 each 01/23/18 22:00 01/31/18 08:07 Nozin Nasal Swab GISELL Not Given 0600,1400,2200 YAKOV Levothyroxine Sodium 112 mcg 01/24/18 06:30 01/24/18 06:14 Synthroid PO Not Given ACB YAKOV Levothyroxine Sodium 88 mcg 01/25/18 06:30 01/31/18 05:30 Synthroid PO 88 mcg ACB YAKOV Administration Lorazepam 1 mg 01/23/18 16:43 Ativan PO HS PRN Sleep Losartan Potassium 50 mg 01/23/18 21:00 01/31/18 08:14 Cozaar PO 50 mg BID YAKOV Administration Metoprolol Tartrate 50 mg 01/23/18 17:30 01/24/18 08:19 Lopressor PO 50 mg BIDWM YAKOV Administration Metoprolol Tartrate 100 mg 01/24/18 17:30 01/27/18 08:35 Lopressor PO 100 mg BIDWM YAKOV Administration Metoprolol Tartrate 50 mg 01/24/18 08:51 01/24/18 08:57 Lopressor PO 01/24/18 08:52 50 mg O ONE Administration Metoprolol Tartrate 2.5 mg 01/27/18 10:21 01/27/18 10:40 Lopressor IVP 01/27/18 10:22 2.5 mg ONCE ONE Administration Metoprolol Tartrate 150 mg 01/27/18 17:30 01/27/18 17:53 Lopressor PO Not Given BIDWM YAKOV Metoprolol Tartrate 200 mg 01/27/18 17:45 01/31/18 08:13 Lopressor PO 200 mg BIDWM YAKOV Administration Probiotic Caps - 1 each 01/25/18 13:00 01/25/18 12:33 Lactobacillus PO 1 each DAILY@1300 YAKOV Administration Probiotic Caps - 1 each 01/26/18 12:00 01/30/18 12:18 Lactobacillus PO 1 each DAILY@1200 YAKOV Administration Ondansetron HCl 4 mg 01/23/18 16:43 01/30/18 18:18 Zofran IVP 4 mg Q4H PRN Administration Nausea &/or vomiting Pharmacy Consult 1 each 01/23/18 16:43 Pharmacy Consult - Fall Risk XX 01/23/18 16:44 ONE TIME ONE Polyethylene Glycol 17 gm 01/24/18 09:00 01/31/18 09:56 Miralax PO Not Given DAILY [facility] Potassium Chloride 20 meq 01/23/18 17:30 01/31/18 08:14 K-Dur 20 Meq Tablet PO 20 meq TIDWM YAKOV Administration Potassium Chloride 20 meq 01/30/18 15:35 01/30/18 16:02 K-Dur 20 Meq Tablet PO 01/30/18 15:36 20 meq O ONE Administration Potassium Chloride 20 meq 01/31/18 08:00 K-Dur 20 Meq Tablet PO WB YAKOV Senna 17.2 mg 01/23/18 21:00 01/30/18 20:22 Senna Lax PO Not Given HS [facility] Senna 17.2 mg 01/23/18 16:43 Senna Lax PO DAILY PRN Constipation Sodium Chloride 10 ml 01/27/18 20:39 01/30/18 20:23 Iv Flush IV 10 ml PRN PRN Administration Flushing Tramadol HCl 50 - 100 mg 01/23/18 16:43 01/31/18 08:26 Ultram PO 50 mg Q6H PRN Administration Pain Verapamil HCl 180 mg 01/24/18 09:00 01/25/18 09:05 Calan Sr PO 180 mg DAILY YAKOV Administration Verapamil HCl 240 mg 01/25/18 14:15 01/25/18 18:21 Calan Sr PO Not Given DAILY YAKOV Verapamil HCl 80 mg 01/25/18 17:00 01/25/18 17:47 Calan PO 01/25/18 17:01 80 mg O ONE Administration Verapamil HCl 240 mg 01/26/18 09:00 01/31/18 08:16 Calan Sr PO 240 mg DAILY YAKOV Administration Warfarin Sodium 1 each 01/24/18 08:55 01/25/18 08:36 Pharmacy Consult - Warfarin 01/24/18 08:56 1 each O ONE Administration Warfarin Sodium 0 01/24/18 09:15 Coumadin Protocol NOTE YAKOV Warfarin Sodium 6 mg 01/24/18 12:00 01/24/18 12:24 Coumadin PO 01/24/18 12:30 6 mg NOON YAKOV Administration Warfarin Sodium 6 mg 01/25/18 12:00 01/25/18 12:31 Coumadin PO 01/25/18 13:00 6 mg NOON YAKOV Administration Warfarin Sodium 6 mg 01/26/18 12:00 01/26/18 12:08 Coumadin PO 01/26/18 13:00 6 mg NOON YAKOV Administration Warfarin Sodium 5 mg 01/27/18 12:00 01/27/18 12:24 Coumadin PO 01/27/18 12:30 5 mg NOON YAKOV Administration Warfarin Sodium 2.5 mg 01/28/18 12:00 01/28/18 12:26 Coumadin PO 01/28/18 12:30 2.5 mg NOON YAKOV Administration Warfarin Sodium 3 mg 01/30/18 12:00 01/30/18 12:18 Coumadin PO 01/30/18 12:30 3 mg NOON YAKOV Administration Warfarin Sodium 4 mg 01/31/18 12:00 Coumadin PO 01/31/18 12:15 NOON YAKOV Results 01/31/18 04:13 01/31/18 04:13 Assessment and Plan - Assessment and Plan (1) Paroxysmal atrial fibrillation Status: Chronic (2) Nonrheumatic mitral valve insufficiency Status: Chronic (3) Non-rheumatic tricuspid valve insufficiency Status: Chronic (4) Essential (primary) hypertension Status: Chronic (5) S/P hip replacement Problem details: 01/21/18 - Dr. Ramon (right). Status: Acute - Attestation Attestation Narrative: 02/05/18 12:43 Recommendation After examining the patient I agree with the above assessment. I am involved in the formulation of the patient's plan of care. Hospital Course Summary Disclaimer: The visit summary below is not to be considered part of the above Progress Note.
[2018-01-30] MEDS: SENNOSIDES 8.6 MG TABLET PO SCH (20:22)
[2018-01-31] MEDS: NOZIN NASAL SWAB NAS SCH ×2 (05:29→08:07)
[2018-01-31] MEDS: LEVOTHYROXINE 88 MCG TABLET PO SCH (05:30)
[2018-01-31 07:27] VITALS: RESP 18; TEMP 97
[2018-01-31 07:29] VITALS: BP 130/82; O2SAT 97
--- NOTE | 2018-01-31 07:43 | Pharmacy Consult ---
Pharmacy Consult-Warfarin - Laboratory Information 01/24/18 01/25/18 01/26/18 04:03 04:25 06:36 INR 1.47 H 1.84 H 2.00 H 01/27/18 01/28/18 01/29/18 08:06 06:16 04:44 INR 2.4 2.90 H 2.90 H 01/30/18 01/31/18 04:07 04:13 INR 2.30 H 1.90 H - Consult Information We will give warfarin 4mg p.o. today at noon after unexpected drop in INR. Enoxaparin bridge may or may not be used. Provider to assess. Thanks
[2018-01-31] MEDS: DIGOXIN 125 MCG TABLET PO SCH (08:14)
[2018-01-31] MEDS: LOSARTAN 50 MG TABLET PO SCH (08:14)
[2018-01-31] MEDS: Verapamil SR 120 MG TABLET E.R. PO SCH (08:16)
[2018-01-31] MEDS: POLYETHYL GLYCOL 3350 17gm PACKET PO SCH ×2 (08:17→09:56)
[2018-01-31] MEDS: ACETAMINOPHEN 325 MG TABLET PO SCH (08:17)
[2018-01-31] MEDS: FUROSEMIDE 40 MG TABLET PO SCH (08:17)
[2018-01-31] MEDS: TRAMADOL 50 MG TABLET PO PRN (08:26)
[2018-01-31 09:55] VITALS: PULSE 138
--- NOTE | 2018-01-31 09:58 | IRU Progress Note ---
- Subjective/Serverity of Illness Date: 01/31/18 Ms. Webb was interviewed and examined in her room on acute inpatient rehabilitation. She had an episode of hypotension yesterday with some bradycardia. Medications were held. Hemoglobin was rechecked and was stable. Today she is feeling much better. Hemoglobin remains stable. Her heart rate is between 101 125 or so. I have discussed her case with the hospitalist service who was also discussed with cardiology. Plans are at this time for her to return home with follow-up as an outpatient. The patient denies any chest pain or shortness of breath. She denies any lightheadedness. Continues to have easy fatigability. At the present time her heart rate appears to be fairly well controlled and standing blood pressure is 130 systolic. Exam Vital Signs: Temperature 97.0 F 01/31/18 07:20 Pulse Rate 138 H 01/31/18 09:54 Respiratory Rate 18 01/31/18 07:20 Blood Pressure 130/82 01/31/18 07:28 Pulse Oximetry 97 01/31/18 07:28 Height/Weight/BMI: Height 1.65 m Weight 77.5 kg Body Mass Index 29.6 - Constitutional Present: no acute distress, well nourished, well developed, cooperative - Routine HEENT Exam Eye: Present: EOMI ENT: Present: mucous membranes moist, oropharynx clear - Routine Neck Exam Present: supple - Routine Respiratory Exam Present: CTA bilaterally. Absent: wheezes - Routine Cardiovascular Exam Present: S1, S2, irregularly irregular. Absent: murmur - Routine Abdominal Exam Present: soft, normoactive bowel sounds, non distended. Absent: tenderness - Routine Extremities Exam Present: edema (trace edema right lower extremity as anticipated from her surgery.), normal capillary refill - Routine Skin Exam Present: dry, warm - Routine Neurological Exam Present: alert, oriented X3, CN II-XII intact - Routine Psychiatric Exam Present: normal affect, cooperative Results IRU - Labs Labs: Other provider's notes, chart data and labs are reviewed. IRU A/P (1) S/P hip replacement Qualifiers: Laterality: right Qualified Code(s): Z96.641 - Presence of right artificial hip joint Problem details: 01/21/18 - Dr. Ramon (right). Current visit: Yes Status: Acute Patient states that she continues to have pain in the right hip as anticipated. Tramadol is beneficial for her. She will be sent home with a prescription for this. (2) Paroxysmal atrial fibrillation Current visit: Yes Status: Chronic Her atrial fibrillation is turning into be more chronic than paroxysmal. Medications have been adjusted. (3) Nonrheumatic mitral valve insufficiency Current visit: No Status: Chronic (4) Non-rheumatic tricuspid valve insufficiency Current visit: No Status: Chronic (5) Essential (primary) hypertension Current visit: No Status: Chronic Patient's blood pressures are more well controlled at the present time. DVT Prophylaxis: Coumadin Resuscitation Status: Do Not Resuscitate - Course Hospital Course: Hoang Mondragon MD: 01/24/18 11:27 Getting started with therapy and appears to be participatory. Reports pain adequately controlled in the hip. Atrial fib with occasional responses up to 133, asymptomatic. Denies dyspnea. 01/27/18 10:31 She does develop some loose stools. C. difficile is pending. Continues to have rapid ventricular response with her atrial fibrillation. Verapamil has been increased area Blood pressures a bit elevated. Complains of fatigue but no dyspnea. 01/28/18 10:43 Loose stools abating. She reports firm stools at present. Easy fatigability. Metoprolol increased to 200 mg twice daily. RVR a bit improved at 100-120. 01/30/18 10:43 Digoxin increased. Ventricular rate remains above 100 much of the time. Continues to have easy fatigability. No dyspnea. Pain improved. 01/31/18 09:59 Borderline hypotension yesterday, now improved. Heart rate remains an issue although on multiple medications for this. Denies lightheadedness or dyspnea today. - Interventions to Obtain Goals PT Treatment Plan: Balance/Proprioception, Functional Activities, Manual Therapy , Patient/Family Education, Therapeutic Exercise OT Treatment Plan: ADL (Basic Care), Balance Training, IADL, Pt./Family Education, Ther. Exercise for ADL Goals Progress/Modifications: Patient states that she feels like she is safe to go home. She is not lightheadedness and is not dizzy. Blood pressures remained 130 systolic standing. Hemoglobin is stable. She will follow-up as outpatient. Please see letter to attending physician as well.
[2018-01-31] MEDS ORDERED: WARFARIN 4 MG TABLET PO SCH (12:00)
--- NOTE | 2018-01-31 12:23 | Progress Note ---
- Date 01/31/18 Subjective: Patient is seen in her room this morning. She looks much better today. She states she feels much better as well. SHe is going home today. She lives with her son and her friend will be bringing supper to her tonight. No CP or SOA. She reports that she will commonly feel very worn out for part of the day even when she is at home, so her sxs yesterday weren't totally uncharacteristic for her. Objective Vital signs: Temperature 97.0 F 01/31/18 07:20 Pulse Rate 138 H 01/31/18 09:54 Respiratory Rate 18 01/31/18 07:20 Blood Pressure 130/82 01/31/18 07:28 Pulse Oximetry 97 01/31/18 07:28 Rhythm: Atrial Fibrillation with RVR Height/Weight/BMI: Height 1.65 m Weight 77.5 kg Body Mass Index 29.6 - Constitutional Present: no acute distress, well nourished, well developed - Routine HEENT Exam Head: Present: normocephalic, atraumatic - Routine Respiratory Exam Present: CTA bilaterally. Absent: wheezes - Routine Cardiovascular Exam Present: no murmur, irregularly irregular - Routine Abdominal Exam Present: soft, non distended, non tender - Routine Extremities Exam Present: normal capillary refill Comments: tr edema R foot - Routine Skin Exam Present: dry, warm - Routine Neurological Exam Present: alert, oriented X3 - Routine Lymphatic Exam Lymphatic: Absent: adenopathy - Routine Psychiatric Exam Present: normal affect, cooperative Results - Labs CBC & Chem 7: 01/31/18 04:13 01/31/18 04:13 Assessment and Plan (1) Paroxysmal atrial fibrillation Status: Chronic (2) Nonrheumatic mitral valve insufficiency Status: Chronic (3) Non-rheumatic tricuspid valve insufficiency Status: Chronic (4) S/P hip replacement Problem details: 01/21/18 - Dr. Ramon (right). Status: Acute Assessment and Plan: Assessment: S/P right hip arthroplasty - 01/21/18, Dr. Ramon. Generalized debility and gait instability secondary to recent surgery. Paroxysmal a-rib with RVR. Acute blood loss anemia. Hypothyroidism - currently on Synthroid (currently over-replaced). Hypertension. Nonrheumatic mitral and tricuspid insufficiency. Chronic anticoagulation on warfarin. Osteoarthritis. Cataracts. History of hypokalemia- resolved. History of cardioversion - 06/20/15, Dr. Lopez. Plan Discussed case with cardiology BONUS CLERK (Verito Coronado). Plan is to continue current metoprolol and verapamil and dig dose and f-u with Dr. Lopez in 2-3 wks. Patient will check BP/pulse at home and call Dr. Lopez's office with any concerns. Hgb stable today 8.8-->8.9 Discussed warfarin dosing with pharmacy --recommending home on 3mg qd with repeat INR within a week - Physician Narrative Narrative: Date: 01/31/18 Time: 1217 Hospital Course Summary Disclaimer: The visit summary below is not to be considered part of the above Progress Note. Hospital Course: Plan - 01/24/18: Admit IRU for continued therapies and pain control per Dr. Mondragon for improvement in functional abilities and strength. A-fib with RVR (HR 140-150) on admission. Recent treatment in ICU with esmolol drip with improvement. Drip discontinued 01/22/18. Continue home medications - Cozaar 50mg BID and verapamil SR 180mg daily. Home metoprolol dose was increased from 50mg BID to 100mg BID by cardiology on . Will continue metoprolol 100mg BID. Consult Dr. Lopez for continued cardiac care. Continue to monitor closely on telemetry. History of hypothyroidism. Home Synthroid dose 112mcg daily. TSH on 01/22/18 was low at 0.17. Will decrease Synthroid dose to 88mcg daily and recommend rechecking TSH in 4-6 weeks. Hemoglobin slow trending down since surgery. Currently Hgb 9.0. Continue to monitor periodically. Patient asymptomatic without signs of acute bleeding. Lovenox for DVT prophylaxis and bridge therapy with Coumadin until INR therapeutic - currently INR 1.47. SCDs. Encourage incentive spirometry. Recheck labs on 01/26/18 to monitor blood counts, electrolytes and renal function. Plan - 01/25/18: Patient is improving- participating in therapy. She continues to struggle with an elevated HR- need to reassess labs in AM- anemia may be a part of the uncontrolled HR. Provided Dig x 1 dose only. Noted BB dosing was increased. Give Verapamil IR this evening, and then increase dose of SR to 240mg tomorrow AM. Continue Warfarin/Lovenox. (Consider change to NOAC?). Some mild hyperthyroid- Synthroid decreased. Recheck TSH in a few weeks. Monitor electrolytes. Overall, she is doing well. 01/27/18 A-fib with RVR: Hr 160 (BP stable) during assessment today; RVR persists after verapamil 240 mg and metoprolol 100 mg this am. Verito Coronado APRN ordered metoprolol 2.5 mg IV -- RN assessing response. Metoprolol tartrate increased to 150 mg BID. ABLA - hgb improved to 9.6. Cont to monitor. Electrolytes are stable. Hypothyroidism with low TSH and normal free T4 - Synthroid dose decreased from 112 to 88 mcg. Rt leg ecchymosis and post op swelling. No calf tenderness. INR therapeutic.
--- NOTE | 2018-01-31 13:40 | Discharge Summary ---
Discharge Information Date of admission: 01/23/18 16:00 Anticipated date of discharge: 01/31/18 Attending Physician: Hoang Mondragon MD Primary care physician: Richar Neff MD Consults: 01/23/18 16:43 Case Management Consult [CONS] Routine Reason For Exam: Discharge Planning DME-Walker [CONS] Routine Height: 1.63 m Weight: 69.8 kg Total Joint Outpatient Therapy [CONS] Routine Comment: Remove dressing in 2 weeks 01/23/18 17:08 Physician Consult [CONS] Routine Consulting Provider: Gerardo Morgan Reason For Exam: medical management Ordering Provider has Notified Tax Services Manager: No 01/24/18 08:46 Physician Consult [CONS] Routine Consulting Provider: Tej Lopez Reason For Exam: afib with RVR Ordering Provider has Notified Tax Services Manager: Yes - Discharge Diagnosis (1) S/P hip replacement Status: Acute (2) Paroxysmal atrial fibrillation Status: Chronic (3) Nonrheumatic mitral valve insufficiency Status: Chronic (4) Non-rheumatic tricuspid valve insufficiency Status: Chronic (5) Essential (primary) hypertension Status: Chronic 1. Status post right total hip replacement 2. Paroxysmal atrial fibrillation with rapid ventricular response 3. Benign essential hypertension 4. Acute blood loss anemia - Laboratory Labs: 01/31/18 04:13 01/31/18 04:13 History of Present Illness HPI: Ms. Webb was electively admitted to the hospital acute care by Dr. Vicente Ramon for a right hip arthroplasty which was performed on 01/21/2018. She did well with surgery but postoperatively developed paroxysmal atrial fibrillation with rapid ventricular response. She was seen by Dr. Lopez and this was managed. She was treated medically with verapamil and esmolol. She had apparently been offered an RF ablation procedure in the past but had declined that. She had developed multiple functional deficits as a result of her recent right hip arthroplasty. In addition she requires close monitoring of her cardiac status in view of the recent atrial fibrillation with rapid ventricular response. She was stabilized while on acute care and then transferred to acute inpatient rehabilitation on 01/23/2018 for a multidisciplinary approach to her recovery. Hospital Course This is a general summary of the patient's hospital course. For more details refer to the complete medical record. She was admitted to acute inpatient rehabilitation and followed by cardiology as well as the hospitalist service. Her verapamil was increased to 240 mg daily and metoprolol was increased to 200 mg twice daily because of her continued problem with atrial fibrillation with rapid ventricular response. In addition her blood pressures remained elevated. She was started on digoxin and this was increased and monitored by cardiology. Her warfarin dose was adjusted and her INR was monitored by the pharmacy. It is noted that her INR on 01/31/2018 was 1.90 on warfarin 3 mg daily. It was recommended the patient obtain another INR within the next 5-7 days. Her hemoglobin is 8.9 g percent which has been stable. The following gains are to be considered preliminary information. The reader is encouraged to refer to actual therapy notes and reports for specific details. At the conclusion of her treatment on inpatient rehabilitation, the following functional status is identified: She was independent for eating and grooming as well as upper body dressing. She was modified independent level for bathing and lower body dressing. She was modified independent for toilet transfer assist and standby assist for shower transfer assist. She was modified independent for other transfers. She was seen by physical therapy. A Tinetti balance test was performed on January 30 demonstrating a score of 19 which places her borderline risk for falls. For bed/chair/wheelchair transfers she was modified independent to standby assist. She was standby assist for car transfers and standby assist for ambulation at 380 feet with a front-wheeled walker. Hemoglobin dropped from 9.6 down to 8.8 as of 01/29/2018. On 01/31/2018 it was 8.9. There was some bloody discharge from the wound and René Tapia evaluated that. He felt as though the wound looked fine and the dressing was changed. The patient continues to demonstrate evidence of significant hypertension as well as rapid ventricular response despite escalating her doses of beta blockers and verapamil. Cardiology added on digoxin. In addition they added on furosemide due to fluid excess. He was recommended to the patient that follow- up BMP be obtained in 3 days as an outpatient. At the time dismissal she is felt to be stable. Her blood pressure is 130 systolic standing. Her heart rate remains around 100-120 and at times higher. She is sent home on tramadol 50 mg #40 with no refills for pain management as well as Tylenol. She will follow-up with Dr. Ramon and Dr. Neff. Hospital course: Plan - 01/24/18: Admit IRU for continued therapies and pain control per Dr. Mondragon for improvement in functional abilities and strength. A-fib with RVR (HR 140-150) on admission. Recent treatment in ICU with esmolol drip with improvement. Drip discontinued 01/22/18. Continue home medications - Cozaar 50mg BID and verapamil SR 180mg daily. Home metoprolol dose was increased from 50mg BID to 100mg BID by cardiology on . Will continue metoprolol 100mg BID. Consult Dr. Lopez for continued cardiac care. Continue to monitor closely on telemetry. History of hypothyroidism. Home Synthroid dose 112mcg daily. TSH on 01/22/18 was low at 0.17. Will decrease Synthroid dose to 88mcg daily and recommend rechecking TSH in 4-6 weeks. Hemoglobin slow trending down since surgery. Currently Hgb 9.0. Continue to monitor periodically. Patient asymptomatic without signs of acute bleeding. Lovenox for DVT prophylaxis and bridge therapy with Coumadin until INR therapeutic - currently INR 1.47. SCDs. Encourage incentive spirometry. Recheck labs on 01/26/18 to monitor blood counts, electrolytes and renal function. Plan - 01/25/18: Patient is improving- participating in therapy. She continues to struggle with an elevated HR- need to reassess labs in AM- anemia may be a part of the uncontrolled HR. Provided Dig x 1 dose only. Noted BB dosing was increased. Give Verapamil IR this evening, and then increase dose of SR to 240mg tomorrow AM. Continue Warfarin/Lovenox. (Consider change to NOAC?). Some mild hyperthyroid- Synthroid decreased. Recheck TSH in a few weeks. Monitor electrolytes. Overall, she is doing well. 01/27/18 A-fib with RVR: Hr 160 (BP stable) during assessment today; RVR persists after verapamil 240 mg and metoprolol 100 mg this am. Verito Coronado APRN ordered metoprolol 2.5 mg IV -- RN assessing response. Metoprolol tartrate increased to 150 mg BID. ABLA - hgb improved to 9.6. Cont to monitor. Electrolytes are stable. Hypothyroidism with low TSH and normal free T4 - Synthroid dose decreased from 112 to 88 mcg. Rt leg ecchymosis and post op swelling. No calf tenderness. INR therapeutic. Time spent with patient: greater than 35 minutes Resuscitation Status: Do Not Resuscitate Discharge Plan - Med Rec/Dispo Referrals/Follow Up: Tej Lopez MD [Physician] - (Tej Lopez MD [Physician] - 2 Weeks ( 2 weeks following discharge from IRU.) ) Richar Neff MD [Family Provider] - (Dr. Lara Neff on 02/05/18 at 8:40 am for Hosp. follow-up. [facility] [address] [place] [address]) Vicente Ramon MD [Physician] - (Dr. Sedrick Ramon on 02/12/18 at 2:15 pm for Post-Op follow-up. [facility] [address] [place] [address] [place] [id number]) [facility] Instructions: A-fib (Atrial Fibrillation) (DC), Hypertension (DC), Fall Prevention (DC), Safe Use of Anticoagulants (DC) Prescriptions: New Digoxin [Lanoxin] 125 mcg PO DAILY #30 tab Furosemide [Lasix 40 mg Tab] 40 mg PO DAILY #30 tab Levothyroxine Tab [Synthroid] 88 mcg PO ACB #30 tab PEG 3350 17gm PACKET [Miralax] 17 gm PO DAILY packet Verapamil SR [Calan Sr] 240 mg PO DAILY #30 tab Warfarin [Coumadin] 3 mg PO DAILY #30 tab Metoprolol Tartrate [Lopressor] 200 mg PO BIDWM #60 tab Continue colon health 1 cap PO 1200 #0 Hector-3/Dha/Epa/Fish Oil [Fish Oil 1,000 mg Softgel] 1 each PO DAILY Acetaminophen [Tylenol] 650 mg PO QID tab Calcium 500 + D [Os Jerry-D 500] 1 tab PO DAILY Losartan [Cozaar] 50 mg PO BID Potassium Chloride [K-DUR 20 mEq Tablet] 1 tab PO TID #30 tab Ergocalciferol (Vitamin D2) [Vitamin D2] 50,000 unit PO NOTE PEG 3350 17gm PACKET [Miralax] 17 gm PO DAILY packet Changed Tramadol [Ultram] 50 mg PO Q6H PRN #40 tab PRN Reason: Pain Discontinued Levothyroxine Sodium 112 mcg PO DAILY #0 Verapamil HCl [Verapamil ER] 180 mg PO DAILY Enoxaparin Sodium [Lovenox] 70 mg SQ BID syringe Metoprolol Tartrate 100 mg PO BID #0 Verapamil SR [Calan Sr] 180 mg PO DAILY tab - Disposition 01 Discharged Home, Self-Care - Dismissal Complete Discharge Instructions are:: Complete
--- NOTE | 2018-01-31 13:42 | Letter to Referring Physician ---
Dear Doctor Neff, This is a brief note to bring you up-to-date on the status of Tika Webb and her stay on the acute inpatient rehabilitation unit at [facility]. As you are likely aware, this patient was admitted to the acute care hospital by Dr. Ramon for right total hip arthroplasty. In the immediate postoperative timeframe she demonstrated rapid ventricular response from her atrial fib and she was seen by Dr. Lopez. This was managed medically. The patient was stabilized while on the acute level and admitted to inpatient rehabilitation unit at [facility] on January 23, 2018. While on inpatient rehabilitation, this patient was seen by occupational therapy and physical therapy and improved overall in their functional ability. We also monitored and managed the patient's atrial fib with RVR and her hypertension while on Acute Rehab. Please see a copy of the history and physical examination as well as discharge summary enclosed with this letter for further details. We do recommend that the patient obtain BMP in about 3 days after dismissal. Patient was advised of this. We also recommend follow-up INR in the next 5 days or so. Please note that her INR is 1.90 on warfarin 3 mg daily as of 2017. Her hemoglobin is 8.9 which is stable on the same date. She was sent home with tramadol 50 mg tablets #40 with no refills. She is felt to be stable at the time of dismissal. Thank you for allowing us to be involved in this nice patient's care. Please contact me directly should you have any questions regarding their stay on the inpatient rehabilitation unit. Sincerely, Hoang Mondragon M.D.
== END 2018-01-31 11:38 | disposition home health service (06) | DRG 560 ==
PROVIDERS: ADMIT Internal Medicine; ATTEND Internal Medicine